=== PATIENT | female | born 1950 | race Hispanic/Latino ===

== ENCOUNTER 2018-03-04 09:43 | Emergency (ER) | payer OTHER ==
[2018-03-04 10:40] LABS: Absolute Lymphocytes (CBC) 2.2 K/uL (0.7-4.9); Absolute Monocytes 0.3 K/uL (0.1-1.3); Absolute Neutrophil 3.6 K/uL (1.8-8.0); Basophils % 0.8 % (0-1.3); Eosinophils % 2.9 % (0-4.4); Hematocrit 40.2 % (36.0-45.0); Lymphocytes % 34.9 % (15.3-44.8); MCH 29.6 pg (27.0-35.0); MCV 89.7 fL (80-100); MPV 9.9 fL (7.6-11.3); Monocytes % 4.5 % (3.3-12.3); RBC Red Blood Cell Count 4.48 M/uL (3.86-4.86)
[2018-03-04] MEDS ORDERED: PROMETHAZINE 25 MG/ML VIAL ONE (10:45)
[2018-03-04] MEDS ORDERED: MEPERIDINE HCL 25 MG/0.5 ML ONE (10:45)
[2018-03-04 10:51] LABS: Protime INR 0.93
[2018-03-04 11:01] LABS: ALT/SGPT 27 U/L (12-78); AST/SGOT 33 U/L (15-37); Albumin 3.3 g/dL (3.4-5.0); Alkaline Phosphatase 107 U/L (45-117); BUN Blood Urea Nitrogen 31 mg/dL (7-18); Bicarbonate 25 mmol/L (21-32); Bilirubin Direct 0.1 mg/dL (0-0.2); Bilirubin Total 0.4 mg/dL (0.2-1.0); Glucose Level 238 mg/dL (74-106); Magnesium 2.4 mg/dL (1.8-2.4); NT PRO-BNP 61 pg/mL (<125); Potassium 4.5 mmol/L (3.5-5.1); Protein, Total 7.3 g/dL (6.4-8.2); Sodium Level 138 mmol/L (136-145); Troponin (Emerg Dept Use Only) < 0.02 ng/mL (0.0-0.045)
--- NOTE | 2018-03-04 11:20 | RAD REPORT ---
EXAM DESCRIPTION: US - Abdomen Exam Limited - 03/04/2018 11:03 am CLINICAL HISTORY: r/o GB;Abd pain COMPARISON: No comparisons FINDINGS: The gallbladder demonstrates no gallstones. No pericholecystic fluid or gallbladder wall t hickening. The common bile duct is upper limit of normal measuring 7 mm. The liver demonstrates no findings of intrahepatic biliary dilatation. IMPRESSION: Negative for gallstones or cholecystitis findings. Upper limit of normal CBD.
--- NOTE | 2018-03-04 11:21 | RAD REPORT ---
EXAM DESCRIPTION: RAD - Chest Single View - 03/04/2018 10:52 am CLINICAL HISTORY: CHEST PAIN Chest pain. COMPARISON: No comparisons FINDINGS: Portable technique limits examination quality. The lungs are grossly clear. The heart is upper limit of normal in size. No displaced fractures. IMPRESSION: No acute intrathoracic process suspected.
--- NOTE | 2018-03-04 12:04 | RAD REPORT ---
EXAM DESCRIPTION: CTAbdomen Pelvis W Contrast - 03/04/2018 11:57 am CLINICAL HISTORY: Abdominal pain. iv only;Abd pain COMPARISON: Abdomen Exam Limited dated 03/04/2018; Chest Single View dated 03/04/2018 TECHNIQUE: Biphasic CT imaging of the abdomen and pelvis was performed with 100 ml non-ionic IV cont rast. All CT scans are performed using dose optimization technique as appropriate and may include automated exposure control or mA/KV adjustment according to patient size. FINDINGS: The lung bases are clear. Mild fatty liver is present. No focal liver lesion or biliary dilatation suspected. The spleen, adren al glands and pancreas show no aggressive or worrisome finding. No bowel obstruction, free air, free fluid or abscess. Prominent sigmoid diverticulosis is present wi thout diverticulitis. The appendix is normal. Small fat containing umbilical hernia. No evidence of s ignificant lymphadenopathy. No suspicious bony findings. IMPRESSION: No acute intra-abdominal or pelvic finding. Fatty liver. Prominent sigmoid diverticulosis coli without diverticulitis.
[2018-03-04] MEDS ORDERED: NA CHLORIDE 0.9% 500 ML ONE (13:05)
--- NOTE | 2018-03-04 13:29 | ER ---
Nurse's Notes [facility] Name: Caryl Watt Age: 67 yrs Sex: Female : 1950 Arrival Date: 03/04/2018 Time: 09:44 Bed 4 Private MD: Diagnosis: Upper abdominal pain, unspecified Presentation: 03/04 09:53 Presenting complaint: Patient states: pain to mid-sternal area and epigastric area aa5 radiating around to right side of back that began 3 days ago. Transition of care: patient was not received from another setting of care. Onset of symptoms was February 2018. Risk Assessment: Do you want to hurt yourself or someone else? Patient reports no desire to harm self or others. Initial Sepsis Screen: Does the patient meet any 2 criteria? No. Patient's initial sepsis screen is negative. Does the patient have a suspected source of infection? No. Patient's initial sepsis screen is negative. Care prior to arrival: None. 09:53 Method Of Arrival: Ambulatory aa5 09:53 Acuity: KAYLENE 3 aa5 Historical: - Allergies: 09:55 No Known Allergies; aa5 - PMHx: 09:55 Hypertension; Diabetes - IDDM; aa5 - PSHx: 09:55 Hysterectomy; aa5 - Immunization history:: Flu vaccine is up to date. - Social history:: Smoking status: Patient/guardian denies using tobacco. - Ebola Screening: : No symptoms or risks identified at this time. Screenin:17 Abuse screen: Denies threats or abuse. Denies injuries from another. Nutritional bp screening: No deficits noted. Tuberculosis screening: No symptoms or risk factors identified. Fall Risk None identified. Assessment: 10:00 General: Appears in no apparent distress. comfortable, obese, Behavior is calm, bp cooperative, appropriate for age. Pain: Complains of pain in chest Pain radiates to back Pain began 2-3 days ago. Neuro: Level of Consciousness is awake, alert, obeys commands, Oriented to person, place, time, situation, Appropriate for age. Cardiovascular: Rhythm is sinus rhythm. Respiratory: Airway is patent Respiratory effort is even, unlabored, Respiratory pattern is regular, symmetrical. GI: No signs and/or symptoms were reported involving the gastrointestinal system. : No signs and/or symptoms were reported regarding the genitourinary system. EENT: No deficits noted. Derm: No deficits noted. Musculoskeletal: Circulation, motion, and sensation intact. Range of motion: intact in all extremities. 10:49 Reassessment: PT TO U/S. bp 11:48 Reassessment: PT TO CT. bp 12:40 Reassessment: ALL CURRENT ORDERS COMPLETED, VS STABLE. bp 13:51 Reassessment: PT D/C HOME AMBULATORY WITH FAMILY, DX WITH NON-SPECIFIC ABDOMINAL PAIN. bp Vital Signs: 09:55 BP 133 / 54; Pulse 74; Resp 16 S; Temp 97.8(O); Pulse Ox 98% on R/A; Weight 88.45 kg aa5 (M); Height 4 ft. 11 in. (149.86 cm) (R); Pain 7/10; 10:30 BP 111 / 60; Pulse 67; Resp 16; Pulse Ox 97% ; bp 11:30 BP 117 / 62; Pulse 69; Resp 16; Pulse Ox 96% ; bp 12:34 BP 91 / 79; Pulse 60; Resp 16; Pulse Ox 98% ; bp 13:36 BP 124 / 64; Pulse 61; Resp 17; Pulse Ox 99% on R/A; aj 09:55 Body Mass Index 39.38 (88.45 kg, 149.86 cm) aa5 ED Course: 09:44 Patient arrived in ED. rg4 09:54 Triage completed. aa5 09:54 Arm band placed on. aa5 09:56 Bonilla Pradhan PA is PHCP. jr8 09:56 Murtaza Erickson MD is Attending Physician. jr8 10:06 Christiano Valdez, RN is Primary Nurse. bp 10:16 Inserted saline lock: 20 gauge in right forearm, using aseptic technique. bp 10:17 Patient has correct armband on for positive identification. Placed in gown. Bed in low bp position. Call light in reach. Side rails up X2. Adult w/ patient. hall monitor on. Pulse ox on. NIBP on. 10:44 EKG done, by ED staff, reviewed by Murtaza Erickson MD. jb1 10:47 X-ray completed. Portable x-ray completed in exam room. Patient tolerated procedure ls3 well. 10:53 XRAY Chest (1 view) In Process Unspecified. EDMS 11:04 US Abdomen Limited In Process Unspecified. EDMS 11:57 CT Abd/Pelvis - W/Contrast In Process Unspecified. EDMS 13:27 Corinne Cornejo MD is Referral Physician. jr8 13:28 Referral Physician role handed off by Corinne Cornejo MD jr8 13:28 Leoncio Mcfadden MD is Referral Physician. jr8 13:36 No provider procedures requiring assistance completed. IV discontinued, intact, aj bleeding controlled, No redness/swelling at site. Pressure dressing applied. 13:50 Patient maintains SpO2 saturation greater than 95% on room air. bp Administered Medications: 10:45 Drug: Demerol 25 mg Route: IVP; Site: right forearm; bp 11:48 Follow up: Response: Pain is decreased bp 10:45 Drug: Promethazine 12.5 mg Route: IVP; Site: right forearm; bp 11:48 Follow up: Response: Marked relief of symptoms bp 13:00 Drug: NS 0.9% 500 ml Route: IV; Rate: bolus; Site: right forearm; bp 13:37 Follow up: Response: No adverse reaction; IV Status: Completed infusion; IV Intake: aj 500ml 13:50 Follow up: IV Status: Completed infusion; IV Intake: 500ml bp Intake: 13:37 IV: 500ml; Total: 500ml. aj 13:50 IV: 500ml; Total: 1000ml. bp Outcome: 13:28 Discharge ordered by . jr8 13:36 Discharged to home ambulatory, with family. aj 13:36 Condition: good 13:36 Discharge instructions given to patient, family, Instructed on discharge instructions, follow up and referral plans. medication usage, Demonstrated understanding of instructions, follow-up care, medications, Prescriptions given X 2. 13:53 Patient left the ED. bp Signatures: Dispatcher [employer] EDMS Robert Marquez jb1 Jolanta Beckham RN RN Cherelle Rodriges RN RN [email or web address] Bonilla Pradhan PA PA jr8 Shirin Castillo4 Christiano Valdez RN RN bp Love Brooks ls3
--- NOTE | 2018-03-04 13:29 | EDPHYS ---
Physician Documentation [facility] Name: Caryl Watt Age: 67 yrs Sex: Female : 1950 Arrival Date: 03/04/2018 Time: 09:44 Bed 4 Private MD: ED Physician Murtaza Erickson HPI: 03/04 10:51 This 67 yrs old Female presents to ER via Ambulatory with complaints of jr8 Abdominal pain/back pain. 10:51 Onset: The symptoms/episode began/occurred acutely, today. Associated signs and jr8 symptoms: Pertinent positives: abdominal pain. Modifying factors: The patient symptoms are alleviated by nothing, the patient symptoms are aggravated by nothing. The patient has not experienced similar symptoms in the past. The patient has not recently seen a physician. Patient stated that she has upper abdominal pain that started today. Had bread with butter this morning that intensified that pain. Pain RUQ and epigastric region that is radiating to right back and scapular region. Denies any other problems . Historical: - Allergies: 09:55 No Known Allergies; aa5 - PMHx: 09:55 Hypertension; Diabetes - IDDM; aa5 - PSHx: 09:55 Hysterectomy; aa5 - Immunization history:: Flu vaccine is up to date. - Social history:: Smoking status: Patient/guardian denies using tobacco. - Ebola Screening: : No symptoms or risks identified at this time. ROS: 10:51 Eyes: Negative for injury, pain, redness, and discharge, ENT: Negative for injury, jr8 pain, and discharge, Neck: Negative for injury, pain, and swelling, Cardiovascular: Negative for chest pain, palpitations, and edema, Respiratory: Negative for shortness of breath, cough, wheezing, and pleuritic chest pain, Back: Negative for injury and pain, MS/Extremity: Negative for injury and deformity, Skin: Negative for injury, rash, and discoloration, Neuro: Negative for headache, weakness, numbness, tingling, and seizure. 10:51 Abdomen/GI: Positive for abdominal pain, Negative for nausea, vomiting, diarrhea, abdominal cramps, abdominal distension, anorexia, dysphagia, hematemesis, black/tarry stool, rectal pain, rectal bleeding, bowel incontinence, flatulence. Exam: 10:51 Eyes: Pupils equal round and reactive to light, extra-ocular motions intact. Lids and jr8 lashes normal. Conjunctiva and sclera are non-icteric and not injected. Cornea within normal limits. Periorbital areas with no swelling, redness, or edema. ENT: Nares patent. No nasal discharge, no septal abnormalities noted. Tympanic membranes are normal and external auditory canals are clear. Oropharynx with no redness, swelling, or masses, exudates, or evidence of obstruction, uvula midline. Mucous membranes moist. Neck: Trachea midline, no thyromegaly or masses palpated, and no cervical lymphadenopathy. Supple, full range of motion without nuchal rigidity, or vertebral point tenderness. No Meningismus. Cardiovascular: Regular rate and rhythm with a normal S1 and S2. No gallops, murmurs, or rubs. Normal PMI, no JVD. No pulse deficits. Respiratory: Lungs have equal breath sounds bilaterally, clear to auscultation and percussion. No rales, rhonchi or wheezes noted. No increased work of breathing, no retractions or nasal flaring. Back: No spinal tenderness. No costovertebral tenderness. Full range of motion. Skin: Warm, dry with normal turgor. Normal color with no rashes, no lesions, and no evidence of cellulitis. MS/ Extremity: Pulses equal, no cyanosis. Neurovascular intact. Full, normal range of motion. Neuro: Awake and alert, GCS 15, oriented to person, place, time, and situation. Cranial nerves II-XII grossly intact. Motor strength 5/5 in all extremities. Sensory grossly intact. Cerebellar exam normal. Normal gait. 10:51 Abdomen/GI: Inspection: obese Bowel sounds: active, all quadrants, Palpation: soft, in all quadrants, moderate abdominal tenderness, in the epigastric area and right upper quadrant, mass, is not appreciated, rebound tenderness, is not appreciated, voluntary guarding, is not appreciated, involuntary guarding, is not appreciated, no appreciated organomegaly, Indicators: McBurney's point is not tender, Velazco's sign is positive, Rovsing's sign is negative. 10:56 ECG was reviewed by the Attending Physician. [facility] Vital Signs: 09:55 BP 133 / 54; Pulse 74; Resp 16 S; Temp 97.8(O); Pulse Ox 98% on R/A; Weight 88.45 kg aa5 (M); Height 4 ft. 11 in. (149.86 cm) (R); Pain 7/10; 10:30 BP 111 / 60; Pulse 67; Resp 16; Pulse Ox 97% ; bp 11:30 BP 117 / 62; Pulse 69; Resp 16; Pulse Ox 96% ; bp 12:34 BP 91 / 79; Pulse 60; Resp 16; Pulse Ox 98% ; bp 13:36 BP 124 / 64; Pulse 61; Resp 17; Pulse Ox 99% on R/A; aj 09:55 Body Mass Index 39.38 (88.45 kg, 149.86 cm) aa5 MDM: 09:57 Patient medically screened. jr8 13:26 Data reviewed: vital signs, nurses notes, lab test result(s), radiologic studies, CT jr8 scan, ultrasound, and as a result, I will discharge patient. Data interpreted: Pulse oximetry: on room air is 98 %. Interpretation: normal. Counseling: I had a detailed discussion with the patient and/or guardian regarding: the historical points, exam findings, and any diagnostic results supporting the discharge/admit diagnosis, lab results, radiology results, the need for outpatient follow up, a water resource engineer, to return to the emergency department if symptoms worsen or persist or if there are any questions or concerns that arise at home. Response to treatment: the patient's symptoms have markedly improved after treatment. ED course: Discussed with family that there are no acute findings on imaging or lab work. Could be a functional gallbladder problem in which HIDA scan needs to be performed. Will refer to GI for f/u. Family and patient good with this . 03/04 10:15 Order name: Basic Metabolic Panel; Complete Time: 11:03 bp 03/04 10:15 Order name: CBC with Diff; Complete Time: 10:51 bp 03/04 10:15 Order name: LFT's; Complete Time: 11:03 bp 03/04 10:15 Order name: Magnesium; Complete Time: 11:03 bp 03/04 10:15 Order name: NT PRO-BNP; Complete Time: 11:03 bp 03/04 10:15 Order name: PT-INR; Complete Time: 10:55 bp 03/04 10:15 Order name: Troponin (emerg Dept Use Only); Complete Time: 11:03 bp 03/04 10:15 Order name: XRAY Chest (1 view); Complete Time: 11:36 bp 03/04 10:23 Order name: Lipase; Complete Time: 10:55 jr8 03/04 10:23 Order name: US Abdomen Limited; Complete Time: 11:36 jr8 03/04 11:36 Order name: CT Abd/Pelvis - W/Contrast; Complete Time: 12:14 jr8 03/04 10:15 Order name: EKG; Complete Time: 10:18 bp 03/04 10:15 Order name: Cardiac monitoring; Complete Time: 10:16 bp 03/04 10:15 Order name: EKG - Nurse/Tech; Complete Time: 10:45 bp 03/04 10:15 Order name: IV Saline Lock; Complete Time: 10:16 bp 03/04 10:15 Order name: Labs collected and sent; Complete Time: 10:16 bp 03/04 10:15 Order name: O2 Per Protocol; Complete Time: 10:16 bp 03/04 10:15 Order name: O2 Sat Monitoring; Complete Time: 10:15 bp EC:56 Rate is 65 beats/min. Rhythm is regular, Normal Sinus Rhythm. QRS [place] is Normal. CO jr8 interval is prolonged at 248 msec. QRS interval is normal at 82 msec. QT interval is normal at 428 msec. No Q waves. T waves are Normal. No ST changes noted. Clinical impression: 1st degree heart block. Interpreted by me. Reviewed by me. Administered Medications: 10:45 Drug: Demerol 25 mg Route: IVP; Site: right forearm; bp 11:48 Follow up: Response: Pain is decreased bp 10:45 Drug: Promethazine 12.5 mg Route: IVP; Site: right forearm; bp 11:48 Follow up: Response: Marked relief of symptoms bp 13:00 Drug: NS 0.9% 500 ml Route: IV; Rate: bolus; Site: right forearm; bp 13:37 Follow up: Response: No adverse reaction; IV Status: Completed infusion; IV Intake: aj 500ml 13:50 Follow up: IV Status: Completed infusion; IV Intake: 500ml bp Disposition: 03/04/18 13:28 Discharged to Home. Impression: Upper abdominal pain, unspecified. - Condition is Stable. - Discharge Instructions: Abdominal Pain, Adult, Gallbladder Nuclear Scan. - Prescriptions for Tylenol- Codeine #3 300-30 mg Oral Tablet - take 2 tablets by ORAL route every 6 hours As needed; 12 tablet. Zofran 4 mg Oral Tablet - take 1 tablet by ORAL route every 12 hours As needed; 20 tablet. - Medication Reconciliation Form, Thank You Letter, Antibiotic Education, Prescription Opioid Use form. - Follow up: Corinne Cornejo MD; When: 2 - 3 days; Reason: Recheck today's complaints, Continuance of care, Re-evaluation by your physician. Follow up: Leoncio Mcfadden MD; When: 2 - 3 days; Reason: Recheck today's complaints, Continuance of care, Re-evaluation by your physician. - Problem is new. - Symptoms have improved. Addendum: 03/07/2018 08:09 Co-signature as Attending Physician, Murtaza Erickson MD I agree with the assessment and c syed plan of care. Signatures: Dispatcher [employer] EDMurtaza Alvarado MD MD cha Calderon, Audri, RN RN aa5 Bonilla Pradhan PA PA jr8 Christiano Valdez RN RN bp Myers, Amanda RN aj Corrections: (The following items were deleted from the chart) 03/04 13:53 13:28 03/04/2018 13:28 Discharged to Home. Impression: Upper abdominal pain, bp unspecified. Condition is Stable. Forms are Medication Reconciliation Form, Thank You Letter, Antibiotic Education, Prescription Opioid Use. Follow up: Leoncio Mcfadden; When: 2 - 3 days; Reason: Recheck today's complaints, Continuance of care, Re-evaluation by your physician. Problem is new. Symptoms have improved. jr8
--- NOTE | 2018-03-05 07:04 | EKG ---
Test Date: 2018-03-04 Test Time: 10:24:08 Design Engineering Specialist: LIZZ MEASUREMENT RESULTS: Intervals: Rate: 65 SD: 248 QRSD: 82 QT: 412 QTc: 428 [place]: P: 92 SD: 248 QRS: -23 T: 31 INTERPRETIVE STATEMENTS: Sinus rhythm with 1st degree AV block Minimal voltage criteria for LVH, may be normal variant Borderline ECG No previous ECG available for comparison Electronically Signed On 03-05-18 07:03:17 ADVERTISING CLERK by Facundo Martines
== END 2018-03-04 13:53 | disposition home or self-care (01) ==
LOC: ER 09:43
DX: R10.10 Upper abdominal pain, unspecified (principal); I10 Essential (primary) hypertension
CPT/HCPCS: 36415; 71045; 74177; 76705; 80048; 80076; 83690; 83735; 83880; 84484; 85025; 85610; 93005; 96361; 96374; 96375; 99285; J2175; J2550; Q9967

== ENCOUNTER 2018-04-22 13:45 | Emergency (ER) | payer OTHER ==
[2018-04-22] MEDS ORDERED: PIPER/TAZO/NS 3.375gm 3.375 GM/100 ML BAG ONE (15:00)
[2018-04-22] MEDS ORDERED: NA CHLORIDE 0.9% 1,000 ML ONE ×2 (15:00→15:58)
[2018-04-22 15:05] LABS: Absolute Lymphocytes (CBC) 1.4 K/uL (0.7-4.9); Absolute Monocytes 0.3 K/uL (0.1-1.3); Absolute Neutrophil 4.1 K/uL (1.8-8.0); Basophils % 0.6 % (0-1.3); Eosinophils % 1.1 % (0-4.4); Hematocrit 41.4 % (36.0-45.0); Lymphocytes % 24.1 % (15.3-44.8); Monocytes % 4.9 % (3.3-12.3); RBC Red Blood Cell Count 4.59 M/uL (3.86-4.86)
[2018-04-22 15:14] LABS: Albumin 3.4 g/dL (3.4-5.0); Bilirubin Direct 0.2 mg/dL (0-0.2); Bilirubin Total 0.7 mg/dL (0.2-1.0); Potassium 3.9 mmol/L (3.5-5.1); Protein, Total 7.1 g/dL (6.4-8.2)
--- NOTE | 2018-04-22 16:09 | RAD REPORT ---
EXAM DESCRIPTION: CTAbdomen Pelvis W Contrast - 04/22/2018 3:50 pm CLINICAL HISTORY: Abdominal pain. eval rectal abscess;Abd pain COMPARISON: Abdomen Pelvis W Contrast dated 03/04/2018 TECHNIQUE: Biphasic CT imaging of the abdomen and pelvis was performed with 100 ml non-ionic IV cont rast. All CT scans are performed using dose optimization technique as appropriate and may include automated exposure control or mA/KV adjustment according to patient size. FINDINGS: The lung bases are clear. Mild diffuse fatty liver is present. No focal mass or intrahepatic dilatation. The spleen, pancreas a drenal and kidneys are within limits. No bowel obstruction, free air, free fluid or abscess. Specifically, no perirectal abscess suspected. Sigmoid diverticulosis is present without diverticulitis. The appendix is normal. No evidence of si gnificant lymphadenopathy. No suspicious bony findings. IMPRESSION: No acute intra-abdominal or pelvic finding. Specifically, a perirectal abscess is not se en. Fatty liver. Diverticulosis without diverticulitis.
--- NOTE | 2018-04-22 16:34 | EDPHYS ---
Physician Documentation [facility] Name: Caryl Watt Age: 67 yrs Sex: Female : 1950 Arrival Date: 04/22/2018 Time: 13:49 Bed 7 Private MD: ED Physician Remberto Carr HPI: 04/22 16:27 This 67 yrs old Female presents to ER via Ambulatory with complaints of gs Abscess. 16:27 The patient presents to the emergency department with pain in the rectal area, that is gs moderate. Onset: The symptoms/episode began/occurred 2 day(s) ago, and became worse and became persistent. Context: the patient has no known special context relating to the rectal area complaint(s). Modifying factors: The symptoms are alleviated by nothing, The symptoms are aggravated by sitting position. Associate signs and symptoms: Pertinent negatives: fever. The patient has not experienced similar symptoms in the past. The patient has been recently seen by a physician: Dr. cervantes, thought abscess ruled out vaginal source, thinks maybe rectal source wants work up gs consult. Historical: - Allergies: 14:11 NKA; iw - Home Meds: 14:11 Levemir 100 unit/mL subcutaneous soln 70 unit daily [Active]; Novolog 100 unit/mL Sub-Q iw soln before meals [Active]; Farxiga 10 mg oral tab 1 tab once daily [Active]; 14:17 lisinopril 20 mg Oral tab 1 tab once daily [Active]; atorvastatin 10 mg oral tab 1 tab iw once daily [Active]; acetaminophen-codeine 300-30 mg Oral tab 1 tab every 4-6 hours [Active]; Probiotic oral oral [Active]; aspirin 81 mg Oral TbEC 1 tab once daily [Active]; chromium daily [Active]; Vitamin B-12 Oral daily [Active]; milk thistle oral oral daily [Active]; - PMHx: 14:11 Diabetes - IDDM; Hypertension; Hyperlipidemia; iw - PSHx: 14:11 Hysterectomy; Tubal ligation; iw - Immunization history:: Adult Immunizations up to date. - Social history:: Smoking status: Patient/guardian denies using tobacco. - Ebola Screening: : Patient negative for fever greater than or equal to 101.5 degrees Fahrenheit, and additional compatible Ebola Virus Disease symptoms Patient denies exposure to infectious person Patient denies travel to an Ebola-affected area in the 21 days before illness onset No symptoms or risks identified at this time. ROS: 16:27 Constitutional: Negative for fever. gs 16:27 All other systems are negative. Exam: 16:27 Head/Face: Normocephalic, atraumatic. Eyes: Pupils equal round and reactive to light, gs extra-ocular motions intact. Lids and lashes normal. Conjunctiva and sclera are non-icteric and not injected. Cornea within normal limits. Periorbital areas with no swelling, redness, or edema. ENT: Nares patent. No nasal discharge, no septal abnormalities noted. Tympanic membranes are normal and external auditory canals are clear. Oropharynx with no redness, swelling, or masses, exudates, or evidence of obstruction, uvula midline. Mucous membranes moist. Neck: Trachea midline, no thyromegaly or masses palpated, and no cervical lymphadenopathy. Supple, full range of motion without nuchal rigidity, or vertebral point tenderness. No Meningismus. Chest/axilla: Normal chest wall appearance and motion. Nontender with no deformity. No lesions are appreciated. Cardiovascular: Regular rate and rhythm with a normal S1 and S2. No gallops, murmurs, or rubs. Normal PMI, no JVD. No pulse deficits. Respiratory: Lungs have equal breath sounds bilaterally, clear to auscultation and percussion. No rales, rhonchi or wheezes noted. No increased work of breathing, no retractions or nasal flaring. Back: No spinal tenderness. No costovertebral tenderness. Full range of motion. Skin: Warm, dry with normal turgor. Normal color with no rashes, no lesions, and no evidence of cellulitis. MS/ Extremity: Pulses equal, no cyanosis. Neurovascular intact. Full, normal range of motion. 16:27 Constitutional: The patient appears alert, awake. 16:27 Abdomen/GI: Palpation: abdomen is soft and non-tender, in all quadrants, Rectal exam: tenderness, that is severe, on right no erythema or induration, . Vital Signs: 14:18 BP 97 / 53; Pulse 74; Resp 16; Temp 97.9(O); Pulse Ox 98% on R/A; Weight 87.09 kg; iw Height 4 ft. 11 in. (149.86 cm); Pain 8/10; 16:14 BP 120 / 73; Pulse 68; Resp 16; Pulse Ox 97% ; bp 14:18 Body Mass Index 38.78 (87.09 kg, 149.86 cm) iw MDM: 14:13 Patient medically screened. gs 16:27 Differential diagnosis: hemorrhoids, fissure, abscess. Data reviewed: vital signs, nurses notes, lab test result(s), radiologic studies. Physician consultation: Agusto Neff MD and will see patient. 04/22 14:16 Order name: Basic Metabolic Panel; Complete Time: 15:18 04/22 14:16 Order name: CBC with Diff; Complete Time: 15:18 04/22 14:16 Order name: Hepatic Function; Complete Time: 15:18 04/22 14:16 Order name: Lipase; Complete Time: 15:18 04/22 14:16 Order name: Blood Culture* 04/22 14:34 Order name: Lactate; Complete Time: 15:18 04/22 14:16 Order name: IV Saline Lock; Complete Time: 14:51 04/22 14:16 Order name: Labs collected and sent; Complete Time: 14:51 04/22 14:16 Order name: CT Abd/Pelvis - W/Contrast; Complete Time: 16:12 gs Administered Medications: 14:53 Drug: Zosyn 3.375 grams Route: IVPB; Infused Over: 60 mins; Site: left forearm; bp 16:13 Follow up: IV Status: Completed infusion; IV Intake: 100ml bp 14:53 Drug: NS 0.9% 1000 ml Route: IV; Rate: 1 bolus; Site: left forearm; bp 16:13 Follow up: IV Status: Completed infusion; IV Intake: 1000ml bp 16:09 Drug: NS 0.9% 1000 ml Route: IV; Rate: 1 bolus; Site: left antecubital; aj1 Disposition: 04/22/18 16:33 Discharged to Home. Impression: Acute anal fissure - possible early rectal abscess, , Dehydration. - Condition is Stable. - Discharge Instructions: Anal Fissure, Adult, How to Take a Sitz Bath. - Prescriptions for lidocaine- hydrocortisone-aloe 2.8-0.55 % Rectal gel - insert 1 applicatorful by RECTAL route 2 times per day As needed; 6 Cartridge. Flagyl 250 mg Oral Tablet - take 1 tablet by ORAL route every 12 hours for 7 days; 14 tablet. Keflex 250 mg Oral Capsule - take 1 capsule by ORAL route every 12 hours for 7 days; 14 capsule. - Medication Reconciliation Form, Thank You Letter, Antibiotic Education, Prescription Opioid Use form. - Follow up: Agusto Neff MD; When: 2 - 3 days; Reason: Re-evaluation by your physician. Signatures: Dispatcher [employer] EDPinky Barreto RN RN aj1 Neris Uribe RN RN iw Remberto Carr MD MD Christiano Valdez RN RN bp Corrections: (The following items were deleted from the chart) 16:41 16:33 04/22/2018 16:33 Discharged to Home. Impression: Acute anal fissure. Condition is gs Stable. Forms are Medication Reconciliation Form, Thank You Letter, Antibiotic Education, Prescription Opioid Use. Follow up: Agusto Neff; When: 2 - 3 days; Reason: Re-evaluation by your physician. gs 17:03 16:41 04/22/2018 16:33 Discharged to Home. Impression: Acute anal fissure - possible bp early rectal abscess, ; Dehydration. Condition is Stable. Discharge Instructions: Anal Fissure, Adult, How to Take a Sitz Bath. Prescriptions for zcfveogqr-trdenpcaohxmxp-uoct 2.8-0.55 % Rectal gel - insert 1 applicatorful by RECTAL route 2 times per day As needed; 6 Cartridge, Flagyl 250 mg Oral Tablet - take 1 tablet by ORAL route every 12 hours for 7 days; 14 tablet, Keflex 250 mg Oral Capsule - take 1 capsule by ORAL route every 12 hours for 7 days; 14 capsule. and Forms are Medication Reconciliation Form, Thank You Letter, Antibiotic Education, Prescription Opioid Use. Follow up: Agusto Neff; When: 2 - 3 days; Reason: Re-evaluation by your physician. gs
--- NOTE | 2018-04-22 16:34 | ER ---
Nurse's Notes [facility] Name: Caryl Watt Age: 67 yrs Sex: Female : 1950 Arrival Date: 04/22/2018 Time: 13:49 Bed 7 Private MD: Diagnosis: Acute anal fissure-possible early rectal abscess, ;Dehydration Presentation: 04/22 14:07 Presenting complaint: Patient states: sent by Dr. Diaz for perirectal abscess. iw Transition of care: patient was not received from another setting of care. Onset of symptoms was April 22, 2018. Risk Assessment: Do you want to hurt yourself or someone else? Patient reports no desire to harm self or others. Initial Sepsis Screen: Does the patient meet any 2 criteria? No. Patient's initial sepsis screen is negative. Does the patient have a suspected source of infection? No. Patient's initial sepsis screen is negative. Care prior to arrival: None. 14:07 Method Of Arrival: Ambulatory iw 14:07 Acuity: KAYLENE 3 iw Historical: - Allergies: 14:11 NKA; iw - Home Meds: 14:11 Levemir 100 unit/mL subcutaneous soln 70 unit daily [Active]; Novolog 100 unit/mL Sub-Q iw soln before meals [Active]; Farxiga 10 mg oral tab 1 tab once daily [Active]; 14:17 lisinopril 20 mg Oral tab 1 tab once daily [Active]; atorvastatin 10 mg oral tab 1 tab iw once daily [Active]; acetaminophen-codeine 300-30 mg Oral tab 1 tab every 4-6 hours [Active]; Probiotic oral oral [Active]; aspirin 81 mg Oral TbEC 1 tab once daily [Active]; chromium daily [Active]; Vitamin B-12 Oral daily [Active]; milk thistle oral oral daily [Active]; - PMHx: 14:11 Diabetes - IDDM; Hypertension; Hyperlipidemia; iw - PSHx: 14:11 Hysterectomy; Tubal ligation; iw - Immunization history:: Adult Immunizations up to date. - Social history:: Smoking status: Patient/guardian denies using tobacco. - Ebola Screening: : Patient negative for fever greater than or equal to 101.5 degrees Fahrenheit, and additional compatible Ebola Virus Disease symptoms Patient denies exposure to infectious person Patient denies travel to an Ebola-affected area in the 21 days before illness onset No symptoms or risks identified at this time. Screenin:15 Abuse screen: Denies threats or abuse. Denies injuries from another. Nutritional bp screening: No deficits noted. Tuberculosis screening: No symptoms or risk factors identified. Fall Risk None identified. Assessment: 14:07 General: Appears in no apparent distress. comfortable, obese, Behavior is calm, bp cooperative, appropriate for age. Pain: Complains of pain in gluteal cleft. Neuro: Level of Consciousness is awake, alert, obeys commands, Oriented to person, place, time, situation, Appropriate for age. Cardiovascular: No deficits noted. Respiratory: Airway is patent Respiratory effort is even, unlabored, Respiratory pattern is regular, symmetrical. GI: No signs and/or symptoms were reported involving the gastrointestinal system. : No signs and/or symptoms were reported regarding the genitourinary system. EENT: No deficits noted. Derm: Abscess located on gluteal cleft. Musculoskeletal: Circulation, motion, and sensation intact. Range of motion: intact in all extremities. 16:14 Reassessment: PT RETURNED FROM CT, ALL CURRENT ORDERS COMPLETED. DISPO PENDING. bp 17:02 Reassessment: PT D/C HOME AMBULATORY WITH FAMILY, DX WITH ANAL FISSURE. bp Vital Signs: 14:18 BP 97 / 53; Pulse 74; Resp 16; Temp 97.9(O); Pulse Ox 98% on R/A; Weight 87.09 kg; iw Height 4 ft. 11 in. (149.86 cm); Pain 8/10; 16:14 BP 120 / 73; Pulse 68; Resp 16; Pulse Ox 97% ; bp 14:18 Body Mass Index 38.78 (87.09 kg, 149.86 cm) iw ED Course: 13:49 Patient arrived in ED. as 13:53 Remberto Carr MD is Attending Physician. gs 13:54 Christiano Valdez, YAIR is Primary Nurse. bp 14:08 Triage completed. iw 14:15 Patient has correct armband on for positive identification. Placed in gown. Bed in low bp position. Call light in reach. Side rails up X2. Adult w/ patient. 14:15 Arm band placed on. bp 14:30 Inserted saline lock: 20 gauge in left forearm, using aseptic technique. Blood bp collected. 15:[address] jj2 15:31 CT completed. Patient tolerated procedure well. Patient moved back from CT. vr 15:38 CT Abd/Pelvis - W/Contrast In Process Unspecified. EDMS 16:33 Agusto Neff MD is Referral Physician. 17:02 No provider procedures requiring assistance completed. IV discontinued, intact, bp bleeding controlled, No redness/swelling at site. Pressure dressing applied. Administered Medications: 14:53 Drug: Zosyn 3.375 grams Route: IVPB; Infused Over: 60 mins; Site: left forearm; bp 16:13 Follow up: IV Status: Completed infusion; IV Intake: 100ml bp 14:53 Drug: NS 0.9% 1000 ml Route: IV; Rate: 1 bolus; Site: left forearm; bp 16:13 Follow up: IV Status: Completed infusion; IV Intake: 1000ml bp 16:09 Drug: NS 0.9% 1000 ml Route: IV; Rate: 1 bolus; Site: left antecubital; aj1 Intake: 16:13 IV: 1000ml; Total: 1000ml. bp 16:13 IV: 100ml; Total: 1100ml. bp Outcome: 16:33 Discharge ordered by . gs 17:03 Discharged to home ambulatory, with family. bp 17:03 Condition: stable 17:03 Discharge instructions given to patient, Instructed on discharge instructions, follow up and referral plans. medication usage, Demonstrated understanding of instructions, follow-up care, medications, Prescriptions given X 3. 17:03 Patient left the ED. bp Signatures: Dispatcher [employer] EDCO Pinky Kaufman RN RN ajDave Aceves jSamantha Menard as Neris Uribe RN RN iw Davis, Victoria vr Starr, Gregory, MD MD gs Peltier, Brian RN RN bp Corrections: (The following items were deleted from the chart) 14:35 14:18 BP 97 / 53; Pulse 74bpm; Resp 16bpm; Pulse Ox 98% RA; 87.09 kg; Height 4 ft. 11 iw in.; BMI: 38.7; Pain 8/10; iw
== END 2018-04-22 17:03 | disposition home or self-care (01) ==
LOC: ER 13:45
DX: K60.0 Acute anal fissure (principal); E86.0 Dehydration; K57.30 Diverticulosis of large intestine without perforation or abscess without bleeding; K76.0 Fatty (change of) liver, not elsewhere classified; E11.9 Type 2 diabetes mellitus without complications; E78.5 Hyperlipidemia, unspecified; I10 Essential (primary) hypertension; Z79.4 Long term (current) use of insulin; Z79.82 Long term (current) use of aspirin; Z79.899 Other long term (current) drug therapy
CPT/HCPCS: 36415; 74177; 80048; 80076; 83605; 83690; 85025; 87040 ×2; 96365; 99284; J2543; J7030 ×2; Q9967

== ENCOUNTER 2018-09-25 14:46 | Emergency (ER) | payer OTHER ==
--- OUTSIDE RECORDS SUMMARY | 2018-09-25 14:48 | XMS REPORT | Encounter Summary ---
:1950 Author Reason for Visit Bilateral ear problem; dizzy spells; new patient Instructions 1. Acute right otitis media amoxicillin 875 mg tablet Discussion Note RTC for any other concerns Patient educational handouts: No information available. Plan of Care Patient Instructions medication as directed; rec otc allergy medication; push fluids Reminders Provider Appointments None recorded. Lab None recorded. Referral None recorded. Procedures None recorded. Surgeries None recorded. Imaging None recorded. Medications Name Start Date amoxicillin 875 mg tablet Take 1 tablet every 12 hours by oral route for 7 days. Jardiance Levemir FlexTouch U-100 Insulin 100 unit/mL (3 mL) subcutaneous pen Inject by subcutaneous route. Medications Administered None recorded. Vitals Height Weight BMI Blood Pressure 59 in 189 lbs 16 oz 38.4 kg/m2 138/71 mm[Hg] Lab Results None recorded. Allergies Code Code System Name Reaction Severity Status Onset NKDA Problems None recorded. Procedures None recorded. Vaccine List None recorded. Social History Smoking Status Never Smoker Past Encounters 06/09/2018 Acute Right Otitis Media [employer]: [address] [place] [address], [address], [place] [address], Ph. History of Present Illness Note: pt to clinic for right ear pain; she reports some dizziness; symptoms x 4 days; denies fever, cough, congestion; she reports she vomited a few times; she has applied otc debrox and alcoholReview of Systems: ROS as noted in the HPI Review of Systems None recorded. Physical Exam [facility] Brief Adult Exam - M/F Reported By: Patient Constitutional: General Appearance: healthy-appearing, well-nourished, well-developed. Level of Distress: NAD. Ambulation: ambulating normally Psychiatric: Mental Status: active and alert ENMT: Ears: TM erythematous, TM bulging, middle ear fluid; right. Nose: nasal passages clear. Oropharynx: moist mucous membranes, no erythema, no exudates Lungs: Auscultation: breath sounds normal Cardiovascular: Heart Auscultation: RRR, normal S1, normal S2, no murmurs
[2018-09-25 15:56] LABS: Urine Bacteria <20 /HPF (<20); Urine Culture Reflex Order NOT NEEDED; Urine RBC <5 /HPF (NONE SEEN)
[2018-09-25 16:19] LABS: Albumin 3.9 g/dL (3.4-5.0); Bilirubin Direct 0.1 mg/dL (0-0.2); Bilirubin Total 0.5 mg/dL (0.2-1.0); Potassium 4.8 mmol/L (3.5-5.1); Protein, Total 7.9 g/dL (6.4-8.2)
[2018-09-25 16:22] LABS: Absolute Lymphocytes (CBC) 2.1 K/uL (0.7-4.9); Absolute Monocytes 0.3 K/uL (0.1-1.3); Absolute Neutrophil 3.3 K/uL (1.8-8.0); Basophils % 0.4 % (0-1.3); Eosinophils % 1.6 % (0-4.4); Hematocrit 43.1 % (36.0-45.0); Lymphocytes % 36.6 % (15.3-44.8); Monocytes % 5.1 % (3.3-12.3); RBC Red Blood Cell Count 4.79 M/uL (3.86-4.86)
[2018-09-25] MEDS ORDERED: MORPHINE 4 MG/ML SYR ONE (17:58)
[2018-09-25] MEDS ORDERED: ONDANSETRON 4 MG/2 ML VIAL ONE (17:58)
--- NOTE | 2018-09-25 19:42 | RAD REPORT ---
EXAM DESCRIPTION: CT - Stone Protocol - 09/25/2018 7:22 pm CLINICAL HISTORY: Abdominal pain. Right flank pain COMPARISON: April 2018 TECHNIQUE: Computed axial tomography of the abdomen pelvis was obtained without oral or IV contrast. Lack of IV and oral contrast limits evaluation of solid organs, bowel, and vessels. Coronal reformat marcell images were obtained and reviewed. All CT scans are performed using dose optimization technique as appropriate and may include automated exposure control or mA/KV adjustment according to patient size. FINDINGS: A renal calculus is not seen. An ureteral calculus is not noted. A bladder calculus is not present. The liver, spleen, pancreas and adrenals appear grossly normal There is no evidence of diverticulitis. The appendix appears normal Hysterectomy. Tiny umbilical hernia IMPRESSION: Negative for a genitourinary calculus
[2018-09-25 20:22] LABS: Urine Blood NEGATIVE (NEG); Urine Glucose 2+ (NEG); Urine Protein NEGATIVE (NEG)
--- NOTE | 2018-09-25 20:45 | EDPHYS ---
Physician Documentation [facility] Name: Caryl Watt Age: 68 yrs Sex: Female : 1950 Arrival Date: 09/25/2018 Time: 14:52 Bed 7 Private MD: ED Physician Remberto Carr HPI: 09/25 17:02 This 68 yrs old Female presents to ER via Ambulatory with complaints of pm1 Abdominal Pain. 17:02 The patient presents with abdominal pain in the right upper quadrant. Onset: The pm1 symptoms/episode began/occurred 1 week(s) ago. The symptoms radiate to Radiates from RUQ to Right lower flank and then to Right groin area. Associated signs and symptoms: Pertinent negatives: nausea, vomiting, and diarrhea, chest pain, constipation, dysuria, fever, headache, shortness of breath. The symptoms are described as intermittent. Modifying factors: The symptoms are alleviated by nothing, the symptoms are aggravated by Reports pain reproduced and increased with sitting up from reclining chair. Severity of pain: in the emergency department the pain is unchanged. The patient has experienced a previous episode, 3-4 months ago. The patient has not recently seen a physician, has appointment with PCP on Wednesday for the same complaint. Historical: - Allergies: 15:07 NKA; la1 - PMHx: 15:07 Diabetes - IDDM; Hyperlipidemia; Hypertension; Anxiety; la1 - Immunization history:: Adult Immunizations up to date. - Social history:: Smoking status: Patient/guardian denies using tobacco. - Ebola Screening: : No symptoms or risks identified at this time. ROS: 17:05 Constitutional: Negative for fever, chills, and weight loss, Eyes: Negative for injury, pm1 pain, redness, and discharge, ENT: Negative for injury, pain, and discharge, Neck: Negative for injury, pain, and swelling, Cardiovascular: Negative for chest pain, palpitations, and edema, Respiratory: Negative for shortness of breath, cough, wheezing, and pleuritic chest pain. 17:05 : Negative for injury, bleeding, discharge, and swelling, MS/Extremity: Negative for injury and deformity, Skin: Negative for injury, rash, and discoloration, Neuro: Negative for headache, weakness, numbness, tingling, and seizure. 17:05 Abdomen/GI: Positive for abdominal pain, Negative for nausea, vomiting, and diarrhea, constipation. 17:05 Back: Positive for flank pain, on the right, Negative for injury or acute deformity, decreased range of motion. Exam: 17:05 Constitutional: This is a well developed, well nourished patient who is awake, alert, pm1 and in no acute distress. Head/Face: Normocephalic, atraumatic. Eyes: Pupils equal round and reactive to light, extra-ocular motions intact. Lids and lashes normal. Conjunctiva and sclera are non-icteric and not injected. Cornea within normal limits. Periorbital areas with no swelling, redness, or edema. ENT: Nares patent. No nasal discharge, no septal abnormalities noted. Tympanic membranes are normal and external auditory canals are clear. Oropharynx with no redness, swelling, or masses, exudates, or evidence of obstruction, uvula midline. Mucous membranes moist. Neck: Trachea midline, no thyromegaly or masses palpated, and no cervical lymphadenopathy. Supple, full range of motion without nuchal rigidity, or vertebral point tenderness. No Meningismus. Chest/axilla: Normal chest wall appearance and motion. Nontender with no deformity. No lesions are appreciated. Cardiovascular: Regular rate and rhythm with a normal S1 and S2. No gallops, murmurs, or rubs. Normal PMI, no JVD. No pulse deficits. Respiratory: Lungs have equal breath sounds bilaterally, clear to auscultation and percussion. No rales, rhonchi or wheezes noted. No increased work of breathing, no retractions or nasal flaring. 17:05 Skin: Warm, dry with normal turgor. Normal color with no rashes, no lesions, and no evidence of cellulitis. MS/ Extremity: Pulses equal, no cyanosis. Neurovascular intact. Full, normal range of motion. 17:05 Abdomen/GI: Inspection: abdomen appears normal, Bowel sounds: normal, Palpation: soft, mild abdominal tenderness, in the upper anterior aspect of right lateral abdomen, mass, is not appreciated, rebound tenderness, is not appreciated. 17:05 Back: pain, of the lumbar area and right low back, normal spinal alignment noted, vertebral tenderness, is not appreciated. 17:05 Neuro: Orientation: is normal, Motor: is normal, Sensation: is normal, no obvious gross deficits. Vital Signs: 15:09 BP 116 / 67; Pulse 71; Resp 16; Temp 97.5(TE); Pulse Ox 98% on R/A; Weight 86.18 kg; la1 Height 5 ft. 10 in. (177.80 cm); Pain 8/10; 16:00 BP 116 / 66; Pulse 68; Resp 18; Pulse Ox 99% on R/A; ph 17:00 BP 127 / 72; Pulse 72; Resp 16; Pulse Ox 98% on R/A; ph 18:00 BP 138 / 67; Pulse 75; Resp 18; Pulse Ox 97% on R/A; ph 19:00 BP 127 / 63; Pulse 61; Resp 18; Pulse Ox 98% on R/A; ph 20:00 BP 130 / 63; Pulse 63; Resp 18; Pulse Ox 98% ; ea 21:30 BP 121 / 55; Pulse 61; Resp 18; Temp 97.6; Pulse Ox 97% on R/A; ea 22:00 BP 112 / 72; Pulse 67; Resp 18; Pulse Ox 97% on R/A; ea 15:09 Body Mass Index 27.26 (86.18 kg, 177.80 cm) la1 MDM: 15:36 Patient medically screened. pm1 20:43 Data reviewed: vital signs. Data interpreted: Pulse oximetry: on room air is 98 %. pm1 Interpretation: normal. Counseling: I had a detailed discussion with the patient and/or guardian regarding: the historical points, exam findings, and any diagnostic results supporting the discharge/admit diagnosis, lab results, radiology results, the need for outpatient follow up, to return to the emergency department if symptoms worsen or persist or if there are any questions or concerns that arise at home. 09/25 15:16 Order name: Urine Culture sn 09/25 15:16 Order name: Urine Microscopic Only; Complete Time: 16:38 snw 09/25 15:29 Order name: Basic Metabolic Panel pm1 09/25 15:29 Order name: CBC with Diff pm1 09/25 15:29 Order name: Creatinine for Radiology pm1 09/25 15:29 Order name: Hepatic Function; Complete Time: 16:38 pm1 09/25 15:29 Order name: Lipase; Complete Time: 16:38 pm1 09/25 15:31 Order name: Basic Metabolic Panel; Complete Time: 16:38 EDMS 09/25 15:31 Order name: CBC with Automated Diff; Complete Time: 16:38 EDMS 09/25 15:31 Order name: Creatinine (Radiology Only); Complete Time: 16:38 EDMS 09/25 16:33 Order name: Urine Dipstick--Ancillary (enter results); Complete Time: 20:43 bd 09/25 18:59 Order name: CT Stone Protocol; Complete Time: 19:49 pm1 09/25 15:16 Order name: Urine Dipstick-Ancillary (obtain specimen); Complete Time: 15:55 snw 09/25 15:29 Order name: IV Saline Lock; Complete Time: 15:55 pm1 09/25 15:29 Order name: Labs collected and sent; Complete Time: 15:55 pm1 Administered Medications: 18:03 Drug: Zofran 4 mg Route: IVP; Site: right antecubital; ph 20:02 Follow up: Response: No adverse reaction; Nausea is decreased ph 18:04 Drug: morphine 4 mg Route: IVP; Site: right antecubital; ph 18:30 Follow up: Response: No adverse reaction; Pain is decreased ph 20:50 Drug: Flexeril 10 mg Route: PO; ea 21:38 Follow up: Response: No adverse reaction; Pain is decreased ea 20:55 Drug: NS 0.9% 1000 ml Route: IV; Rate: 1000 ml; Site: right antecubital; ea 22:20 Follow up: Response: No adverse reaction; IV Status: Completed infusion; IV Intake: ea 600ml Point of Care Testing: Blood Glucose: 19:38 Blood Glucose: 198 mg/dL; jd3 Ranges: Critical Glucose Levels:Adult <50 mg/dl or >400 mg/dl <40 mg/dl or >180 mg/dl Disposition: 09/25/18 20:44 Discharged to Home. Impression: Unspecified abdominal pain, Low back pain. - Condition is Stable. - Discharge Instructions: Abdominal Pain, Adult, Back Pain, Adult. - Prescriptions for Tylenol- Codeine #3 300-30 mg Oral Tablet - take 2 tablets by ORAL route every 6 hours As needed; 20 tablet. Cyclobenzaprine 10 mg Oral Tablet - take 1 tablet by ORAL route every 8 hours As needed; 30 tablet. - Medication Reconciliation Form, Thank You Letter, Antibiotic Education, Prescription Opioid Use form. - Follow up: Emergency Department; When: As needed; Reason: Worsening of condition. Follow up: Private Physician; When: 2 - 3 days; Reason: Recheck today's complaints, Continuance of care, Re-evaluation by your physician. - Problem is new. - Symptoms have improved. Addendum: 09/27/2018 02:30 Co-signature as Attending Physician, Remberto Carr MD. g s Signatures: Dispatcher [employer] EDMS Nirali Busch, NYLA-C [employer] MEMBER-[employer] Pako Lerner, RN RN la1 Mena Vásquez, RN RN Tirso Victoria, FAIRGROUND OPERATOR FAIRGROUND OPERATOR pm1 Ani Novak RN Remberto Barker ea, MD MD Corrections: (The following items were deleted from the chart) 09/25 22:26 20:44 09/25/2018 20:44 Discharged to Home. Impression: Unspecified abdominal pain; Low ea back pain. Condition is Stable. Forms are Medication Reconciliation Form, Thank You Letter, Antibiotic Education, Prescription Opioid Use. Follow up: Emergency Department; When: As needed; Reason: Worsening of condition. Follow up: Private Physician; When: 2 - 3 days; Reason: Recheck today's complaints, Continuance of care, Re-evaluation by your physician. Problem is new. Symptoms have improved. pm1
--- NOTE | 2018-09-25 20:45 | ER ---
Nurse's Notes [facility] Name: Caryl Watt Age: 68 yrs Sex: Female : 1950 Arrival Date: 09/25/2018 Time: 14:52 Bed 7 Private MD: Diagnosis: Unspecified abdominal pain;Low back pain Presentation: 09/25 15:07 Presenting complaint: Patient states: Right flank pain intermittent for one week, worse la1 the last two days with nausea. Transition of care: patient was not received from another setting of care. Onset of symptoms was September 25, 2018. Risk Assessment: Do you want to hurt yourself or someone else? Patient reports no desire to harm self or others. Initial Sepsis Screen: Does the patient meet any 2 criteria? No. Patient's initial sepsis screen is negative. Does the patient have a suspected source of infection? No. Patient's initial sepsis screen is negative. Care prior to arrival: None. 15:07 Method Of Arrival: Ambulatory la1 15:07 Acuity: KAYLENE 3 la1 Historical: - Allergies: 15:07 NKA; la1 - PMHx: 15:07 Diabetes - IDDM; Hyperlipidemia; Hypertension; Anxiety; la1 - Immunization history:: Adult Immunizations up to date. - Social history:: Smoking status: Patient/guardian denies using tobacco. - Ebola Screening: : No symptoms or risks identified at this time. Screenin:59 Abuse screen: Denies threats or abuse. Denies injuries from another. Nutritional ph screening: No deficits noted. Tuberculosis screening: No symptoms or risk factors identified. Fall Risk None identified. Assessment: 15:30 General: Appears in no apparent distress. uncomfortable, obese, well groomed, Behavior ph is calm, cooperative, appropriate for age, Denies fever. Pain: Complains of pain in epigastric area and right upper quadrant Pain radiates to back. Neuro: Level of Consciousness is awake, alert, obeys commands, Oriented to person, place, time, situation. Cardiovascular: Capillary refill < 3 seconds in bilateral fingers Patient's skin is warm and dry. Respiratory: Airway is patent Respiratory effort is even, unlabored. GI: Abdomen is non-distended, obese, Bowel sounds present X 4 quads. Abd is soft X 4 quads Abdomen is tender to palpation in epigastric area and right upper quadrant Reports upper abdominal pain, epigastric pain, nausea, Patient currently denies diarrhea, vomiting. Derm: Skin is intact, is healthy with good turgor, Skin is pink, warm \T\ dry. Musculoskeletal: Circulation, motion, and sensation intact. Range of motion: intact in all extremities. 16:30 Reassessment: Patient appears in no apparent distress at this time. Patient and/or ph family updated on plan of care and expected duration. Pain level reassessed. Patient is alert, oriented x 3, equal unlabored respirations, skin warm/dry/pink. 17:30 Reassessment: Patient appears in no apparent distress at this time. Patient and/or ph family updated on plan of care and expected duration. Pain level reassessed. Patient is alert, oriented x 3, equal unlabored respirations, skin warm/dry/pink. 18:30 Reassessment: Patient appears in no apparent distress at this time. Patient and/or ph family updated on plan of care and expected duration. Pain level reassessed. Patient is alert, oriented x 3, equal unlabored respirations, skin warm/dry/pink. 19:00 General: Appears in no apparent distress. Behavior is calm, cooperative, appropriate ea for age. Pain: Denies pain. Neuro: Level of Consciousness is awake, alert, obeys commands, Oriented to person, place, time, situation. Cardiovascular: Patient's skin is warm and dry. Respiratory: Airway is patent Respiratory effort is even, unlabored, Respiratory pattern is regular, symmetrical. GI: Abdomen is non-distended, Bowel sounds present X 4 quads. Abd is soft and non tender X 4 quads. Derm: Skin is pink, warm \T\ dry. 21:30 Reassessment: Patient and/or family updated on plan of care and expected duration. Pain ea level reassessed. Patient is alert, oriented x 3, equal unlabored respirations, skin warm/dry/pink. Patient states symptoms have improved. 22:22 Reassessment: Patient and/or family updated on plan of care and expected duration. Pain ea level reassessed. Patient is alert, oriented x 3, equal unlabored respirations, skin warm/dry/pink. Discharge instruction given to patient, verbalized the understanding of instruction. Pt left ED ambulatory with friend, tolerating well Patient states feeling better. Patient states symptoms have improved. Vital Signs: 15:09 BP 116 / 67; Pulse 71; Resp 16; Temp 97.5(TE); Pulse Ox 98% on R/A; Weight 86.18 kg; la1 Height 5 ft. 10 in. (177.80 cm); Pain 8/10; 16:00 BP 116 / 66; Pulse 68; Resp 18; Pulse Ox 99% on R/A; ph 17:00 BP 127 / 72; Pulse 72; Resp 16; Pulse Ox 98% on R/A; ph 18:00 BP 138 / 67; Pulse 75; Resp 18; Pulse Ox 97% on R/A; ph 19:00 BP 127 / 63; Pulse 61; Resp 18; Pulse Ox 98% on R/A; ph 20:00 BP 130 / 63; Pulse 63; Resp 18; Pulse Ox 98% ; ea 21:30 BP 121 / 55; Pulse 61; Resp 18; Temp 97.6; Pulse Ox 97% on R/A; ea 22:00 BP 112 / 72; Pulse 67; Resp 18; Pulse Ox 97% on R/A; ea 15:09 Body Mass Index 27.26 (86.18 kg, 177.80 cm) la1 ED Course: 14:52 Patient arrived in ED. as 15:07 Arm band placed on left wrist. la1 15:08 Triage completed. la1 15:25 Tirso Vicotria NP is PHCP. pm1 15:25 Remberto Carr MD is Attending Physician. pm1 15:36 Mena Vásquez, RN is Primary Nurse. ph 15:54 Initial lab(s) drawn, by me, sent to lab. Inserted saline lock: 22 gauge in right lt1 antecubital area, using aseptic technique. 15:55 Urine Culture Sent. lt1 15:55 Urine Microscopic Only Sent. lt1 19:21 CT completed. Patient tolerated procedure well. Patient moved back from CT. kw1 19:23 CT Stone Protocol In Process Unspecified. EDMS 19:59 Patient has correct armband on for positive identification. Placed in gown. Bed in low ph position. Call light in reach. Side rails up X 1. Pulse ox on. NIBP on. Door closed. Noise minimized. Warm blanket given. Pillow given. Head of bed elevated. 19:59 No provider procedures requiring assistance completed. ph 22:23 IV discontinued, intact, bleeding controlled, No redness/swelling at site. Pressure ea dressing applied. Administered Medications: 18:03 Drug: Zofran 4 mg Route: IVP; Site: right antecubital; ph 20:02 Follow up: Response: No adverse reaction; Nausea is decreased ph 18:04 Drug: morphine 4 mg Route: IVP; Site: right antecubital; ph 18:30 Follow up: Response: No adverse reaction; Pain is decreased ph 20:50 Drug: Flexeril 10 mg Route: PO; ea 21:38 Follow up: Response: No adverse reaction; Pain is decreased ea 20:55 Drug: NS 0.9% 1000 ml Route: IV; Rate: 1000 ml; Site: right antecubital; ea 22:20 Follow up: Response: No adverse reaction; IV Status: Completed infusion; IV Intake: ea 600ml Point of Care Testing: Blood Glucose: 19:38 Blood Glucose: 198 mg/dL; jd3 Ranges: Intake: 22:20 IV: 600ml; Total: 600ml. ea Outcome: 20:44 Discharge ordered by MD. pm1 22:23 Discharged to home ambulatory, with significant other. ea 22:23 Condition: improved 22:23 Discharge instructions given to patient, Instructed on discharge instructions, follow up and referral plans. medication usage, Demonstrated understanding of instructions, follow-up care, medications, Prescriptions given X 2. 22:26 Patient left the ED. ea Signatures: Dispatcher [employer] EDMS Samantha Neff Lee, RN RN la1 Mean Vásquez RN RN ph Marinas, Patrick, NP COMPENSATION EXPERT pm1 Ani Novak RN RN ea Davies, Jonathon, RN RN jd3 Wilhelm, Kimberly [facility]
[2018-09-25] MEDS ORDERED: NA CHLORIDE 0.9% 1,000 ML ONE (21:00)
[2018-09-25] MEDS ORDERED: CYCLOBENZAPRINE 10 MG TAB ONE (21:00)
== END 2018-09-25 22:26 | disposition home or self-care (01) ==
LOC: ER 14:46
DX: R10.11 Right upper quadrant pain (principal); M54.5 Low back pain; I10 Essential (primary) hypertension
CPT/HCPCS: 87088; 85025; 87086; 80048; 36415; 82962; 80076; 83690; 76377; 74176; J7030; J2405; 81003; 81015; 96361; 96374; 96375; 99284

== ENCOUNTER 2022-04-22 10:47 | Emergency (ER) | payer MEDICARE, OTHER ==
--- OUTSIDE RECORDS SUMMARY | 2022-04-22 10:52 | XMS REPORT | Continuity of Care Document ---
:1950 Author Organization [facility] t Address [address] [place] [address] Care Team Providers Name Role Phone Jess Bedoya Attending Clinician Aureliano_Jamila Attending Clinician Unavailable BENNY Attending Clinician Unavailable Shield Attending Clinician Unavailable Aureliano_Jamila Admitting Clinician Unavailable BENNY Admitting Clinician Unavailable Shield Admitting Clinician Unavailable Payers Payer Name Policy Type Policy Number Effective Date Expiration Date [facility] [employer] [id number] 2021 (MEDICARE 00:00:00 REPLACEMENT HMO) UHC - MEDICARE [id number] COMPLETE (MEDICARE REPLACEMENT HMO) WELLCARE (MEDICARE [id number] 2019 REPLACEMENT/ADVANTA 00:00:00 GE - PPO) [facility] [id number] MEDICARE SOLUTIONS - MEDICARE COMPLETE (MEDICARE REPLACEMENT PPO) Problems Condition Condition Condition Status Onset Resolution Last Treating Co mments Source Name Details Category Date Date Treatment Clinician Date Parental Parental Problem Active [place] anxiety Anxiety 8-28 da [facility] Type 2 Type 2 Problem Active [place] diabetes Diabetes 6- da mellitus Mellitus 00:00: [facility] Hyperlipid Hyperlipid Problem Active [facility] emia emia 6- da 00:00: [facility] Hypertensi Hypertensi Problem Active [facility] [place] ve ve 6- da disorder Disorder 00:00: [facility] Chronic Chronic Problem Active [place] kidney Kidney 6- da disease Disease 00:00: [facility] Hyperglyce Hyperglyce Problem Active 2018-0 M [place] isabela due to isabela Due to 6- da type 2 Type 2 00:00: [facility] diabetes Diabetes 00 al mellitus Mellitus Health Outreac h Program Allergies, Adverse Reactions, Alerts This patient has no known allergies or adverse reactions. Social History Smoking Status Start Date Stop Date Source Never Smoker [facility] Former Smoker [facility] Guer[facility] Out[facility] Medications Ordered Filled Start Stop Current Ordering Indication Dosage Frequency Signature Comments Components Source Medication Medication Date Date Medication? Clinician (SIG) Name Name amoxicillin amoxicillin No 1 Q12H amoxicilli [place] 875 mg 875 mg n 875 mg da tablet Take tablet Take tablet Medical 1 tablet 1 tablet Take 1 Group every 12 every 12 tablet hours by hours by every 12 oral route oral route hours by for 7 days. for 7 days. oral route for 7 days. Jardiance Jardiance No Jardiance [facility] Levemir Levemir No Levemir [place] [facility] FlexTouch FlexTouch FlexTouch da U-100 U-100 U-100 Medical Insulin 100 Insulin 100 Insulin Group unit/mL (3 unit/mL (3 100 mL) mL) unit/mL (3 subcutaneou subcutaneou mL) s pen s pen subcutaneo Inject by Inject by us pen subcutaneou subcutaneou Inject by s route. s route. subcutaneo us route. fluconazole fluconazole No fluconazol [place] 150 mg 150 mg e 150 mg da tablet take tablet take tablet [facility] one tab one tab take one al every 72 every 72 tab every He alth hrs x 3 hrs x 3 72 hrs x 3 Out reac h Program fluticasone fluticasone No fluticason [place] propionate propionate e da 50 50 propionate [facility] mcg/actuati mcg/actuati 50 a l on nasal on nasal mcg/actuat H ealth spray,suspe spray,suspe ion nasal Outreac nsion SPRAY nsion SPRAY spray,susp h 2 SPRAYS 2 SPRAYS ension Progr am (50 - 100 (50 - 100 SPRAY 2 MCG) IN MCG) IN SPRAYS (50 EACH EACH - 100 MCG) NOSTRIL BY NOSTRIL BY IN EACH INTRANASAL INTRANASAL NOSTRIL BY ROUTEONCE ROUTEONCE INTRANASAL DAILY DAILY ROUTEONCE NEEDED NEEDED DAILY NEEDED gabapentin gabapentin No 1capsul Q1D gabapentin [place] 100 mg 100 mg e(s) 100 mg da capsule capsule capsule [facility] Take 1 Take 1 Take 1 al capsule capsule capsule Health every day every day every day Outreac by oral by oral by oral h route at route at route at Pro gram bedtime. bedtime. bedtime. Jardiance Jardiance No Jardiance [place] 25 mg 25 mg 25 mg da tablet TAKE tablet TAKE tablet [facility] 1 TABLET BY 1 TABLET BY TAKE 1 al MOUTH EVERY MOUTH EVERY TABLET BY Health DAY DAY MOUTH Outreac EVERY DAY h Program Levemir Levemir No Levemir [place] FlexTouch FlexTouch FlexTouch da U-100 U-100 U-100 [facility] Insulin 100 Insulin 100 Insulin al unit/mL (3 unit/mL (3 100 Hea lth mL) mL) unit/mL (3 Outreac subcutaneou subcutaneou mL) h s pen s pen subcutaneo Program INJECT 75 INJECT 75 us pen UNIT(S) UNIT(S) INJECT 75 EVERY DAY EVERY DAY UNIT(S) BY BY EVERY DAY SUBCUTANEOU SUBCUTANEOU BY S ROUTE. S ROUTE. SUBCUTANEO US ROUTE. lisinopril lisinopril No lisinopril [place] 10 mg 10 mg 10 mg da tablet TAKE tablet TAKE tablet [facility] 1 TABLET(S) 1 TABLET(S) TAKE 1 al EVERY DAY EVERY DAY TABLET(S) Health BY ORAL BY ORAL EVERY DAY Outr eac ROUTE. ROUTE. BY ORAL h ROUTE. Program milk milk No 1 Q1D milk [place] thistle 175 thistle 175 thistle da mg tablet mg tablet 175 mg Epi scop Take 1 Take 1 tablet al tablet tablet Take 1 Health every day every day tablet Out reac by oral by oral every day h route. route. by oral Program route. Novolog Novolog No Novolog [place] Flexpen Flexpen Flexpen da U-100 U-100 U-100 [facility] Insulin Insulin Insulin al aspart 100 aspart 100 aspart 100 Health unit/mL (3 unit/mL (3 unit/mL (3 Outreac mL) mL) mL) h subcutaneou subcutaneou subcutaneo Program s USE s USE us USE NOVOLOG PER NOVOLOG PER NOVOLOG SLIDING SLIDING PER SCALE SCALE SLIDING PROTOCOL. PROTOCOL. SCALE PROTOCOL. One-A-Day One-A-Day No One-A-Day [place] Women's 50 Women's 50 Women's 50 da Plus take 1 Plus take 1 Plus take [facility] tablet by tablet by 1 tablet a l mouth once mouth once by mouth Health daily daily once daily Outreac h Program atorvastati atorvastati No atorvastat [place] n 10 mg n 10 mg in 10 mg da tablet TAKE tablet TAKE tablet [facility] 1 TABLET(S) 1 TABLET(S) TAKE 1 al EVERY DAY EVERY DAY TABLET(S) Health BY ORAL BY ORAL EVERY DAY Outr eac ROUTE. ROUTE. BY ORAL h ROUTE. Program Bydureon Bydureon No 2mg Q1W Bydureon [place] BCise 2 BCise 2 BCise 2 da mg/0.85 mL mg/0.85 mL mg/0.85 mL [facility] subcutaneou subcutaneou subcutaneo al s s us Health auto-inject auto-inject auto-injec Outreac or Inject 2 or Inject 2 tor Inject h mg every mg every 2 mg every P rogram week by week by week by subcutaneou subcutaneou subcutaneo s route. s route. us route. Immunizations Ordered Immunization Filled Immunization Date Status Commen ts Source Name Name pneumococcal pneumococcal 2019-07-12 Completed [facility] polysaccharide PPV23 polysaccharide PPV23 12:56:41 [facility] influenza, trivalent, influenza, 2019-02-06 Completed [place] adjuvanted trivalent, 15:09:00 [facility] adjuvanted [facility] pneumococcal pneumococcal 2017-09-30 Completed [facility] conjugate PCV 13 conjugate PCV 13 15:42:41 [facility]re[facility] Tdap Tdap 2017-09-30 Completed [facility] 15:39:39 [facility] influenza, influenza, 2017-02-03 Completed [facility] unspecified unspecified 00:00:00 [facility] formulation formulation Health Outre ach Program influenza, influenza, 2016-02-11 Completed [facility] unspecified unspecified 00:00:00 [facility] formulation formulation Health Outre ach Program Vital Signs Vital Name Observation Time Observation Value Comments Source BP Diastolic 2020-09-03 00:00:00 64 mm[Hg] [place] [facility] Height 2020-09-03 00:00:00 59 [in_i] [place] [facility] BMI (Body Mass 2020-09-03 00:00:00 36.3 kg/m2 [place] 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) [facility] Outreach Program BP Systolic 2020-09-03 00:00:00 112 mm[Hg] [place] [facility] Body Weight 2020-09-03 00:00:00 2873.6 [oz_av] [facility] [employer] equipment preservation inspector [facility] BP Diastolic 2019-12-25 00:00:00 68 mm[Hg] [place] [facility] Height 2019-12-25 00:00:00 59 [in_i] [place] [facility] BMI (Body Mass 2019-12-25 00:00:00 37 kg/m2 [place] 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) [facility] Out[facility] Program BP Systolic 2019-12-25 00:00:00 122 mm[Hg] [place] [facility] Body Weight 2019-12-25 00:00:00 2928 [oz_av] [place] [facility] BP Diastolic 2019-07-13 00:00:00 81 mm[Hg] [place] [facility] Height 2019-07-13 00:00:00 59 [in_i] [place] [facility] BMI (Body Mass 2019-07-13 00:00:00 38.1 kg/m2 [place] 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) [facility] Outreach Program BP Systolic 2019-07-13 00:00:00 162 mm[Hg] [place] [facility] Body Weight 2019-07-13 00:00:00 188.4 [lb_av] [place] [facility] BP Diastolic 2019-07-12 00:00:00 68 mm[Hg] [place] [facility] Height 2019-07-12 00:00:00 59 [in_i] [place] [facility] BMI (Body Mass 2019-07-12 00:00:00 37.7 kg/m2 [place] 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) [facility] Out[facility] Program BP Systolic 2019-07-12 00:00:00 122 mm[Hg] [facility] Body Weight 2019-07-12 00:00:00 186.8 [lb_av] [place] [facility] BP Diastolic 2019-05-17 00:00:00 74 mm[Hg] [facility] Height 2019-05-17 00:00:00 59 [in_i] [place] [facility] BMI (Body Mass 2019-05-17 00:00:00 38.6 kg/m2 [place] 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) [facility] Out[facility] Program BP Systolic 2019-05-17 00:00:00 138 mm[Hg] [facility] Body Weight 2019-05-17 00:00:00 191.2 [lb_av] [place] [facility] BP Diastolic 2019-03-20 00:00:00 66 mm[Hg] [facility] Height 2019-03-20 00:00:00 59 [in_i] [facility] BMI (Body Mass 2019-03-20 00:00:00 37.4 kg/m2 [place] 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) [facility] Outreach Program BP Systolic 2019-03-20 00:00:00 108 mm[Hg] [facility] Body Weight 2019-03-20 00:00:00 185.1 [lb_av] [place] [facility] BP Diastolic 2019-02-06 00:00:00 62 mm[Hg] [facility] Height 2019-02-06 00:00:00 59 [in_i] [facility] BMI (Body Mass 2019-02-06 00:00:00 38.6 kg/m2 [place] 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) [facility] Outreach Program BP Systolic 2019-02-06 00:00:00 116 mm[Hg] [place] [facility] Body Weight 2019-02-06 00:00:00 191 [lb_av] [place] [facility] BP Diastolic 2018-12-05 00:00:00 80 mm[Hg] [place] [facility] Height 2018-12-05 00:00:00 59 [in_i] [place] [facility] BMI (Body Mass 2018-12-05 00:00:00 38.1 kg/m2 [place] 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) [facility] Outreach Program BP Systolic 2018-12-05 00:00:00 138 mm[Hg] [place] [facility] Body Weight 2018-12-05 00:00:00 188.8 [lb_av] [place] BP Diastolic 2018-06-09 00:00:00 71 mm[Hg] [facility] Height 2018-06-09 00:00:00 59 [in_i] [facility] BMI (Body Mass 2018-06-09 00:00:00 38.4 kg/m2 [facility] marine equipment preservation inspector Medical Index) Group BP Systolic 2018-06-09 00:00:00 138 mm[Hg] [facility] Body Weight 2018-06-09 00:00:00 3040 [oz_av] [facility] Procedures Procedure Date / Time Performing Clinician Source Performed MAMMO, screening, 2019-07-12 00:00:00 [facility] digital, bilateral Health Outrea ch Program ELECTROCARDIOGRAM, 2019-07-12 00:00:00 [facility] COMPLETE [facility] Outreach Program DXA BONE DENSITY, AXIAL 2019-07-12 00:00:00 Bhatia jp [facility] Screening for Malignant 2018-06-28 00:00:00 Bhatia jp [facility] Neoplasm of Colon Health Outreac h Program Partial Hysterectomy [facility] Plan of Care Planned Activity Planned Date Details Comments Source Future Scheduled Test 2020-10-03 HbA1c (hemoglobin [place] [facility] 00:00:00 A1c), blood [code Health Out reach = HbA1c Program (hemoglobin A1c), blood] Future Scheduled Test 2020-10-03 CBC w/ diff [code [facility] [place] [facility] 00:00:00 = CBC w/ diff] Health Outrea ch Program Future Scheduled Test 2020-10-03 CMP, serum or [place] [facility] 00:00:00 plasma [code = Health Outrea ch CMP, serum or Program plasma] Future Scheduled Test 2020-10-03 lipid panel, blood [facility] 00:00:00 [code = lipid Health Outreac h panel, blood] Program Future Scheduled Test 2020-10-03 microalbumin/creat [facility] 00:00:00 inine, mass ratio, Health Ou [place] urine [code = Program microalbumin/creat inine, mass ratio, urine] Future Scheduled Test 2020-10-03 TSH, [place] marine equipment preservation inspector Christian 00:00:00 ultra-sensitive, Health Outr each serum [code = TSH, Program ultra-sensitive, serum] Diagnostic Test 2020-09-03 urinalysis, [facility] Ep iscopal Pending 00:00:00 dipstick [code = Health Outr each urinalysis, Program dipstick] Instructions [facility] Encounters Start End Encounter Admission Attending Care Care Encounter Source Date/Time Date/Time Type Type Clinicians Facility Department ID 2022-02-27 2022-02-27 DAI Jess [id number] [facility] [id number] [facility] 22:00:00 23:00:00 [place] [id number] [facility] [id number] 2022-02-17 2022-02-17 Outpatient Tum[place]_A [facility] [id number] [facility] 00:00:00 00:00:00 [id number] Medica l Group 2022-01-29 2022-01-29 Outpatient [place]elson_A [facility] [id number] [facility] 00:00:00 00:00:00 [id number] Medica l Group 2021-10-24 2021-10-24 Outpatient [facility] [id number] [facility] 03:54:00 03:54:00 [id number] Medica l Group 2021-08-27 2021-08-27 Outpatient [facility] [id number] [facility] 12:00:00 12:00:00 [id number] Medica l Group 2021-03-26 2021-03-26 Outpatient [facility] 100 [id number] [place] 12:00:00 12:00:00 HANA [id number] [facility] 2021-03-17 2021-03-17 Outpatient AM[facility]EN_[facility] 100 186 [place] 12:03:00 12:03:00 HANA [id number] [facility] 2021-03-10 2021-03-10 Outpatient AM[facility]EN_[facility] 100 186- [place] 11:10:00 11:10:00 HANA [id number] [facility] 2021-01-28 2021-01-28 Outpatient AM[facility] 100 [place] 09:07:00 09:07:00 HANA [id number] [facility] 2021-01-27 2021-01-27 Outpatient AM[facility]EN_[facility] 100 [place] 04:35:00 04:35:00 HANA [id number] [facility] 2021-01-16 2021-01-16 Outpatient AMBREEN_[facility] ME[facility]OP 100 [place] 11:22:00 11:22:00 HANA [id number] [facility] 2020-12-19 2020-12-19 Outpatient AM[facility]EN_[facility] 100 [place] 09:14:00 09:14:00 HANA [id number] [facility] 2020-11-14 2020-11-14 Outpatient AM[facility] 100 [place] 02:58:00 02:58:00 HANA [id number] [facility] 2020-09-05 2020-09-05 Outpatient AM[facility] 100 [place] 10:55:00 10:55:00 HANA [id number] [facility] 2020-09-04 2020-09-04 Outpatient AMBREEN_[facility] 100 [place] 08:23:00 08:23:00 HANA [id number] [facility] 2020-09-03 2020-09-03 Outpatient AMBREEN_[facility] 100 [place] 04:35:00 04:35:00 HANA [id number] [facility] 2020-09-03 2020-09-03 [facility] [place] - [id number] at[facility]or 00:00:00 00:00:00 Sayda Kelly MD: [id number] [facility] Ep[facility] copyman [place] [address] HOP - [facility] [address] [place] Program [phone] , Ph. 2020-08-27 2020-08-27 Outpatient AMBREEN_[facility] 100 [place] 03:50:00 03:50:00 HANA [id number] [facility] 2020-08-19 2020-08-19 Outpatient AMBREEN_[facility] ME[facility] 100 [place] 03:28:00 03:28:00 HANA [id number] [facility] 2020-08-18 2020-08-18 Outpatient AMBREEN_[facility] LA[facility]OP 100 [place] 08:51:00 08:51:00 HANA [id number] [facility] 2020-08-15 2020-08-15 Outpatient AMBREEN_[facility] ME[facility] 100 186- [place] 02:15:00 02:15:00 KRAIGA [id number] [facility] 2020-08-13 2020-08-13 Outpatient AMBREEN_[facility] 100 186- [place] 11:18:00 11:18:00 HANA [id number] [facility] 2020-07-25 2020-07-25 Outpatient AMBREEN_[facility] 100 186- [place] 05:16:00 05:16:00 HANA [id number] [facility] 2020-07-25 2020-07-25 Outpatient AMBREEN_FAR ME[facility] LA[facility]OP 100 186- [place] 01:02:00 01:02:00 KRAIGA [id number] [facility] 2020-02-28 2020-02-28 Outpatient Shield MMG MMG [id number] [place] 02:48:00 02:48:00 [id number] da Medical Group 2020-01-31 2020-01-31 Outpatient AMBREEN_[facility] 100 [id number] [place] 01:02:00 01:02:00 HANA [id number] [facility] 2019-12-26 2019-12-26 Outpatient AM[facility]EN_[facility] 100 [id number] [place] 11:01:00 11:01:00 HANA [id number] [facility] 2019-12-25 2019-12-25 Outpatient AM[facility]EN_[facility] 100 [id number] [place] 12:00:00 12:00:00 HANA [id number] [facility] 2019-12-25 2019-12-25 Nati [facility] [place] - [id number] M at[place] 00:00:00 00:00:00 Sayda Kelly MD: 1700 [facility] [place] Outre [address] h , Ph. Program 2019-09-30 2019-09-30 Outpatient AMBREEN_[facility] 100 [id number] [place] 11:10:00 11:10:00 HANA [id number] [facility] 2019-09-14 2019-09-14 Outpatient AMBREEN_[facility] 100 [id number] [place] 04:26:00 04:26:00 HANA [id number] [facility] 2019-08-08 2019-08-08 Outpatient AMBREEN_[facility] 100 [id number] [place] 02:35:00 02:35:00 HANA [id number] [facility] 2019-07-13 2019-07-13 Outpatient AMBREEN_[facility] 100 [id number] [place] 03:22:00 03:22:00 HANA [id number] [facility] 2019-07-13 2019-07-13 Palmer Bhagat [facility] [place] - [id number] [place] 00:00:00 00:00:00 Sayda Guan MD: [id number] [facility] Ep[facility] copyman [place] [address] HOP - [facility] [address] Outreac [place], [facility] Program [phone] , Ph. 2019-07-12 2019-07-12 Outpatient AMBREEN_[facility] 100 [id number] [place] 03:26:00 03:26:00 HANA [id number] [facility] 2019-07-12 2019-07-12 [facility] [id number] M at[facility] 00:00:00 00:00:00 Sayda Kelly MD: 1700 [facility] [place], [place] Outre [address] h , Ph. Program 2019-05-17 2019-05-17 Outpatient AMBREEN_[facility] 100 [id number] [place] 05:34:00 05:34:00 HANA [id number] [facility] 2019-05-17 2019-05-17 Nati [facility] [id number] M at[facility] 00:00:00 00:00:00 Sayda Kelly MD: 1700 [facility] [place] [facility], [facility] [phone] h , Ph. Program 2019-04-17 2019-04-17 Outpatient AMBREEN_[facility] 100 [id number] [place] 03:07:00 03:07:00 HANA [id number] [facility] 2019-03-20 2019-03-20 Nati [facility] - [id number] M [facility] 00:00:00 00:00:00 Sayda Kelly MD: 1700 [facility] [place] [facility], [place], [place] Outre [address] h , Ph. Program 2019-02-06 2019-02-06 Nati REAL [place] - [id number] M at[place] 00:00:00 00:00:00 Sayda Kelly MD: [address] [facility] [address] [place] [address], [place], [place] Outre [address] h , Ph. 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 Program (979) -2018-12-06 2018-12-06 Maryma REAL [place] - [id number] [place] 00:00:00 00:00:00 Sayda Carrillo FITTING ROOM CHECKER: [address] [facility] [address] [place] [address], [facility] Outre [address] h , Ph. Program ([id number]) 2018-12-05 2018-12-05 Nati REAL [place] - [id number] M [facility] 00:00:00 00:00:00 Sayda Kelly MD: [address] [facility] [place], [place], [place] Outre [address] h , Ph. 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 Results Test Description Test Time Test Comments Results Result Comments Source Urinalysis macro (dipstick) panel - Urine 2020-09-03 15:57:1 0 Test Item Value Reference Range Interpretation Comme nts Leukocytes (test code = Leukocytes) - Nitrite (test code = Nitrite) - Urobilinogen (test code = Urobilinogen) - Protein (test code = Protein) - pH (test code = pH) 6.0 Blood (test code = Blood) - Specific [place] (test code = Specific [place]) 1.015 Ketone (test code = Ketone) - Bilirubin (test code = Bilirubin) - Glucose (test code = Glucose) 3+ Appearance (test code = Appearance) cloudy Color (test code = Color) yellow [facility] - Serum or [id number] 00:00:00 Test Item Value Reference Range Interpretation Comments Glucose [Mass/volume] in Serum 289 mg/dL 65-99 H or Plasma (test code = 2345-7) Urea nitrogen [Mass/volume] in 31 mg/dL 8-27 H Serum or Plasma (test code = 3094-0) Creatinine [Mass/volume] in 1.07 mg/dL 0.57-1.00 H Serum or Plasma (test code = 2160-0) Glomerular filtration 54 mL/min/1.73 >59 L rate/1.73 sq M.predicted among non-blacks [Volume Rate/Area] in Serum, Plasma or Blood by Creatinine-based formula (CKD-EPI) (test code = 69851-3) Glomerular filtration 62 mL/min/1.73 >59 rate/1.73 sq M.predicted among blacks [Volume Rate/Area] in Serum, Plasma or Blood by Creatinine-based formula (CKD-EPI) (test code = 89159-1) Urea nitrogen/Creatinine [Mass 29 12-28 H Ratio] in Serum or Plasma (test code = 3097-3) Sodium [Moles/volume] in Serum 136 mmol/L 134-144 or Plasma (test code = 2951-2) Potassium [Moles/volume] in 4.6 mmol/L 3.5-5.2 Serum or Plasma (test code = 2823-3) Chloride [Moles/volume] in 100 mmol/L 96-106 Serum or Plasma (test code = 5-0) Carbon dioxide, total 20 mmol/L 20-29 [Moles/volume] in Serum or Plasma (test code = 2027-9) Calcium [Mass/volume] in Serum 9.7 mg/dL 8.7-10.3 or Plasma (test code = 09559-2) Protein [Mass/volume] in Serum 7.0 g/dL 6.0-8.5 or Plasma (test code = 2885-2) Albumin [Mass/volume] in Serum 4.4 g/dL 3.8-4.8 or Plasma (test code = 1751-7) Globulin [Mass/volume] in 2.6 g/dL 1.5-4.5 Serum by calculation (test code = 35630-9) Albumin/Globulin [Mass Ratio] 1.7 1.2-2.2 in Serum or Plasma (test code = 1759-0) Bilirubin.total [Mass/volume] 0.7 mg/dL 0.0-1.2 in Serum or Plasma (test code = 1975-2) Alkaline phosphatase 91 IU/L 39-117 [Enzymatic activity/volume] in Serum or Plasma (test code = 6768-6) Aspartate aminotransferase 18 IU/L 0-40 [Enzymatic activity/volume] in Serum or Plasma (test code = 1920-8) Alanine aminotransferase 12 IU/L 0-32 [Enzymatic activity/volume] in Serum or Plasma (test code = 1742-6) [facility] W Auto Differential panel - Blood 2019-12-06 00:00:00 Test Item Value Reference Range Interpretation Comments Leukocytes [#/volume] in Blood 6.1 x10e3/uL 3.4-10.8 by Automated count (test code = 6690-2) Erythrocytes [#/volume] in 4.84 x10e6/uL 3.77-5.28 Blood by Automated count (test code = 789-8) Hemoglobin [Mass/volume] in 14.1 g/dL 11.1-15.9 Blood (test code = 718-7) Hematocrit [Volume Fraction] of 42.6 % 34.0-46.6 Blood by Automated count (test code = 4544-3) MCV [Entitic volume] by 88 fL 79-97 Automated count (test code = 787-2) MCH [Entitic mass] by Automated 29.1 pg 26.6-33.0 count (test code = 785-6) MCHC [Mass/volume] by Automated 33.1 g/dL 31.5-35.7 count (test code = 786-4) Erythrocyte distribution width 12.9 % 11.7-15.4 [Ratio] by Automated count (test code = 788-0) Platelets [#/volume] in Blood 178 x10e3/uL 150-450 by Automated count (test code = 777-3) Neutrophils/100 leukocytes in 49 % not estab. Blood by Automated count (test code = 770-8) Lymphocytes/100 leukocytes in 41 % not estab. Blood by Automated count (test code = 736-9) Monocytes/100 leukocytes in 6 % not estab. Blood by Automated count (test code = 5905-5) Eosinophils/100 leukocytes in 3 % not estab. Blood by Automated count (test code = 713-8) Basophils/100 leukocytes in 1 % not estab. Blood by Automated count (test code = 706-2) immature cells (test code = row boss immature cells) Neutrophils [#/volume] in Blood 3.0 x10e3/uL 1.4-7.0 by Automated count (test code = 751-8) Lymphocytes [#/volume] in Blood 2.5 x10e3/uL 0.7-3.1 by Automated count (test code = 731-0) Monocytes [#/volume] in Blood 0.4 x10e3/uL 0.1-0.9 by Automated count (test code = 742-7) Eosinophils [#/volume] in Blood 0.2 x10e3/uL 0.0-0.4 by Automated count (test code = 711-2) Basophils [#/volume] in Blood 0.0 x10e3/uL 0.0-0.2 by Automated count (test code = 704-7) Immature granulocytes/100 0 % not estab. leukocytes in Blood by Automated count (test code = 00676-0) Immature granulocytes 0.0 x10e3/uL 0.0-0.1 [#/volume] in Blood by Automated count (test code = 19778-1) Nucleated erythrocytes/100 row boss leukocytes [Ratio] in Blood by Automated count (test code = 39988-5) Morphology [Interpretation] in row boss Blood Narrative (test code = 98750-2) [facility] [id number] [facility]:00 Test Item Value Reference Range Interpretation Comments Cholesterol [Mass/volume] in Serum 207 mg/dL 100-199 H or Plasma (test code = 2093-3) Triglyceride [Mass/volume] in Serum 177 mg/dL 0-149 H or Plasma (test code = 2571-8) Cholesterol in HDL [Mass/volume] in 71 mg/dL >39 Serum or Plasma (test code = 2085-9) Cholesterol in VLDL [Mass/volume] 35 mg/dL 5-40 in Serum or Plasma by calculation (test code = 88473-9) Cholesterol in LDL [Mass/volume] in 101 mg/dL 0-99 H Serum or Plasma by calculation (test code = 32930-4) Laboratory comment [Text] in Report row boss Narrative (test code = 41908-2) Cholesterol.total/Cholesterol.in 2.9 ratio 0.0-4.4 HDL [Mass ratio] in Serum or Plasma (test code = 9830-1) Cholesterol in LDL/Cholesterol in 1.4 ratio 0.0-3.2 HDL [Mass Ratio] in Serum or Plasma (test code = 96094-8) [facility], [id number] 00:00:00 Test Item Value Reference Range Interpretation Comments interpretation (test code = note interpretation) pdf (test code = pdf) not applicable [facility] [id number] 00:00:00 Test Item Value Reference Range Interpretation Comments interpretation (test code = note interpretation) pdf (test code = pdf) . [facility] [id number] 00:00:00 Test Item Value Reference Range Interpretation Comments pdf (test code = pdf) not applicable [facility]/Hemoglobin.total in [id number] 00:00:00 Test Item Value Reference Range Interpretation Comments Hemoglobin A1c/Hemoglobin.total in 13.4 % 4.8-5.6 H Blood (test code = 4548-4) [facility] virus Ab Signal/Cutoff in Serum or Plasma by [id number] 00:00:00 Test Item Value Reference Range Interpretation Comments Hepatitis C virus Ab Signal/Cutoff in <0.1 0.0-0.9 Serum or Plasma by Immunoassay (test code = 25243-7) [facility] 2000 [facility] - Serum or [id number] 00:00:00 Test Item Value Reference Range Interpretation Comments Glucose [Mass/volume] in Serum 202 mg/dL 65-99 H or Plasma (test code = 2345-7) Urea nitrogen [Mass/volume] in 27 mg/dL 8-27 Serum or Plasma (test code = 3094-0) Creatinine [Mass/volume] in 1.06 mg/dL 0.57-1.00 H Serum or Plasma (test code = 2160-0) eGFR if nonafricn AM (test 55 mL/min/1.73 >59 L code = eGFR if nonafricn AM) eGFR if africn AM (test code = 63 mL/min/1.73 >59 eGFR if africn AM) Urea nitrogen/Creatinine [Mass 25 12-28 Ratio] in Serum or Plasma (test code = 3097-3) Sodium [Moles/volume] in Serum 139 mmol/L 134-144 or Plasma (test code = 2951-2) Potassium [Moles/volume] in 5.2 mmol/L 3.5-5.2 Serum or Plasma (test code = 2823-3) Chloride [Moles/volume] in 100 mmol/L 96-106 Serum or Plasma (test code = 2074-0) Carbon dioxide, total 19 mmol/L 20-29 L [Moles/volume] in Serum or Plasma (test code = 2027-) Calcium [Mass/volume] in Serum 9.8 mg/dL 8.7-10.3 or Plasma (test code = 59020-2) Protein [Mass/volume] in Serum 6.9 g/dL 6.0-8.5 or Plasma (test code = 2885-2) Albumin [Mass/volume] in Serum 4.3 g/dL 3.8-4.8 or Plasma (test code = 1751-7) Globulin [Mass/volume] in 2.6 g/dL 1.5-4.5 Serum by calculation (test code = 75501-1) Albumin/Globulin [Mass Ratio] 1.7 1.2-2.2 in Serum or Plasma (test code = 1759-0) Bilirubin.total [Mass/volume] 0.7 mg/dL 0.0-1.2 in Serum or Plasma (test code = 1974-) Alkaline phosphatase 85 IU/L 39-117 [Enzymatic activity/volume] in Serum or Plasma (test code = 6768-6) Aspartate aminotransferase 23 IU/L 0-40 [Enzymatic activity/volume] in Serum or Plasma (test code = 1920-8) Alanine aminotransferase 13 IU/L 0-32 [Enzymatic activity/volume] in Serum or Plasma (test code = 1742-6) [facility] CKD [id number] 00:00:00 Test Item Value Reference Range Interpretation Comments interpretation (test code = note interpretation) pdf image (test code = pdf image) . [facility] 2000 [facility] - Serum or [id number] 00:00:00 Test Item Value Reference Range Interpretation Comments Glucose [Mass/volume] in Serum 202 mg/dL 65-99 H or Plasma (test code = 2345-7) Urea nitrogen [Mass/volume] in 27 mg/dL 8-27 Serum or Plasma (test code = 3094-0) Creatinine [Mass/volume] in 1.06 mg/dL 0.57-1.00 H Serum or Plasma (test code = 2160-0) eGFR if nonafricn AM (test 55 mL/min/1.73 >59 L code = eGFR if nonafricn AM) eGFR if africn AM (test code = 63 mL/min/1.73 >59 eGFR if africn AM) Urea nitrogen/Creatinine [Mass 25 12-28 Ratio] in Serum or Plasma (test code = 3097-3) Sodium [Moles/volume] in Serum 139 mmol/L 134-144 or Plasma (test code = 2951-2) Potassium [Moles/volume] in 5.2 mmol/L 3.5-5.2 Serum or Plasma (test code = 2823-3) Chloride [Moles/volume] in 100 mmol/L 96-106 Serum or Plasma (test code = 2075-0) Carbon dioxide, total 19 mmol/L 20-29 L [Moles/volume] in Serum or Plasma (test code = 2027-9) Calcium [Mass/volume] in Serum 9.8 mg/dL 8.7-10.3 or Plasma (test code = 63154-8) Protein [Mass/volume] in Serum 6.9 g/dL 6.0-8.5 or Plasma (test code = 2885-2) Albumin [Mass/volume] in Serum 4.3 g/dL 3.8-4.8 or Plasma (test code = 1751-7) Globulin [Mass/volume] in 2.6 g/dL 1.5-4.5 Serum by calculation (test code = 00678-1) Albumin/Globulin [Mass Ratio] 1.7 1.2-2.2 in Serum or Plasma (test code = 1759-0) Bilirubin.total [Mass/volume] 0.7 mg/dL 0.0-1.2 in Serum or Plasma (test code = 1974-2) Alkaline phosphatase 85 IU/L 39-117 [Enzymatic activity/volume] in Serum or Plasma (test code = 6768-6) Aspartate aminotransferase 23 IU/L 0-40 [Enzymatic activity/volume] in Serum or Plasma (test code = 1920-8) Alanine aminotransferase 13 IU/L 0-32 [Enzymatic activity/volume] in Serum or Plasma (test code = 1742-6) [facility] [id number] 00:00:00 Test Item Value Reference Range Interpretation Comments interpretation (test code = note interpretation) pdf image (test code = pdf image) . [facility]Com[facility] 2000 panel - Serum or [id number] 00:00:00 Test Item Value Reference Range Interpretation Comments Glucose [Mass/volume] in Serum 109 mg/dL 65-99 H or Plasma (test code = 2345-7) Urea nitrogen [Mass/volume] in 40 mg/dL 8-27 H Serum or Plasma (test code = 3094-0) Creatinine [Mass/volume] in 1.42 mg/dL 0.57-1.00 H Serum or Plasma (test code = 2160-0) eGFR if nonafricn AM (test 39 mL/min/1.73 >59 L code = eGFR if nonafricn AM) eGFR if africn AM (test code = 44 mL/min/1.73 >59 L eGFR if africn AM) Urea nitrogen/Creatinine [Mass 28 12-28 Ratio] in Serum or Plasma (test code = 3097-3) Sodium [Moles/volume] in Serum 140 mmol/L 134-144 or Plasma (test code = 2951-2) Potassium [Moles/volume] in 5.4 mmol/L 3.5-5.2 H Serum or Plasma (test code = 2823-3) Chloride [Moles/volume] in 99 mmol/L 96-106 Serum or Plasma (test code = 2074-0) Carbon dioxide, total 21 mmol/L 20-29 [Moles/volume] in Serum or Plasma (test code = 2027-) Calcium [Mass/volume] in Serum 9.9 mg/dL 8.7-10.3 or Plasma (test code = 83126-2) Protein [Mass/volume] in Serum 7.3 g/dL 6.0-8.5 or Plasma (test code = 2885-2) Albumin [Mass/volume] in Serum 4.4 g/dL 3.6-4.8 or Plasma (test code = 175-7) Globulin [Mass/volume] in 2.9 g/dL 1.5-4.5 Serum by calculation (test code = 91637-0) Albumin/Globulin [Mass Ratio] 1.5 1.2-2.2 in Serum or Plasma (test code = 1759-0) Bilirubin.total [Mass/volume] 0.6 mg/dL 0.0-1.2 in Serum or Plasma (test code = 1974-) Alkaline phosphatase 93 IU/L 39-117 [Enzymatic activity/volume] in Serum or Plasma (test code = 6768-6) Aspartate aminotransferase 25 IU/L 0-40 [Enzymatic activity/volume] in Serum or Plasma (test code = 1920-8) Alanine aminotransferase 17 IU/L 0-32 [Enzymatic activity/volume] in Serum or Plasma (test code = 1742-6) [facility] - [facility] or Plasma 2019-04-19 00:00:00 Test Item Value Reference Range Interpretation Comments Cholesterol [Mass/volume] in Serum 209 mg/dL 100-199 H or Plasma (test code = 2092-3) Triglyceride [Mass/volume] in Serum 91 mg/dL 0-149 or Plasma (test code = 2571-8) Cholesterol in HDL [Mass/volume] in 93 mg/dL >39 Serum or Plasma (test code = 2084-9) Cholesterol in VLDL [Mass/volume] 18 mg/dL 5-40 in Serum or Plasma by calculation (test code = 54138-3) Cholesterol in LDL [Mass/volume] in 98 mg/dL 0-99 Serum or Plasma by calculation (test code = 55259-7) comment: (test code = 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 [facility] [id number] 00:00:00 Test Item Value Reference Range Interpretation Comments pdf image (test code = pdf not applicable image) [facility]Hem[facility] A1c/Hemoglobin.total in [id number] 00:00:00 Test Item Value Reference Range Interpretation Comments Hemoglobin A1c/Hemoglobin.total in 11.2 % 4.8-5.6 H Blood (test code = 4548-4) [facility]Com[facility] 2000 [facility] - Serum or [id number] 00:00:00 Test Item Value Reference Range Interpretation Comments Glucose [Mass/volume] in Serum 109 mg/dL 65-99 H or Plasma (test code = 2345-7) Urea nitrogen [Mass/volume] in 40 mg/dL 8-27 H Serum or Plasma (test code = 3094-0) Creatinine [Mass/volume] in 1.42 mg/dL 0.57-1.00 H Serum or Plasma (test code = 2160-0) eGFR if nonafricn AM (test 39 mL/min/1.73 >59 L code = eGFR if nonafricn AM) eGFR if africn AM (test code = 44 mL/min/1.73 >59 L eGFR if africn AM) Urea nitrogen/Creatinine [Mass 28 12-28 Ratio] in Serum or Plasma (test code = 3097-3) Sodium [Moles/volume] in Serum 140 mmol/L 134-144 or Plasma (test code = 2951-2) Potassium [Moles/volume] in 5.4 mmol/L 3.5-5.2 H Serum or Plasma (test code = 2823-3) Chloride [Moles/volume] in 99 mmol/L 96-106 Serum or Plasma (test code = 2074-0) Carbon dioxide, total 21 mmol/L 20-29 [Moles/volume] in Serum or Plasma (test code = 2027-) Calcium [Mass/volume] in Serum 9.9 mg/dL 8.7-10.3 or Plasma (test code = 71430-9) Protein [Mass/volume] in Serum 7.3 g/dL 6.0-8.5 or Plasma (test code = 2885-2) Albumin [Mass/volume] in Serum 4.4 g/dL 3.6-4.8 or Plasma (test code = 175-7) Globulin [Mass/volume] in 2.9 g/dL 1.5-4.5 Serum by calculation (test code = 86151-6) Albumin/Globulin [Mass Ratio] 1.5 1.2-2.2 in Serum or Plasma (test code = 1759-0) Bilirubin.total [Mass/volume] 0.6 mg/dL 0.0-1.2 in Serum or Plasma (test code = 1974-2) Alkaline phosphatase 93 IU/L 39-117 [Enzymatic activity/volume] in Serum or Plasma (test code = 6768-6) Aspartate aminotransferase 25 IU/L 0-40 [Enzymatic activity/volume] in Serum or Plasma (test code = 1920-8) Alanine aminotransferase 17 IU/L 0-32 [Enzymatic activity/volume] in Serum or Plasma (test code = 1742-6) [facility] 1996 [facility] - [facility] or Plasma 2019-04-19 00:00:00 Test Item Value Reference Range Interpretation Comments Cholesterol [Mass/volume] in Serum 209 mg/dL 100-199 H or Plasma (test code = 2092-3) Triglyceride [Mass/volume] in Serum 91 mg/dL 0-149 or Plasma (test code = 2571-8) Cholesterol in HDL [Mass/volume] in 93 mg/dL >39 Serum or Plasma (test code = 2084-9) Cholesterol in VLDL [Mass/volume] 18 mg/dL 5-40 in Serum or Plasma by calculation (test code = 38482-2) Cholesterol in LDL [Mass/volume] in 98 mg/dL 0-99 Serum or Plasma by calculation (test code = 93369-0) comment: (test code = comment:) 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 [facility] patient [id number] 00:00:00 Test Item Value Reference Range Interpretation Comments pdf image (test code = pdf not applicable image) [facility]/Hemoglobin.total in [id number] 00:00:00 Test Item Value Reference Range Interpretation Comments Hemoglobin A1c/Hemoglobin.total in 11.2 % 4.8-5.6 H Blood (test code = 4548-4) [facility] CKD [id number] 00:00:00 Test Item Value Reference Range Interpretation Comments interpretation (test code = note interpretation) pdf image (test code = pdf image) . [facility] patient [id number] 00:00:00 Test Item Value Reference Range Interpretation Comments pdf image (test code = pdf not applicable image) [facility]Hemoglobin.total in [id number] 00:00:00 Test Item Value Reference Range Interpretation Comments Hemoglobin A1c/Hemoglobin.total in 10.6 % 4.8-5.6 H Blood (test code = 4548-4) [facility] CKD [id number] 00:00:00 Test Item Value Reference Range Interpretation Comments interpretation (test code = note interpretation) pdf image (test code = pdf image) . [facility] patient [id number] 00:00:00 Test Item Value Reference Range Interpretation Comments pdf image (test code = pdf not applicable image) [facility]Hemoglobin.total in [id number] 00:00:00 Test Item Value Reference Range Interpretation Comments Hemoglobin A1c/Hemoglobin.total in 10.6 % 4.8-5.6 H Blood (test code = 4548-4) [facility] [id number] 00:00:00 Test Item Value Reference Range Interpretation Comments interpretation (test code = note interpretation) pdf image (test code = pdf image) . [facility] [id number] 00:00:00 Test Item Value Reference Range Interpretation Comments pdf image (test code = pdf not applicable image) [facility] A[facility]c/Hemoglobin.total in [id number] 00:00:00 Test Item Value Reference Range Interpretation Comments Hemoglobin A1c/Hemoglobin.total in 10.6 % 4.8-5.6 H Blood (test code = 4548-4) [facility]Com[facility] 2000 panel - Serum or [id number] 00:00:00 Test Item Value Reference Range Interpretation Comments Glucose [Mass/volume] in Serum 196 mg/dL 65-99 H or Plasma (test code = 2345-7) Urea nitrogen [Mass/volume] in 27 mg/dL 8-27 Serum or Plasma (test code = 3094-0) Creatinine [Mass/volume] in 1.17 mg/dL 0.57-1.00 H Serum or Plasma (test code = 2160-0) eGFR if nonafricn AM (test 49 mL/min/1.73 >59 L code = eGFR if nonafricn AM) eGFR if africn AM (test code = 56 mL/min/1.73 >59 L eGFR if africn AM) Urea nitrogen/Creatinine [Mass 23 12-28 Ratio] in Serum or Plasma (test code = 3097-3) Sodium [Moles/volume] in Serum 140 mmol/L 134-144 or Plasma (test code = 2951-2) Potassium [Moles/volume] in 4.7 mmol/L 3.5-5.2 Serum or Plasma (test code = 2823-3) Chloride [Moles/volume] in 102 mmol/L 96-106 Serum or Plasma (test code = 2074-0) Carbon dioxide, total 20 mmol/L 20-29 [Moles/volume] in Serum or Plasma (test code = 2027-9) Calcium [Mass/volume] in Serum 9.5 mg/dL 8.7-10.3 or Plasma (test code = 68735-0) Protein [Mass/volume] in Serum 7.1 g/dL 6.0-8.5 or Plasma (test code = 2885-2) Albumin [Mass/volume] in Serum 4.3 g/dL 3.6-4.8 or Plasma (test code = 1751-7) Globulin [Mass/volume] in 2.8 g/dL 1.5-4.5 Serum by calculation (test code = 81569-5) Albumin/Globulin [Mass Ratio] 1.5 1.2-2.2 in Serum or Plasma (test code = 1759-0) Bilirubin.total [Mass/volume] 0.6 mg/dL 0.0-1.2 in Serum or Plasma (test code = 1974-2) Alkaline phosphatase 95 IU/L 39-117 [Enzymatic activity/volume] in Serum or Plasma (test code = 6768-6) Aspartate aminotransferase 24 IU/L 0-40 [Enzymatic activity/volume] in Serum or Plasma (test code = 1920-8) Alanine aminotransferase 16 IU/L 0-32 [Enzymatic activity/volume] in Serum or Plasma (test code = 1742-6) [facility] ProgramMicro[facility]/Creatinine [Mass Ratio] in [id number] 00:00:00 Test Item Value Reference Range Interpretation Comments Creatinine [Mass/volume] in 55.3 mg/dL not estab. Urine (test code = 2161-8) Microalbumin [Mass/volume] in 10.6 ug/mL not estab. Urine (test code = 36594-6) Albumin/Creatinine [Mass 19.2 mg/g creat 0.0-30.0 ratio] in Urine (test code = 9318-7) [facility] ProgramComprehensive metabolic 2000 panel - Serum or [id number] 00:00:00 Test Item Value Reference Range Interpretation Comments Glucose [Mass/volume] in Serum 196 mg/dL 65-99 H or Plasma (test code = 2345-7) Urea nitrogen [Mass/volume] in 27 mg/dL 8-27 Serum or Plasma (test code = 3094-0) Creatinine [Mass/volume] in 1.17 mg/dL 0.57-1.00 H Serum or Plasma (test code = 2160-0) eGFR if nonafricn AM (test 49 mL/min/1.73 >59 L code = eGFR if nonafricn AM) eGFR if africn AM (test code = 56 mL/min/1.73 >59 L eGFR if africn AM) Urea nitrogen/Creatinine [Mass 23 12-28 Ratio] in Serum or Plasma (test code = 3097-3) Sodium [Moles/volume] in Serum 140 mmol/L 134-144 or Plasma (test code = 2951-2) Potassium [Moles/volume] in 4.7 mmol/L 3.5-5.2 Serum or Plasma (test code = 2823-3) Chloride [Moles/volume] in 102 mmol/L 96-106 Serum or Plasma (test code = 5-0) Carbon dioxide, total 20 mmol/L 20-29 [Moles/volume] in Serum or Plasma (test code = 2027-9) Calcium [Mass/volume] in Serum 9.5 mg/dL 8.7-10.3 or Plasma (test code = 75517-4) Protein [Mass/volume] in Serum 7.1 g/dL 6.0-8.5 or Plasma (test code = 2885-2) Albumin [Mass/volume] in Serum 4.3 g/dL 3.6-4.8 or Plasma (test code = 1751-7) Globulin [Mass/volume] in 2.8 g/dL 1.5-4.5 Serum by calculation (test code = 72889-0) Albumin/Globulin [Mass Ratio] 1.5 1.2-2.2 in Serum or Plasma (test code = 1759-0) Bilirubin.total [Mass/volume] 0.6 mg/dL 0.0-1.2 in Serum or Plasma (test code = 1974-2) Alkaline phosphatase 95 IU/L 39-117 [Enzymatic activity/volume] in Serum or Plasma (test code = 6768-6) Aspartate aminotransferase 24 IU/L 0-40 [Enzymatic activity/volume] in Serum or Plasma (test code = 1920-8) Alanine aminotransferase 16 IU/L 0-32 [Enzymatic activity/volume] in Serum or Plasma (test code = 1742-6) [facility] ProgramMicroalbumin/Creatinine [Mass Ratio] in [id number] 00:00:00 Test Item Value Reference Range Interpretation Comments Creatinine [Mass/volume] in 55.3 mg/dL not estab. Urine (test code = 2161-8) Microalbumin [Mass/volume] in 10.6 ug/mL not estab. Urine (test code = 92592-7) Albumin/Creatinine [Mass 19.2 mg/g creat 0.0-30.0 ratio] in Urine (test code = 9318-7) [facility] ProgramComprehensive metabolic 2000 panel - Serum or [id number] 00:00:00 Test Item Value Reference Range Interpretation Comments Glucose [Mass/volume] in Serum 196 mg/dL 65-99 H or Plasma (test code = 2345-7) Urea nitrogen [Mass/volume] in 27 mg/dL 8-27 Serum or Plasma (test code = 3094-0) Creatinine [Mass/volume] in 1.17 mg/dL 0.57-1.00 H Serum or Plasma (test code = 2160-0) eGFR if nonafricn AM (test 49 mL/min/1.73 >59 L code = eGFR if nonafricn AM) eGFR if africn AM (test code = 56 mL/min/1.73 >59 L eGFR if africn AM) Urea nitrogen/Creatinine [Mass 23 12-28 Ratio] in Serum or Plasma (test code = 3097-3) Sodium [Moles/volume] in Serum 140 mmol/L 134-144 or Plasma (test code = 2951-2) Potassium [Moles/volume] in 4.7 mmol/L 3.5-5.2 Serum or Plasma (test code = 2823-3) Chloride [Moles/volume] in 102 mmol/L 96-106 Serum or Plasma (test code = 2075-0) Carbon dioxide, total 20 mmol/L 20-29 [Moles/volume] in Serum or Plasma (test code = 2028-9) Calcium [Mass/volume] in Serum 9.5 mg/dL 8.7-10.3 or Plasma (test code = 87134-5) Protein [Mass/volume] in Serum 7.1 g/dL 6.0-8.5 or Plasma (test code = 2885-2) Albumin [Mass/volume] in Serum 4.3 g/dL 3.6-4.8 or Plasma (test code = 1751-7) Globulin [Mass/volume] in 2.8 g/dL 1.5-4.5 Serum by calculation (test code = 45153-9) Albumin/Globulin [Mass Ratio] 1.5 1.2-2.2 in Serum or Plasma (test code = 1759-0) Bilirubin.total [Mass/volume] 0.6 mg/dL 0.0-1.2 in Serum or Plasma (test code = 1975-2) Alkaline phosphatase 95 IU/L 39-117 [Enzymatic activity/volume] in Serum or Plasma (test code = 6768-6) Aspartate aminotransferase 24 IU/L 0-40 [Enzymatic activity/volume] in Serum or Plasma (test code = 1920-8) Alanine aminotransferase 16 IU/L 0-32 [Enzymatic activity/volume] in Serum or Plasma (test code = 1742-6) [facility] ProgramMicroalbumin/Creatinine [Mass Ratio] in [id number] 00:00:00 Test Item Value Reference Range Interpretation Comments Creatinine [Mass/volume] in 55.3 mg/dL not estab. Urine (test code = 2161-8) Microalbumin [Mass/volume] in 10.6 ug/mL not estab. Urine (test code = 96680-8) Albumin/Creatinine [Mass 19.2 mg/g creat 0.0-30.0 ratio] in Urine (test code = 9318-7) [facility]
[2022-04-22 11:29] LABS: Absolute Lymphocytes (CBC) 1.8 K/uL (0.7-4.9); Hematocrit 39.4 % (36.0-45.0); Lymphocytes % 22.5 % (15.3-44.8); MCV 88.2 fL (80-100); MPV 9.3 fL (7.6-11.3); RBC Red Blood Cell Count 4.46 M/uL (3.86-4.86)
[2022-04-22 11:35] LABS: Protime INR 1.04
[2022-04-22 11:52] LABS: Albumin 3.6 g/dL (3.4-5.0); Bilirubin Total 0.9 mg/dL (0.2-1.0); Magnesium 2.2 mg/dL (1.6-2.4); Potassium 4.4 mmol/L (3.5-5.1); Protein, Total 7.7 g/dL (6.4-8.2); Troponin High Sensitivity 10.1 pg/mL (<58.9)
--- NOTE | 2022-04-22 12:30 | RAD REPORT ---
EXAM DESCRIPTION: CT - Chest For Pe Angio - 04/22/2022 12:17 pm CLINICAL HISTORY: Chest pain COMPARISON: None. TECHNIQUE: Dynamically enhanced axial 3 mm thick images of the chest were obtained during administra tion of <100> mL Isovue 370 IV contrast. Coronal and oblique reconstruction images were generated and reviewed. Exam utilizes a protocol for optimal evaluation of pulmonary arterial tree. Maximum intensity projections 3D imaging was utilized All CT scans are performed using dose optimization technique as appropriate and may include automated exposure control or mA/KV adjustment according to patient size. FINDINGS: A pulmonary embolus is not seen. A thoracic aortic aneurysm is not noted. A pleural effusion is not seen. A pericardial effusion is not seen. A lung consolidation is not present. IMPRESSION: Negative for a pulmonary embolism.
--- NOTE | 2022-04-22 12:31 | RAD REPORT ---
EXAM DESCRIPTION: Lore Single View04/22/2022 11:50 am CLINICAL HISTORY: Chest pain COMPARISON: 2017 FINDINGS: The lungs appear clear of acute infiltrate. The heart is mildly to moderately enlarged IMPRESSION: No acute abnormalities displayed
--- NOTE | 2022-04-22 13:24 | ER ---
Nurse's Notes [facility] Name: Caryl Watt Age: 71 yrs Sex: Female : 1950 Arrival Date: 04/22/2022 Time: 10:50 Bed 20 Private MD: Leonardo Segovia Diagnosis: Pain in right shoulder Presentation: 04/22 10:54 Chief complaint: Patient states: pain to right shoulder x 3 days. Pt states "today I aa5 was in the bathroom and I got a pain radiating down my back to my right leg and when I got up I got a pain on my chest (right side of chest)". Coronavirus screen: At this time, the client does not indicate any symptoms associated with coronavirus-19. Ebola Screen: Patient denies travel to an Ebola-affected area in the 21 days before illness onset. Initial Sepsis Screen: Does the patient meet any 2 criteria? No. Patient's initial sepsis screen is negative. Does the patient have a suspected source of infection? No. Patient's initial sepsis screen is negative. Risk Assessment: Do you want to hurt yourself or someone else? Patient reports no desire to harm self or others. Onset of symptoms was April 2022. 10:54 Method Of Arrival: Ambulatory aa5 10:54 Acuity: KAYLENE 3 aa5 Historical: - Allergies: 10:50 NKA; aa5 - PMHx: 10:50 Anxiety; Diabetes - IDDM; Hyperlipidemia; Hypertension; aa5 - Immunization history:: Adult Immunizations unknown. - Social history:: Smoking status: Patient denies any tobacco usage or history of. Screenin:08 [facility] ED Fall Risk Assessment (Adult) History of falling in the last 3 months, kr3 including since admission No falls in past 3 months (0 pts) Confusion or Disorientation No (0 pts) Intoxicated or Sedated No (0 pts) Impaired Gait No (0 pts) Mobility Assist Device Used No (0 pt) Altered Elimination No (0 pt) Score/Fall Risk Level 0 - 2 = Low Risk. Abuse screen: Denies threats or abuse. Nutritional screening: No deficits noted. Tuberculosis screening: No symptoms or risk factors identified. Assessment: 12:30 General: Appears in no apparent distress. comfortable, Behavior is calm, cooperative, kr3 appropriate for age. Neuro: Level of Consciousness is awake, alert, obeys commands, Oriented to person, place, time, situation. Cardiovascular: Patient's skin is warm and dry. Respiratory: Airway is patent Respiratory effort is even, unlabored, Respiratory pattern is regular, symmetrical. GI: No signs and/or symptoms were reported involving the gastrointestinal system. : No signs and/or symptoms were reported regarding the genitourinary system. EENT: No signs and/or symptoms were reported regarding the EENT system. Derm: No signs and/or symptoms reported regarding the dermatologic system. Musculoskeletal: No signs and/or symptoms reported regarding the musculoskeletal system. 13:38 Reassessment: discharge pending fluid completion. kr3 15:11 Pain: Pain began. kr3 Vital Signs: 10:54 BP 167 / 76; Pulse 62; Resp 16 S; Temp 97.8(TE); Pulse Ox 98% on R/A; Weight 86.18 kg aa5 (R); Height 4 ft. 10 in. (147.32 cm) (R); 11:13 BP 136 / 48 RA; aa5 11:14 BP 137 / 59 LA; aa5 13:28 BP 142 / 64; Pulse 55; Resp 18; Pulse Ox 98% on R/A; kr3 10:54 Body Mass Index 39.71 (86.18 kg, 147.32 cm) aa5 ED Course: 10:50 Patient arrived in ED. am2 10:50 Leonardo Segovia DO is Private Physician. am2 10:50 Arm band placed on. aa5 10:53 Jaylyn Mao FNP-C is [facility]. kb 10:53 Wilberto Bhakta MD is Attending Physician. kb 10:56 Triage completed. aa5 11:05 EKG completed in triage. Results shown to . aa5 11:10 Initial lab(s) drawn, by me, sent to lab. Inserted saline lock: 20 gauge in left aa5 forearm, using aseptic technique. Blood collected. 11:14 EKG done, by ED staff, reviewed by Wilberto Bhakta MD. jw7 11:52 XRAY Chest (1 view) In Process Unspecified. EDMS 12:19 CT Chest For PE Angio In Process Unspecified. EDMS 12:24 Mary Simpson, YAIR is Primary Nurse. kr3 13:15 Bed in low position. Call light in reach. Side rails up X 1. kr3 14:57 No provider procedures requiring assistance completed. IV discontinued, intact, ss bleeding controlled, No redness/swelling at site. Pressure dressing applied. Patient maintains SpO2 saturation greater than 95% on room air. 15:10 Client placed on continuous cardiac and pulse oximetry monitoring. NIBP monitoring kr3 applied. Administered Medications: 13:38 Drug: NS 0.9% 1000 ml Route: IV; Rate: 1000 ml; Site: left antecubital; kr3 15:11 Follow up: Response: No adverse reaction; IV Status: Completed infusion; IV Intake: kr3 1000ml 13:38 Drug: Ketorolac 15 mg Route: IVP; Site: left antecubital; kr3 15:11 Follow up: Response: No adverse reaction kr3 Medication: 15:11 VIS not applicable for this client. kr3 Intake: 15:11 IV: 1000ml; Total: 1000ml. kr3 Outcome: 13:24 Discharge ordered by MD. ramesh 15:09 Discharged to home ambulatory. kr3 15:09 Condition: stable 15:09 Discharge instructions given to patient, Instructed on discharge instructions, follow up and referral plans. Demonstrated understanding of instructions, follow-up care. 15:12 Patient left the ED. kr3 Signatures: Dispatcher [employer] EDJaylyn Kraus, PRIMER POWDER BLENDER WET-C PRIMER POWDER BLENDER WET-Cherelle Hendrix, RN RN aa5 Della Avalos RN RN ss Moreno, Amanda am2 Elvia West jw7 Mary Simpson RN RN kr3 Corrections: (The following items were deleted from the chart) 15:11 15:10 Pain: Pain began kr3 kr3
--- NOTE | 2022-04-22 13:24 | EDPHYS ---
Physician Documentation [facility] Name: Caryl Watt Age: 71 yrs Sex: Female : 1950 Arrival Date: 04/22/2022 Time: 10:50 Bed 20 Private MD: Leonardo Segovia ED Physician Wilberto Bhakta HPI: 04/22 13:53 This 71 yrs old Female presents to ER via Ambulatory with complaints of Chest kb Pain, Back Pain. 13:53 The patient or guardian complains of pain, tenderness. right shoulder and right kb trapezius. Context: The problem was sustained at home, resulted from an unknown reason, The patient reports no decreased range of motion. The patient reports no obvious deformity. Onset: The symptoms/episode began/occurred 3 day(s) ago. Modifying factors: the symptoms are alleviated by nothing. The symptoms are aggravated by movement. Associated signs and symptoms: Pertinent positives: chest pain, severe pain. Severity of symptoms: At their worst the symptoms were moderate, in the emergency department the symptoms are unchanged. Treatment prior to arrival includes: no previous treatment. The patient has not experienced similar symptoms in the past. The patient has not recently seen a physician. Patient reports right shoulder pain that radiates to right chest and right back for 3 days. Historical: - Allergies: 10:50 NKA; aa5 - PMHx: 10:50 Anxiety; Diabetes - IDDM; Hyperlipidemia; Hypertension; aa5 - Immunization history:: Adult Immunizations unknown. - Social history:: Smoking status: Patient denies any tobacco usage or history of. ROS: 13:51 Constitutional: Negative for fever, chills, and weight loss. kb 13:51 Cardiovascular: Positive for chest pain, of the anterior aspect of right upper chest. 13:51 Back: Positive for of the right trapezius and right scapular area. 13:51 MS/extremity: Positive for pain, of the anterior aspect of right shoulder and posterior aspect of right shoulder. 13:51 All other systems are negative. Exam: 13:52 Constitutional: This is a well developed, well nourished patient who is awake, alert, kb and in no acute distress. Head/Face: Normocephalic, atraumatic. ENT: Moist Mucous membranes Cardiovascular: Regular rate and rhythm with a normal S1 and S2. No gallops, murmurs, or rubs. No pulse deficits. Respiratory: Respirations even and unlabored. No increased work of breathing. Talking in full sentences Abdomen/GI: Soft, non-tender. No distention Skin: Warm, dry with normal turgor. Normal color. Neuro: Awake and alert, GCS 15, oriented to person, place, time, and situation. Moves all extremities. Normal gait. Psych: Awake, alert, with orientation to person, place and time. Behavior, mood, and affect are within normal limits. 13:52 Chest/axilla: Palpation: tenderness, that is moderate, of the right clavicle and anterior aspect of right upper chest, that totally reproduces the patient's complaints. 13:52 ECG was reviewed by the Attending Physician. 13:52 Musculoskeletal/extremity: Extremities: grossly normal except: noted in the anterior aspect of right shoulder and posterior aspect of right shoulder: pain, tenderness, ROM: limited active range of motion due to pain, Circulation is intact in all extremities. Sensation intact. Vital Signs: 10:54 BP 167 / 76; Pulse 62; Resp 16 S; Temp 97.8(TE); Pulse Ox 98% on R/A; Weight 86.18 kg aa5 (R); Height 4 ft. 10 in. (147.32 cm) (R); 11:13 BP 136 / 48 RA; aa5 11:14 BP 137 / 59 LA; aa5 13:28 BP 142 / 64; Pulse 55; Resp 18; Pulse Ox 98% on R/A; kr3 10:54 Body Mass Index 39.71 (86.18 kg, 147.32 cm) aa5 MDM: 10:53 Patient medically screened. kb 13:51 Data reviewed: vital signs, nurses notes. Consideration of Admission/Observation kb Escalation of care including admission/observation considered. 13:54 Differential diagnosis: Anterior dislocation without fracture, Posterior dislocation kb without fracture, tendonitis, KS, PE. Counseling: I had a detailed discussion with the patient and/or guardian regarding: the historical points, exam findings, and any diagnostic results supporting the discharge/admit diagnosis, lab results, radiology results, the need for outpatient follow up, a family practitioner, to return to the emergency department if symptoms worsen or persist or if there are any questions or concerns that arise at home. 04/22 10:53 Order name: CBC with Diff; Complete Time: 11:31 kb 04/22 10:53 Order name: D-Dimer; Complete Time: 11:42 kb 04/22 10:53 Order name: Magnesium; Complete Time: 11:59 kb 04/22 10:53 Order name: NT PRO-BNP; Complete Time: 11:59 kb 04/22 10:53 Order name: PT-INR; Complete Time: 11:42 kb 04/22 10:53 Order name: Troponin HS; Complete Time: 11:59 kb 04/22 10:53 Order name: XRAY Chest (1 view); Complete Time: 12:37 kb 04/22 10:53 Order name: EKG; Complete Time: 10:54 kb 04/22 10:53 Order name: Cardiac monitoring; Complete Time: 12:32 kb 04/22 10:53 Order name: EKG - Nurse/Tech; Complete Time: 11:07 kb 04/22 10:53 Order name: CMP; Complete Time: 11:59 kb 04/22 11:43 Order name: CT Chest For PE Angio; Complete Time: 12:37 kb 04/22 10:53 Order name: IV Saline Lock; Complete Time: 11:14 kb 04/22 10:53 Order name: Labs collected and sent; Complete Time: 11:14 kb 04/22 10:53 Order name: O2 Per Protocol; Complete Time: 12:32 kb 04/22 10:53 Order name: O2 Sat Monitoring; Complete Time: 12:32 kb 04/22 10:53 Order name: Bilateral blood pressure; Complete Time: 11:14 kb EC:52 Rate is 64 beats/min. Rhythm is regular. QRS [place] is Normal. MS interval is prolonged kb at 230 msec. QRS interval is normal at 84 msec. QT interval is normal at 435 msec. Clinical impression: 1st degree heart block. Administered Medications: 13:38 Drug: NS 0.9% 1000 ml Route: IV; Rate: 1000 ml; Site: left antecubital; kr3 15:11 Follow up: Response: No adverse reaction; IV Status: Completed infusion; IV Intake: kr3 1000ml 13:38 Drug: Ketorolac 15 mg Route: IVP; Site: left antecubital; kr3 15:11 Follow up: Response: No adverse reaction kr3 Disposition Summary: 04/22/22 13:24 Discharge Ordered Location: Home kb Condition: Stable kb Diagnosis - Pain in right shoulder kb Followup: kb - With: Emergency Department - When: As needed - Reason: Worsening of condition Followup: kb - With: Private Physician - When: 2 - 3 days - Reason: Recheck today's complaints, Continuance of care, Re-evaluation by your physician Discharge Instructions: - Discharge Summary Sheet kb - Musculoskeletal Pain kb - Shoulder Pain, [id number] kb Forms: - Medication Reconciliation Form kb - Thank You Letter kb - Antibiotic Education kb - Prescription Opioid Use kb Prescriptions: - Diclofenac Sodium 75 mg Oral tablet,delayed release (DR/EC) - take 1 tablet by ORAL route 2 times per day As needed; 30 tablet; Refills: 0, kb Product Selection Permitted - orphenadrine citrate 100 mg Oral Tablet Sustained Release - take 1 tablet by ORAL route 2 times per day As needed; 20 tablet; Refills: 0, kb Product Selection Permitted Signatures: Dispatcher [employer] EDJaylyn Kraus FNP-C FNP-Cherelle Hendrix RN RN aa5 Mary Simpson RN RN kr3
[2022-04-22] MEDS ORDERED: NA CHLORIDE 0.9% 1,000 ML ONE (13:34)
[2022-04-22] MEDS ORDERED: KETOROLAC 30 MG/ML INJ ONE (13:34)
--- NOTE | 2022-04-22 14:51 | EKG ---
Test Date: 2022-04-22 Test Time: 11:02:52 Access Nurse: KAUSHAL MEASUREMENT RESULTS: Intervals: Rate: 64 DC: 230 QRSD: 84 QT: 422 QTc: 435 [place]: P: 9 DC: 230 QRS: -20 T: 55 INTERPRETIVE STATEMENTS: Sinus rhythm with 1st degree AV block Anterior infarct, age undetermined Abnormal ECG Compared to ECG 03/04/2018 10:24:08 Myocardial infarct finding now present Left ventricular hypertrophy no longer present Electronically Signed On 04-22-22 14:50:21 S[employer]IOR [employer] END [employer]ELOPER by Guero Marina
[2022-04-22 15:25] VITALS: TEMP 97.8; O2SAT 98
[2022-04-22 15:37] VITALS: BP 142/64
== END 2022-04-22 15:12 | disposition home or self-care (01) ==
LOC: ER 10:47
DX: M25.511 Pain in right shoulder (principal); R07.89 Other chest pain; I10 Essential (primary) hypertension
CPT/HCPCS: 96361; 93005; 85025; 36415; 83735; 85610; 85379; 84484; 80053; 83880; 71275; 71045; 96374; 99284; Q9967; J7030

== ENCOUNTER 2022-06-05 08:21 | Observation (INO) | payer MEDICARE ==
--- OUTSIDE RECORDS SUMMARY | 2022-06-05 08:25 | XMS REPORT | Continuity of Care Document ---
:1950 Author Organization [facility] t Address [address] [place] [address] Care Team Providers Name Role Phone Gaby Diaz Attending Clinician Jess Bedoya Attending Clinician Aureliano_Jamila Attending Clinician Unavailable AMBREEN_NATI Attending Clinician Unavailable Shield Attending Clinician Unavailable Tumelson_A Admitting Clinician Unavailable AMBREEN_MYRANDAA Admitting Clinician Unavailable Shield Admitting Clinician Unavailable Payers Payer Name Policy Type Policy Number Effective Date Expiration Date [id number] 2021 (MEDICARE 00:00:00 REPLACEMENT HMO) UHC - MEDICARE [id number] COMPLETE (MEDICARE REPLACEMENT HMO) WELLCARE (MEDICARE [id number] 2019 REPLACEMENT/ADVANTA 00:00:00 GE - PPO) [facility] [id number] MEDICARE SOLUTIONS - MEDICARE COMPLETE (MEDICARE REPLACEMENT [...] Hypertensi Problem Active [place] ve 6-21 da disorder Disorder 00:00: [facility] Chronic Chronic Problem Active [place] Kidney 6- da disease Disease 00:00: [facility] Hyperglyce Hyperglyce Problem Active 2018-0 M jann isabela due to isabela Due to 6-21 da type 2 Type 2 00:00: [facility] diabetes Diabetes 00 al mellitus Mellitus [facility] Outre[facility] h Program Allergies, Adverse Reactions, Alerts This patient has no known allergies or adverse reactions. Social History Smoking Status Start Date Stop Date Source Never Smoker [facility] [facility] Former Smoker [place] [facility] Medications Ordered Filled [...] Source Name Name pneumococcal pneumococcal 2019-07-12 Completed [place] polysaccharide PPV23 polysaccharide PPV23 12:56:41 [facility] influenza, trivalent, influenza, 2019-02-06 Completed [place] adjuvanted trivalent, 15:09:00 [facility] adjuvanted [facility] pneumococcal pneumococcal 2017-09-30 Completed [place] conjugate PCV 13 conjugate PCV 13 15:42:41 [facility] Tdap Tdap 2017-09-30 Completed [place] 15:39:39 [facility] influenza, influenza, 2017-02-03 Completed [place] unspecified unspecified 00:00:00 [facility] formulation formulation [facility] Outre [facility]ch Program influenza, influenza, 2016-02-11 Completed [place] unspecified unspecified 00:00:00 [facility] formulation formulation [facility] Vital Signs Vital Name Observation Time Observation Value Comments Source BP Diastolic 2020-09-03 00:00:00 64 mm[Hg] [place] [facility] Height 2020-09-03 00:00:00 59 [in_i] [place] [facility] BMI (Body Mass 2020-09-03 00:00:00 36.3 kg/m2 [place]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 [facility] Index) [facility] BP Systolic 2020-09-03 00:00:00 112 mm[Hg] [place] [facility] Body Weight 2020-09-03 00:00:00 2873.6 [oz_av] [place]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 BP Diastolic 2019-12-25 00:00:00 68 mm[Hg] [place] [facility] Height 2019-12-25 00:00:00 59 [in_i] [place] [facility] BMI (Body Mass 2019-12-25 00:00:00 37 kg/m2 [place]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 [facility] Index) [facility] BP Systolic 2019-12-25 00:00:00 122 mm[Hg] [place] [facility] Body Weight 2019-12-25 00:00:00 2928 [oz_av] [place] [facility] BP Diastolic 2019-07-13 00:00:00 81 mm[Hg] [place] [facility] Height 2019-07-13 00:00:00 59 [in_i] [place] [facility] BMI (Body Mass 2019-07-13 00:00:00 38.1 kg/m2 [place]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 Index) [facility] BP Systolic 2019-07-13 00:00:00 162 mm[Hg] [place] [facility] Body Weight 2019-07-13 00:00:00 188.4 [lb_av] [place] [facility] BP Diastolic 2019-07-12 00:00:00 68 mm[Hg] [place] [facility] Height 2019-07-12 00:00:00 59 [in_i] [place] [facility] BMI (Body Mass 2019-07-12 00:00:00 37.7 kg/m2 [place]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 Index) [facility] BP Systolic 2019-07-12 00:00:00 122 mm[Hg] [place] [facility] Body Weight 2019-07-12 00:00:00 186.8 [lb_av] [place] [facility] BP Diastolic 2019-05-17 00:00:00 74 mm[Hg] [place] [facility] Height 2019-05-17 00:00:00 59 [in_i] [place] [facility] BMI (Body Mass 2019-05-17 00:00:00 38.6 kg/m2 [place]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 Index) [facility] BP Systolic 2019-05-17 00:00:00 138 mm[Hg] [place] [facility] Body Weight 2019-05-17 00:00:00 191.2 [lb_av] [place] [facility] BP Diastolic 2019-03-20 00:00:00 66 mm[Hg] [place] [facility] Height 2019-03-20 00:00:00 59 [in_i] [place] [facility] BMI (Body Mass 2019-03-20 00:00:00 37.4 kg/m2 [place]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 Index) [facility] BP Systolic 2019-03-20 00:00:00 108 mm[Hg] [place] [facility] Body Weight 2019-03-20 00:00:00 185.1 [lb_av] [place] [facility] BP Diastolic 2019-02-06 00:00:00 62 mm[Hg] [place] [facility] Height 2019-02-06 00:00:00 59 [in_i] [place] [facility] BMI (Body Mass 2019-02-06 00:00:00 38.6 kg/m2 [place]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 Index) [facility] BP Systolic 2019-02-06 00:00:00 116 mm[Hg] [place] [facility] Body Weight 2019-02-06 00:00:00 191 [lb_av] [place] [facility] BP Diastolic 2018-12-05 00:00:00 80 mm[Hg] [place] [facility] Height 2018-12-05 00:00:00 59 [in_i] [place] [facility] BMI (Body Mass 2018-12-05 00:00:00 38.1 kg/m2 [place]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 Index) [facility] BP Systolic 2018-12-05 00:00:00 138 mm[Hg] [place] [facility] Body Weight 2018-12-05 00:00:00 188.8 [lb_av] [place] [facility] BP Diastolic 2018-06-09 00:00:00 71 mm[Hg] [facility] [facility] Height 2018-06-09 00:00:00 59 [in_i] [place] BMI (Body Mass 2018-06-09 00:00:00 38.4 kg/m2 [place]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 BP Systolic 2018-06-09 00:00:00 138 mm[Hg] [facility] Body Weight 2018-06-09 00:00:00 3040 [oz_av] [facility] Procedures Procedure Date / Time Performing Clinician Source Performed MAMMO, screening, 2019-07-12 00:00:00 [place] [facility] digital, bilateral [facility] ELECTROCARDIOGRAM, 2019-07-12 00:00:00 [place] [facility] COMPLETE [facility] DXA BONE DENSITY, AXIAL 2019-07-12 00:00:00 Bhatia jp [facility] Screening for Malignant 2018-06-28 00:00:00 Bhatia jp [facility] Neoplasm of Colon [facility] Partial Hysterectomy [place] [facility] Plan of Care Planned Activity Planned Date Details Comments Source Future Scheduled Test 2020-10-03 HbA1c (hemoglobin [place] [facility] 00:00:00 A1c), blood [code Health Out reach = HbA1c Program (hemoglobin A1c), blood] Future Scheduled Test 2020-10-03 CBC w/ diff [code [place] [facility] 00:00:00 = CBC w/ diff] Health Outrea ch Program Future Scheduled Test 2020-10-03 CMP, serum or [place] [facility] 00:00:00 plasma [code = Health Outrea ch CMP, serum or Program plasma] Future Scheduled Test 2020-10-03 lipid panel, blood [place] [facility] 00:00:00 [code = lipid Health Outreac h panel, blood] Program Future Scheduled Test 2020-10-03 microalbumin/creat [place] [facility] 00:00:00 inine, mass ratio, Health Ou [place] urine [code = Program microalbumin/creat inine, mass ratio, urine] Future Scheduled Test 2020-10-03 TSH, [place]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 00:00:00 ultra-sensitive, Health Outr each serum [code = TSH, Program ultra-sensitive, serum] Diagnostic Test 2020-09-03 urinalysis, [place] [facility] Pending 00:00:00 dipstick [code = Health Outr each urinalysis, Program dipstick] Instructions [place] [facility] Encounters Start End Encounter Admission Attending Care Care Encounter Source Date/Time Date/Time Type Type Clinicians Facility Department ID 2022-05-07 2022-05-07 Care Gaby [id number]. [id number]. CLA [id number] [facility] 20:00:00 20:30:00 [employer] Sheldon [id number] Medical [id number] 2022-02-27 2022-02-27 CAV Jess 2.16.840. [id number]. CLAC [id number] [facility] 22:00:00 23:00:00 [place] [id number] Medical [id number] 2022-02-17 2022-02-17 Outpatient Tumelson_A [facility] [id number] [facility] 00:00:00 00:00:00 [id number] Medica l Group 2022-01-29 2022-01-29 [id number] [facility] 00:00:00 00:00:00 [id number] Medica l Group 2021-10-24 2021-10-24 Outpatient [facility] [id number] [facility] 03:54:00 03:54:00 [id number] Medica l Group 2021-08-27 2021-08-27 Outpatient DM DMG [id number] [facility] 12:00:00 12:00:00 [id number] Medica l Group 2021-03-26 2021-03-26 Outpatient AMBREEN_FAR [facility] 100 [id number] [place] 12:00:00 12:00:00 HANA [id number] [facility] 2021-03-17 2021-03-17 Outpatient AMBREEN_FAR ME[facility]OP MEHOP 100 186- [place] 12:03:00 12:03:00 HANA [id number] [facility] 2021-03-10 2021-03-10 Outpatient AMBREEN_FAR [facility] ME[facility]OP 100 186- [place] 11:10:00 11:10:00 HANA [id number] [facility] 2021-01-28 2021-01-28 Outpatient AMBREEN_FAR MEHOP MEHOP 100 186- [place] 09:07:00 09:07:00 HANA [id number] [facility] 2021-01-27 2021-01-27 Outpatient AMBREEN_FAR MEHOP MEHOP 100 186- [place] 04:35:00 04:35:00 HANA [id number] [facility] 2021-01-16 2021-01-16 Outpatient AMBREEN_FAR MEHOP MEHOP 100 186- [place] 11:22:00 11:22:00 HANA [id number] [facility] 2020-12-19 2020-12-19 Outpatient AMBREEN_FAR MEHOP MEHOP 100 186- [place] 09:14:00 09:14:00 HANA [id number] [facility] 2020-11-14 2020-11-14 Outpatient AMBREEN_FAR ME[facility]OP MEHOP 100 186- [place] 02:58:00 02:58:00 HANA [id number] [facility] 2020-09-05 2020-09-05 Outpatient AMBREEN_FAR ME[facility]OP ME[facility]OP 100 186- [place] 10:55:00 10:55:00 HANA [id number] [facility] 2020-09-04 2020-09-04 Outpatient AMBREEN_FAR [facility] MEHOP 100 [place] 08:23:00 08:23:00 HANA [id number] [facility] 2020-09-03 2020-09-03 Outpatient AMBREEN_FAR [facility] MEHOP 100 [place] 04:35:00 04:35:00 HANA [id number] [facility] 2020-09-03 2020-09-03 [facility] - [id number] [place] 00:00:00 00:00:00 Sayda Kelly MD: [id number] [facility] Epis copywriter [place] [address] HOP - [facility] [address] [place] [facility] [place] [facility] [facility] [address] , Ph. 2020-08-27 2020-08-27 Outpatient AMBREEN_FAR MEHOP UTHOP 100 [place] 03:50:00 03:50:00 HANA [id number] [facility] 2020-08-19 2020-08-19 Outpatient AMBREEN_FAR MEHOP UTHOP 100 [place] 03:28:00 03:28:00 HANA [id number] [facility] 2020-08-18 2020-08-18 Outpatient AMBREEN_FAR MEHOP MEHOP 100 [place] 08:51:00 08:51:00 HANA [id number] [facility] 2020-08-15 2020-08-15 Outpatient AMBREEN_FAR MEHOP MEHOP 100 [place] 02:15:00 02:15:00 HANA [id number] [facility] 2020-08-13 2020-08-13 Outpatient AMBREEN_FAR MEHOP UTHOP 100 [place] 11:18:00 11:18:00 HANA [id number] [facility] 2020-07-25 2020-07-25 Outpatient AMBREEN_FAR MEHOP MEHOP 100 [place] 05:16:00 05:16:00 HANA [id number] [facility] 2020-07-25 2020-07-25 Outpatient AMBREEN_FAR MEHOP MEHOP 100 186- [place] 01:02:00 01:02:00 HANA [id number] [facility] 2020-02-28 2020-02-28 Outpatient Shield MMG MMG [id number] [place] 02:48:00 02:48:00 [id number] da Medical Group 2020-01-31 2020-01-31 Outpatient AMBREEN_FAR MEHOP MEHOP 100 186 [place] 01:02:00 01:02:00 HANA [id number] [facility] 2019-12-26 2019-12-26 Outpatient AMBREEN_FAR ME[facility] MEHOP 100 186 [place] 11:01:00 11:01:00 HANA [id number] [facility] 2019-12-25 2019-12-25 Outpatient AMBREEN_FAR MEHOP MEHOP 100 186 [place] 12:00:00 12:00:00 HANA [id number] [facility] 2019-12-25 2019-12-25 Nati [facility] [place] - [id number] M [place] 00:00:00 00:00:00 Sayda Kelyl MD: [id number] [facility] [place] Outre [address] h , Ph. Program 2019-09-30 2019-09-30 Outpatient AMBREEN_FAR MEHOP MEHOP 100 186 [place] 11:10:00 11:10:00 HANA [id number] [facility] 2019-09-14 2019-09-14 Outpatient AMBREEN_FAR MEHOP MEHOP 100 [id number] [place] 04:26:00 04:26:00 HANA [id number] [facility] 2019-08-08 2019-08-08 Outpatient AMBREEN_FAR MEHOP MEHOP 100 [id number] [place] 02:35:00 02:35:00 HANA [id number] [facility] 2019-07-13 2019-07-13 Outpatient AMBREEN_FAR UTHOP [facility] 100 [id number] [place] 03:22:00 03:22:00 HANA [id number] [facility] 2019-07-13 2019-07-13 Palmer Bhagat [facility] [place] - [id number] [place] 00:00:00 00:00:00 Sayda Guan MD: [id number] [facility] Epis copywriter [place] [address] HOP - [facility] [address], Outreac [facility] Program [address] , Ph. 2019-07-12 2019-07-12 Outpatient AMBREEN_FAR UTHOP [facility] 100 186- [place] 03:26:00 03:26:00 HANA [id number] [facility] 2019-07-12 2019-07-12 Nati [facility] [place] - [id number] M [place] 00:00:00 00:00:00 Sayda Kelly MD: 1700 [facility] [place], [place] Outre [address] h , Ph. Program 2019-05-17 2019-05-17 Outpatient AMBREEN_FAR [facility] 100 [id number] [place] 05:34:00 05:34:00 HANA [id number] [facility] 2019-05-17 2019-05-17 Nati [facility] [place] - [id number] M [place] 00:00:00 00:00:00 Sayda Kelly MD: 1700 [facility] [place] [place] Outreac [address] h , Ph. Program 2019-04-17 2019-04-17 Outpatient AMBREEN_FAR UTHOP [facility] 100 [id number] [place] 03:07:00 03:07:00 HANA [id number] [facility] 2019-03-20 2019-03-20 Nati [facility] [place] - [id number] M [place] 00:00:00 00:00:00 Sayda Kelly MD: 1700 [facility] - [address], [place], [place] Outre [address] h , Ph. Program 2019-02-06 2019-02-06 Nati [place] - [id number] [place] 00:00:00 00:00:00 Sayda Kelly MD: 1700 [facility] [facility] - [address], [place] Outre [address] h , Ph. Program 2018-12-08 2018-12-08 [facility] [id number] [place] 00:00:00 00:00:00 Sayda Carrillo INDIGO VAT TENDER CLOTH: 1700 [facility] Epis copywriter [place] [facility] - [address], [facility] Outre [address] h , Ph. Program (979) -2018-12-06 2018-12-06 Maryam [facility] [place] - [id number] [place] 00:00:00 00:00:00 Sayda Carrillo INDIGO VAT TENDER CLOTH: 1700 [facility] Epis copywriter [place] [facility] - [address], [facility] Outre [address] h , Ph. Program (979) 2018-12-05 2018-12-05 Nati [facility] [place] - [id number] [place] 00:00:00 00:00:00 Sayda Kelly MD: 1700 [facility] [place] [facility] - [address], [place] Outre [address] h , Ph. Program 2018-06-09 2018-06-[address] [facility] [place] - [id number] [place] 00:00:00 00:00:00 Discovery Melanie 0228 da HONEY BLENDER: [address] [facility] [place] - [address] [place] [address] , Ph. Results Test Description Test Time [...] Blood (test code = Blood) - Specific [place] (test code = Specific [place]) 1.015 Ketone (test code = Ketone) - Bilirubin (test code = Bilirubin) - Glucose (test code = Glucose) 3+ Appearance (test code = Appearance) cloudy Color (test code = Color) yellow [facility] 2000 panel - Serum or [id number] 00:00:00 Test Item Value Reference Range Interpretation [...] by Creatinine-based formula (CKD-EPI) (test code = 25132-9) Glomerular filtration 62 mL/min/1.73 >59 rate/1.73 sq M.predicted among blacks [Volume Rate/Area] in Serum, Plasma or Blood by Creatinine-based formula (CKD-EPI) (test code = 74616-1) Urea nitrogen/Creatinine [Mass 29 12-28 H Ratio] [...] code = 2027-) Calcium [Mass/volume] in Serum 9.7 mg/dL 8.7-10.3 or Plasma (test code = 66548-4) Protein [Mass/volume] in Serum 7.0 g/dL 6.0-8.5 or Plasma (test code = 2885-2) Albumin [Mass/volume] in Serum 4.4 g/dL 3.8-4.8 or Plasma (test code = 1751-7) Globulin [Mass/volume] in 2.6 g/dL 1.5-4.5 Serum by calculation (test code = 39468-4) Albumin/Globulin [Mass Ratio] 1.7 1.2-2.2 in Serum or Plasma (test code = 1759-0) Bilirubin.total [Mass/volume] 0.7 mg/dL 0.0-1.2 in Serum or Plasma (test code = 1974-2) Alkaline phosphatase 91 IU/L 39-117 [Enzymatic activity/volume] in Serum or Plasma (test code = 6768-6) Aspartate aminotransferase 18 IU/L 0-40 [Enzymatic activity/volume] in Serum or Plasma (test code = 1920-8) Alanine aminotransferase 12 IU/L 0-32 [Enzymatic activity/volume] in Serum or Plasma (test code = 1742-6) [facility] W Auto Differential panel - Blood 2019-12-06 [...] = 706-2) immature cells (test code = airline station agent immature cells) Neutrophils [#/volume] in Blood 3.0 [...] Blood by Automated count (test code = 72271-5) Immature granulocytes 0.0 x10e3/uL 0.0-0.1 [#/volume] in Blood by Automated count (test code = 30779-4) Nucleated erythrocytes/100 airline station agent leukocytes [Ratio] in Blood by Automated count (test code = 13533-0) Morphology [Interpretation] in airline station agent Blood Narrative (test code = 41759-9) [facility]ne[facility] panel, [id number] 00:00:00 Test Item Value Reference Range Interpretation [...] or Plasma by calculation (test code = 02653-8) Cholesterol in LDL [Mass/volume] in 101 mg/dL 0-99 H Serum or Plasma by calculation (test code = 30249-8) Laboratory comment [Text] in Report airline station agent Narrative (test code = 51605-5) Cholesterol.total/Cholesterol.in 2.9 ratio 0.0-4.4 HDL [Mass ratio] in Serum or Plasma (test code = 9830-1) Cholesterol in LDL/Cholesterol in 1.4 ratio 0.0-3.2 HDL [Mass Ratio] in Serum or Plasma (test code = 57215-9) [facility] assessment panel, [id number] 00:00:00 Test Item Value Reference Range Interpretation Comments interpretation (test code = note interpretation) pdf (test code = pdf) not applicable [facility]ckinneylitholink CKD [id number] 00:00:00 Test Item Value Reference Range Interpretation Comments interpretation (test code = note interpretation) pdf (test code = pdf) . [facility]neydiabetes patient [id number] 00:00:00 Test Item Value Reference Range Interpretation Comments pdf (test code = pdf) not applicable [facility]neyHemoglobin A1c/Hemoglobin.total in [id number] 00:00:00 Test Item Value Reference Range Interpretation Comments Hemoglobin A1c/Hemoglobin.total in 13.4 % 4.8-5.6 H Blood (test code = 4548-4) [facility]neyHepatitis C virus Ab Signal/Cutoff in Serum or Plasma by [id number] 00:00:00 Test Item Value Reference Range Interpretation Comments Hepatitis C virus Ab Signal/Cutoff in <0.1 0.0-0.9 Serum or Plasma by Immunoassay (test code = 57256-5) [facility] 2000 panel - Serum or [id number] 00:00:00 Test Item Value Reference Range Interpretation [...] mg/dL 8.7-10.3 or Plasma (test code = 56403-7) Protein [Mass/volume] in Serum 6.9 g/dL 6.0-8.5 or Plasma (test code = 2885-2) Albumin [Mass/volume] in Serum 4.3 g/dL 3.8-4.8 or Plasma (test code = 1751-7) Globulin [Mass/volume] in 2.6 g/dL 1.5-4.5 Serum by calculation (test code = 15089-8) Albumin/Globulin [Mass Ratio] 1.7 1.2-2.2 in Serum or Plasma (test code = 1759-0) Bilirubin.total [Mass/volume] 0.7 mg/dL 0.0-1.2 in Serum or Plasma (test code = 1975-2) Alkaline phosphatase 85 IU/L 39-117 [Enzymatic activity/volume] in Serum or Plasma (test code = 6768-6) Aspartate aminotransferase 23 IU/L 0-40 [Enzymatic activity/volume] in Serum or Plasma (test code = 1920-8) Alanine aminotransferase 13 IU/L 0-32 [Enzymatic activity/volume] in Serum or Plasma (test code = 1742-6) [facility] CKD [id number] 00:00:00 Test Item Value Reference Range Interpretation Comments interpretation (test code = note interpretation) pdf image (test code = pdf image) . [facility] metabolic 2000 panel - Serum or [id number] 00:00:00 Test Item Value Reference Range Interpretation [...] in Serum or Plasma (test code = 202-9) Calcium [Mass/volume] in Serum 9.8 mg/dL 8.7-10.3 or Plasma (test code = 23527-4) Protein [Mass/volume] in Serum 6.9 g/dL 6.0-8.5 or Plasma (test code = 2885-2) Albumin [Mass/volume] in Serum 4.3 g/dL 3.8-4.8 or Plasma (test code = 1751-7) Globulin [Mass/volume] in 2.6 g/dL 1.5-4.5 Serum by calculation (test code = 26502-8) Albumin/Globulin [Mass Ratio] 1.7 1.2-2.2 in Serum or Plasma (test code = 1759-0) Bilirubin.total [Mass/volume] 0.7 mg/dL 0.0-1.2 in Serum or Plasma (test code = 1975-2) Alkaline phosphatase 85 IU/L 39-117 [Enzymatic activity/volume] in Serum or Plasma (test code = 6768-6) Aspartate aminotransferase 23 IU/L 0-40 [Enzymatic activity/volume] in Serum or Plasma (test code = 1920-8) Alanine aminotransferase 13 IU/L 0-32 [Enzymatic activity/volume] in Serum or Plasma (test code = 1742-6) [facility] CKD [id number] 00:00:00 Test Item Value Reference Range Interpretation Comments interpretation (test code = note interpretation) pdf image (test code = pdf image) . [facility] ProgramComprehensive metabolic 2000 panel - Serum or [id number] 00:00:00 Test Item Value Reference Range Interpretation [...] (test code = 2075-0) Carbon dioxide, total 21 mmol/L 20-29 [Moles/volume] in Serum or Plasma (test code = 2027-9) Calcium [Mass/volume] in Serum 9.9 mg/dL 8.7-10.3 or Plasma (test code = 93296-3) Protein [Mass/volume] in Serum 7.3 g/dL 6.0-8.5 or Plasma (test code = 2885-2) Albumin [Mass/volume] in Serum 4.4 g/dL 3.6-4.8 or Plasma (test code = 1751-7) Globulin [Mass/volume] in 2.9 g/dL 1.5-4.5 Serum by calculation (test code = 02882-4) Albumin/Globulin [Mass Ratio] 1.5 1.2-2.2 in Serum [...] Serum or Plasma (test code = 1742-6) [facility]ney[facility] 1996 panel - Serum or Plasma 2019-04-19 00:00:00 Test Item Value Reference Range Interpretation Comments Cholesterol [Mass/volume] in Serum 209 mg/dL 100-199 H or Plasma (test code = 2093-3) Triglyceride [Mass/volume] in Serum 91 mg/dL 0-149 or Plasma (test code = 2571-8) Cholesterol in HDL [Mass/volume] in 93 mg/dL >39 Serum or Plasma (test code = 2085-9) Cholesterol in VLDL [Mass/volume] 18 mg/dL 5-40 in Serum or Plasma by calculation (test code = 92872-5) Cholesterol in LDL [Mass/volume] in 98 mg/dL 0-99 Serum or Plasma by calculation (test code = 43602-4) comment: (test code = comment:) airline station agent [facility], [id number] 00:00:00 Test Item Value Reference Range Interpretation Comments interpretation (test code = note interpretation) pdf image (test code = pdf not applicable image) [facility] CKD [id number] 00:00:00 Test Item Value Reference Range Interpretation Comments interpretation (test code = note interpretation) pdf image (test code = pdf image) . [facility] patient [id number] 00:00:00 Test Item Value Reference Range Interpretation Comments pdf image (test code = pdf not applicable image) [facility]em[facility] A1c/Hemoglobin.total in [id number] 00:00:00 Test Item Value Reference Range Interpretation Comments Hemoglobin A1c/Hemoglobin.total in 11.2 % 4.8-5.6 H Blood (test code = 4548-4) [facility] 2000 panel - Serum or [id number] 00:00:00 Test Item Value Reference Range Interpretation [...] (test code = 2075-0) Carbon dioxide, total 21 mmol/L 20-29 [Moles/volume] in Serum or Plasma (test code = 2027-9) Calcium [Mass/volume] in Serum 9.9 mg/dL 8.7-10.3 or Plasma (test code = 82633-1) Protein [Mass/volume] in Serum 7.3 g/dL 6.0-8.5 or Plasma (test code = 2885-2) Albumin [Mass/volume] in Serum 4.4 g/dL 3.6-4.8 or Plasma (test code = 1751-7) Globulin [Mass/volume] in 2.9 g/dL 1.5-4.5 Serum by calculation (test code = 41236-0) Albumin/Globulin [Mass Ratio] 1.5 1.2-2.2 in Serum [...] Serum or Plasma (test code = 1742-6) [facility] 1996 panel - Serum or Plasma 2019-04-19 00:00:00 Test Item Value Reference Range Interpretation Comments Cholesterol [Mass/volume] in Serum 209 mg/dL 100-199 H or Plasma (test code = 2093-3) Triglyceride [Mass/volume] in Serum 91 mg/dL 0-149 or Plasma (test code = 2571-8) Cholesterol in HDL [Mass/volume] in 93 mg/dL >39 Serum or Plasma (test code = 2085-9) Cholesterol in VLDL [Mass/volume] 18 mg/dL 5-40 in Serum or Plasma by calculation (test code = 66710-3) Cholesterol in LDL [Mass/volume] in 98 mg/dL 0-99 Serum or Plasma by calculation (test code = 35295-0) comment: (test code = comment:) airline station agent [facility], [id number] 00:00:00 Test Item Value Reference Range Interpretation Comments interpretation (test code = note interpretation) pdf image (test code = pdf not applicable image) [facility] CKD [id number] 00:00:00 Test Item Value Reference Range Interpretation Comments interpretation (test code = note interpretation) pdf image (test code = pdf image) . [facility] patient [id number] 00:00:00 Test Item Value Reference Range Interpretation Comments pdf image (test code = pdf not applicable image) [facility]em[facility] A1c/Hemoglobin.total in [id number] 00:00:00 Test Item Value Reference Range Interpretation Comments Hemoglobin A1c/Hemoglobin.total in 11.2 % 4.8-5.6 H Blood (test code = 4548-4) [facility] CKD [id number] 00:00:00 Test Item Value Reference Range Interpretation Comments interpretation (test code = note interpretation) pdf image (test code = pdf image) . [facility] patient [id number] 00:00:00 Test Item Value Reference Range Interpretation Comments pdf image (test code = pdf not applicable image) [facility]em[facility] A1c/Hemoglobin.total in [id number] 00:00:00 Test Item Value Reference Range Interpretation Comments Hemoglobin A1c/Hemoglobin.total in 10.6 % 4.8-5.6 H Blood (test code = 4548-4) [facility] CKD [id number] 00:00:00 Test Item Value Reference Range Interpretation Comments interpretation (test code = note interpretation) pdf image (test code = pdf image) . [facility] patient [id number] 00:00:00 Test Item Value Reference Range Interpretation Comments pdf image (test code = pdf not applicable image) [facility]em[facility] A1c/Hemoglobin.total in [id number] 00:00:00 Test Item Value Reference Range Interpretation Comments Hemoglobin A1c/Hemoglobin.total in 10.6 % 4.8-5.6 H Blood (test code = 4548-4) [facility] CKD [id number] 00:00:00 Test Item Value Reference Range Interpretation Comments interpretation (test code = note interpretation) pdf image (test code = pdf image) . [facility] patient [id number] 00:00:00 Test Item Value Reference Range Interpretation Comments pdf image (test code = pdf not applicable image) [facility]em[facility] A1c/Hemoglobin.total in [id number] 00:00:00 Test Item Value Reference Range Interpretation Comments Hemoglobin A1c/Hemoglobin.total in 10.6 % 4.8-5.6 H Blood (test code = 4548-4) [facility] 2000 panel - Serum or [id number] 00:00:00 Test Item Value Reference Range Interpretation [...] mg/dL 8.7-10.3 or Plasma (test code = 81038-6) Protein [Mass/volume] in Serum 7.1 g/dL 6.0-8.5 or Plasma (test code = 2885-2) Albumin [Mass/volume] in Serum 4.3 g/dL 3.6-4.8 or Plasma (test code = 1751-7) Globulin [Mass/volume] in 2.8 g/dL 1.5-4.5 Serum by calculation (test code = 19755-0) Albumin/Globulin [Mass Ratio] 1.5 1.2-2.2 in Serum or Plasma (test code = 1759-0) Bilirubin.total [Mass/volume] 0.6 mg/dL 0.0-1.2 in Serum or Plasma (test code = 1974-) Alkaline phosphatase 95 IU/L 39-117 [Enzymatic activity/volume] in Serum or Plasma (test code = 6768-6) Aspartate aminotransferase 24 IU/L 0-40 [Enzymatic activity/volume] in Serum or Plasma (test code = 1920-8) Alanine aminotransferase 16 IU/L 0-32 [Enzymatic activity/volume] in Serum or Plasma (test code = 1742-6) [facility] ProgramMicroalbumin/Creatinine [Mass Ratio] in [id number] 00:00:00 Test Item Value Reference Range Interpretation Comments Creatinine [Mass/volume] in 55.3 mg/dL not estab. Urine (test code = 2161-8) Microalbumin [Mass/volume] in 10.6 ug/mL not estab. Urine (test code = 98116-8) Albumin/Creatinine [Mass 19.2 mg/g creat 0.0-30.0 ratio] in Urine (test code = 9318-7) [facility] 2000 panel - Serum or [id number] 00:00:00 Test Item Value Reference Range Interpretation [...] mg/dL 8.7-10.3 or Plasma (test code = 12124-0) Protein [Mass/volume] in Serum 7.1 g/dL 6.0-8.5 or Plasma (test code = 2885-2) Albumin [Mass/volume] in Serum 4.3 g/dL 3.6-4.8 or Plasma (test code = 1751-7) Globulin [Mass/volume] in 2.8 g/dL 1.5-4.5 Serum by calculation (test code = 02014-9) Albumin/Globulin [Mass Ratio] 1.5 1.2-2.2 in Serum [...] Serum or Plasma (test code = 1742-6) [facility] ProgramMicro[facility]/Creatinine [Mass Ratio] in [id number] 00:00:00 Test Item Value Reference Range Interpretation Comments Creatinine [Mass/volume] in 55.3 mg/dL not estab. Urine (test code = 2161-8) Microalbumin [Mass/volume] in 10.6 ug/mL not estab. Urine (test code = 10481-3) Albumin/Creatinine [Mass 19.2 mg/g creat 0.0-30.0 ratio] in Urine (test code = 9318-7) [facility] ProgramComprehensive [facility] 2000 panel - Serum or [id number] 00:00:00 Test Item Value Reference Range Interpretation [...] code = 2027-) Calcium [Mass/volume] in Serum 9.5 mg/dL 8.7-10.3 or Plasma (test code = 48511-4) Protein [Mass/volume] in Serum 7.1 g/dL 6.0-8.5 or Plasma (test code = 2885-2) Albumin [Mass/volume] in Serum 4.3 g/dL 3.6-4.8 or Plasma (test code = 1751-7) Globulin [Mass/volume] in 2.8 g/dL 1.5-4.5 Serum by calculation (test code = 09753-6) Albumin/Globulin [Mass Ratio] 1.5 1.2-2.2 in Serum or Plasma (test code = 1759-0) Bilirubin.total [Mass/volume] 0.6 mg/dL 0.0-1.2 in Serum or Plasma (test code = 1974-) Alkaline phosphatase 95 IU/L 39-117 [Enzymatic activity/volume] in Serum or Plasma (test code = 6768-6) Aspartate aminotransferase 24 IU/L 0-40 [Enzymatic activity/volume] in Serum or Plasma (test code = 1920-8) Alanine aminotransferase 16 IU/L 0-32 [Enzymatic activity/volume] in Serum or Plasma (test code = 1742-6) [facility] ProgramMicroalbumin/Creatinine [Mass Ratio] in [id number] 00:00:00 Test Item Value Reference Range Interpretation Comments Creatinine [Mass/volume] in 55.3 mg/dL not estab. Urine (test code = 2161-8) Microalbumin [Mass/volume] in 10.6 ug/mL not estab. Urine (test code = 11861-6) Albumin/Creatinine [Mass 19.2 mg/g creat 0.0-30.0 ratio] in Urine (test code = 9318-7) [facility], [facility]
[2022-06-05] MEDS ORDERED: NA CHLORIDE 0.9% 1,000 ML ONE (09:07)
[2022-06-05] MEDS ORDERED: FOLIC ACID 5 MG/ML VIAL ONE (09:08)
--- NOTE | 2022-06-05 09:25 | RAD REPORT ---
EXAM DESCRIPTION: CT - Ct Stroke Brain Wo Cont - 06/05/2022 9:19 am CLINICAL HISTORY: STROKE ALERT COMPARISON: Head angio dated 06/05/2022 TECHNIQUE: Noncontrast head CT images ad were obtained without IV contrast. Multiplanar reformats we re generated and reviewed. All CT scans are performed using dose optimization technique as appropriate and may include automated exposure control or mA/KV adjustment according to patient size. FINDINGS: No intracranial hemorrhage, mass, or edema. Midline structures are unremarkable. Normal ventricular caliber for age. Ba-white matter differentiation is preserved, without evidence of acute infarct. No abnormal extra- axial fluid collections. Mastoid air cells and visualized portions of the paranasal sinuses are clear. No acute bony findings. IMPRESSION: No evidence of an acute intracranial process.
[2022-06-05 09:37] LABS: Urine Blood Trace-intact (Negative); Urine Glucose Negative (Negative); Urine Protein 1+ (Negative); Urine pH 6.5 (5.0-7.0)
--- NOTE | 2022-06-05 09:41 | RAD REPORT ---
EXAM DESCRIPTION: CT - Neck Angio - 06/05/2022 9:20 am CLINICAL HISTORY: cva Dizziness. Right leg weakness COMPARISON: Head angio dated 06/05/2022 TECHNIQUE: Axial CT angiography images of the head was performed with multiplanar and maximum intens ity projection reconstructions. Images performed following intravenous administration of 95mL Isovue 370. All CT scans are performed using dose optimization technique as appropriate and may include automated exposure control or mA/KV adjustment according to patient size. FINDINGS: A left aortic arch is identified with variant 2 vessel configuration of the great vessels. No significant flow abnormality is seen of the common carotid bilaterally. Moderate atherosclerotic c alcifications are seen at the bifurcations, with less than 50% stenosis on the left. No significant stenosis is identified involving the cervical segments of both internal carotid arteri es. Normal flow is seen within both vertebral arteries. Tortuosity along the proximal left V1 segment. IMPRESSION: No significant stenosis of the neck vessels is identified. Moderate atherosclerotic calcifications at the bilateral carotid bifurcations. Less than 50% stenosis on the left. Tortuosity along the proximal left vertebral artery V1 segment.
--- NOTE | 2022-06-05 09:42 | RAD REPORT ---
EXAM DESCRIPTION: CT - Head angio - 06/05/2022 9:20 am CLINICAL HISTORY: Dizziness. Stroke alert. Right lower extremity weakness. COMPARISON: No comparisons TECHNIQUE: Axial CT angiography images of the head was performed with multiplanar and maximum intens ity projection reconstructions. Images performed following intravenous administration of 95 mL Isovue [address] All CT scans are performed using dose optimization technique as appropriate and may include automated exposure control or mA/KV adjustment according to patient size. FINDINGS: No evidence of large vessel occlusion. No evidence of aneurysm is detected. Focal moderate narrowing along the proximal left P2 segment (coronal image 110/264). No other flow-limiting stenosi s or vascular malformation identified. Antegrade flow is seen in the vertebral arteries. The vertebral arteries are codominant. The visualized dural venous sinuses are patent. IMPRESSION: Focal moderate narrowing along the proximal left P2 segment. No other significant flow abnormality is detected. The findings were communicated to Murtaza Erickson on 06/05/2022 at 09:39 hours.
[2022-06-05 09:45] LABS: Absolute Lymphocytes (CBC) 1.9 K/uL (0.7-4.9); Lymphocytes % 31.6 % (15.3-44.8); MCV 87.7 fL (80-100); RBC Red Blood Cell Count 4.33 M/uL (3.86-4.86)
[2022-06-05 09:48] LABS: Protime INR 0.99
[2022-06-05] MEDS ORDERED: NA CHLORIDE 0.9% 50 ML ONE (09:54)
[2022-06-05] MEDS ORDERED: CLOPIDOGREL 75 MG TABLET ONE (09:54)
[2022-06-05] MEDS ORDERED: ASPIRIN 81 MG CHEWABLE TABLET ONE (09:54)
[2022-06-05] MEDS ORDERED: CEFTRIAXONE 1000 MG/VIAL ONE (09:54)
--- NOTE | 2022-06-05 10:03 | ER ---
Nurse's Notes [facility] Name: Caryl Watt Age: 72 yrs Sex: Female : 1950 Arrival Date: 06/05/2022 Time: 08:32 Bed 3 Private MD: Diagnosis: Transient cerebral ischemic attack, unspecified;Dizziness and giddiness;Cerebral infarction, unspecified;Other acute kidney failure-insufficency;UTI/ Urinary tract infection, site not specified Presentation: 06/05 08:33 Chief complaint: Patient states: Dizziness started at 6 AM. Chronic R ear pain and ll1 infections. No fever. Coronavirus screen: Vaccine status: Patient reports receiving the 2nd dose of the covid vaccine. Client denies travel out of the [place] in the last 14 days. At this time, the client does not indicate any symptoms associated with coronavirus-19. Ebola Screen: Patient denies travel to an Ebola-affected area in the 21 days before illness onset. Initial Sepsis Screen: Does the patient meet any 2 criteria? No. Patient's initial sepsis screen is negative. Does the patient have a suspected source of infection? No. Patient's initial sepsis screen is negative. Risk Assessment: Do you want to hurt yourself or someone else? Patient reports no desire to harm self or others. Onset of symptoms was June 05, 2022. 08:33 Method Of Arrival: EMS ll1 08:33 Acuity: KAYLENE 3 ll1 08:34 Chief complaint: EMS states: BS 282, NS on monitor, VSS. 20 G R AC. ll1 Triage Assessment: 08:34 General: Appears in no apparent distress. Behavior is calm, cooperative, appropriate ll1 for age. Pain: Complains of pain in right ear Pain currently is 8 out of 10 on a pain scale. Quality of pain is described as aching, sharp, throbbing. EENT: Reports pain in right ear. Neuro: Reports dizziness. Historical: - Allergies: 08:32 Strawberries; ll1 - PMHx: 08:32 Anxiety; Diabetes - IDDM; Hyperlipidemia; Hypertension; ll1 - Immunization history:: Client reports receiving the 2nd dose of the Covid vaccine. - Social history:: Smoking status: Patient/guardian denies using tobacco, the patient reports quitting approximately 30 years ago. - Family history:: not pertinent. Screenin:31 [facility] ED Fall Risk Assessment (Adult) Score/Fall Risk Level 0 - 2 = Low Risk ll1 Oriented to surroundings, Maintained a safe environment, Educated pt \T\ family on fall prevention, incl call for assistance when getting out of bed, Hourly rounding (assess needs \T\ fall precautionary measures) done. Abuse screen: Denies threats or abuse. Nutritional screening: No deficits noted. Tuberculosis screening: No symptoms or risk factors identified. Assessment: 08:52 Reassessment: No changes from previously documented assessment. code stroke called by ll1 Dr. Erickson. 09:24 Reassessment: No changes from previously documented assessment. Patient and/or family ll1 updated on plan of care and expected duration. Pain level reassessed. Patient is alert, oriented x 3, equal unlabored respirations, skin warm/dry/pink. 09:44 Reassessment: No changes from previously documented assessment. Patient and/or family ll1 updated on plan of care and expected duration. Pain level reassessed. Patient is alert, oriented x 3, equal unlabored respirations, skin warm/dry/pink. 10:45 Reassessment: No changes from previously documented assessment. Patient and/or family ll1 updated on plan of care and expected duration. Pain level reassessed. Patient is alert, oriented x 3, equal unlabored respirations, skin warm/dry/pink. 11:45 Reassessment: No changes from previously documented assessment. Patient and/or family ll1 updated on plan of care and expected duration. Pain level reassessed. 12:45 Reassessment: No changes from previously documented assessment. Patient and/or family ll1 updated on plan of care and expected duration. Pain level reassessed. 15:21 Reassessment: No changes from previously documented assessment. Patient and/or family ll1 updated on plan of care and expected duration. Pain level reassessed. Patient is alert, oriented x 3, equal unlabored respirations, skin warm/dry/pink. Vital Signs: 08:33 BP 156 / 82; Pulse 61; Resp 16; Temp 97.7(O); Pulse Ox 97% ; ll1 08:45 BP 174 / 73; Pulse 63; Resp 17; Pulse Ox 98% on R/A; ll1 09:30 BP 152 / 65; Pulse 64; Resp 16; Pulse Ox 100% ; ll1 10:30 BP 166 / 71; Pulse 58; Resp 17; Pulse Ox 100% ; ll1 11:15 BP 166 / 71; Pulse 55; Resp 16; Pulse Ox 99% ; ll1 12:06 BP 170 / 74; Pulse 69; Pulse Ox 98% on R/A; ll1 13:00 BP 170 / 72; Pulse 54; Pulse Ox 100% ; ll1 NIH Stroke Scale Scores: 10:06 NIHSS Score: 0 [facility] ED Course: 08:32 Patient arrived in ED. ll1 08:32 Murtaza Erickson MD is Attending Physician. hermilo 08:32 Lashawn Palmer, YAIR is Primary Nurse. ll1 08:32 Arm band placed on Patient placed in an exam room, on a stretcher. ll1 08:32 No provider procedures requiring assistance completed. Maintain EMS IV. Dressing ll1 intact. Good blood return noted. Site clean \T\ dry. Gauge \T\ site: 20 G R AC. 08:34 Triage completed. ll1 09:21 CT Stroke Brain w/o Contrast In Process Unspecified. EDMS 09:21 CT Head Angio In Process Unspecified. EDMS 09:21 CT Neck Angio In Process Unspecified. EDMS 09:38 XRAY Chest (1 view) In Process Unspecified. EDMS 10:01 Juan Walker MD is Hospitalizing Provider. [facility] 10:26 Lipid Profile Sent. [facility] 11:58 Brain Wo Cont In Process Unspecified. EDMS 15:31 Patient has correct armband on for positive identification. Bed in low position. Call ll1 light in reach. Side rails up X2. Client placed on continuous cardiac and pulse oximetry monitoring. NIBP monitoring applied. nuclear monitoring technician on. 15:31 Patient admitted, IV remains in place. ll1 Administered Medications: 09:42 Drug: NS 0.9% 1000 ml Route: IV; Rate: 1 bolus; Site: right antecubital; ll1 11:05 Follow up: Response: No adverse reaction; IV Status: Completed infusion; IV Intake: ll1 1000ml 09:42 Drug: foLIC Acid 1 mg Route: IVPB; Site: right antecubital; ll1 09:59 Follow up: Response: No adverse reaction; IV Status: Completed infusion; IV Intake: ll1 0.2ml 09:58 Drug: Aspirin Chewable Tablet 162 mg Route: PO; ll1 11:05 Follow up: Response: No adverse reaction 1 09:58 Drug: PlaVIX (clopidogrel) 75 mg Route: PO; 1 11:05 Follow up: Response: No adverse reaction 1 09:58 Drug: Rocephin (cefTRIAXone) 1 grams Route: IV; Rate: per protocol; Site: right [facility] antecubital; 11:06 Follow up: Response: No adverse reaction; IV Status: Completed infusion; IV Intake: [id number] Medication: 15:31 VIS not applicable for this client. ll1 Intake: 09:59 IV: 0ml; Total: 0ml. ll1 11:05 IV: 1000ml; Total: 1000ml. ll1 11:06 IV: 50ml; Total: 1050ml. 1 Outcome: 10:03 Decision to Hospitalize by Provider. hermilo 15:31 Admitted to ER Hold. Please see [facility] for further documentation. 1 15:31 Condition: stable 15:31 Instructed on the need for admit. 20:09 Patient left the ED. kd3 NIH Stroke Scale - NIH Stroke Score Date: 06/05/2022 Time: 10:06 Total Score = 0 1a. Level of Consciousness (LOC) - 0(Alert) 1b. Level of Consciousness (LOC) (Month \T\ Age) - 0(Both) 1c. LOC Commands (Open \T\ Closes Eyes/Security Guard Dispatcher) - 0(Both) 2. Best Gaze (Lateral Gaze Paresis) - 0(Normal) 3. Visual Field Loss - 0(No visual loss) 4. Facial Palsy - 0(Normal) 5a. Left Arm: Motor (10-second hold) - 0(No drift) 5b. Right Arm: Motor (10-second hold) - 0(No drift) 6a. Left Leg: Motor (5-second hold - always test supine) - 0(No drift) 6b. Right Leg: Motor (5-second hold - always test supine) - 0(No drift) 7. Limb Ataxia (finger/nose \T\ heel/chahal - test with eyes open) - 0(Absent) 8. Sensory Loss (pinprick arms/legs/face) - 0(Normal) 9. Best Language: Aphasia (description/naming/reading) - 0(No aphasia) 10. Dysarthria (speech clarity - read or repeat words) - 0(Normal) 11. Extinction and Inattention (visual/tactile/auditory/spatial/personal) - 0(No abnormality) Initials: hermilo Signatures: Dispatcher [employer] EDMurtaza Alvarado MD MD cha Baxter, Mackenzie [id number] Lashawn Palmer RN RN ll1 Barbara Ludwig RN RN kd3 Corrections: (The following items were deleted from the chart) 09:24 08:33 BP 156 / 82; Pulse 61bpm; Resp 16bpm; Pulse Ox 97%; ll1 ll1
--- NOTE | 2022-06-05 10:03 | EDPHYS ---
Physician Documentation [facility] Name: Caryl Watt Age: 72 yrs Sex: Female : 1950 Arrival Date: 06/05/2022 Time: 08:32 Bed 3 Private MD: ED Physician Murtaza Erickson HPI: 06/05 09:03 This 72 yrs old Female presents to ER via EMS with complaints of Dizziness. hermilo 09:03 The patient presents with dizziness, dizzy awaking 4am, 6am , 740am right leg weak and hermilo numb , resolved now. Onset: The symptoms/episode began/occurred at 04:00, at an unknown time. Context: occurred at home. Modifying factors: The symptoms are alleviated by holding head still, the symptoms are aggravated by movement of head. Associated signs and symptoms: The patient has no apparent associated signs or symptoms. Severity of symptoms: At their worst the symptoms were mild moderate in the emergency department the symptoms. Patient's baseline: Neuro: alert and fully oriented. The patient has not experienced similar symptoms in the past. Historical: - Allergies: 08:32 Strawberries; ll1 - PMHx: 08:32 Anxiety; Diabetes - IDDM; Hyperlipidemia; Hypertension; ll1 - Immunization history:: Client reports receiving the 2nd dose of the Covid vaccine. - Social history:: Smoking status: Patient/guardian denies using tobacco, the patient reports quitting approximately 30 years ago. - Family history:: not pertinent. ROS: 09:03 Constitutional: Negative for fever, chills, and weight loss, Eyes: Negative for injury, hermilo pain, redness, and discharge, ENT: Negative for injury, pain, and discharge, Neck: Negative for injury, pain, and swelling, Cardiovascular: Negative for chest pain, palpitations, and edema, Respiratory: Negative for shortness of breath, cough, wheezing, and pleuritic chest pain, Abdomen/GI: Negative for abdominal pain, nausea, vomiting, diarrhea, and constipation, Back: Negative for injury and pain, : Negative for injury, bleeding, discharge, and swelling, MS/Extremity: Negative for injury and deformity, Skin: Negative for injury, rash, and discoloration, Psych: Negative for depression, anxiety, suicide ideation, homicidal ideation, and hallucinations, Allergy/Immunology: Negative for hives, rash, and allergies, Endocrine: Negative for neck swelling, polydipsia, polyuria, polyphagia, and marked weight changes, Hematologic/Lymphatic: Negative for swollen nodes, abnormal bleeding, and unusual bruising. 09:03 Neuro: Positive for dizziness, tingling, weakness, of the right leg. Exam: 09:03 Constitutional: This is a well developed, well nourished patient who is awake, alert, hermilo and in no acute distress. Head/Face: Normocephalic, atraumatic. Eyes: Pupils equal round and reactive to light, extra-ocular motions intact. Lids and lashes normal. Conjunctiva and sclera are non-icteric and not injected. Cornea within normal limits. Periorbital areas with no swelling, redness, or edema. ENT: Nares patent. No nasal discharge, no septal abnormalities noted. Tympanic membranes are normal and external auditory canals are clear. Oropharynx with no redness, swelling, or masses, exudates, or evidence of obstruction, uvula midline. Mucous membranes moist. Neck: Trachea midline, no thyromegaly or masses palpated, and no cervical lymphadenopathy. Supple, full range of motion without nuchal rigidity, or vertebral point tenderness. No Meningismus. Chest/axilla: Normal chest wall appearance and motion. Nontender with no deformity. No lesions are appreciated. Cardiovascular: Regular rate and rhythm with a normal S1 and S2. No gallops, murmurs, or rubs. Normal PMI, no JVD. No pulse deficits. Respiratory: Lungs have equal breath sounds bilaterally, clear to auscultation and percussion. No rales, rhonchi or wheezes noted. No increased work of breathing, no retractions or nasal flaring. Abdomen/GI: Soft, non-tender, with normal bowel sounds. No distension or tympany. No guarding or rebound. No evidence of tenderness throughout. Back: No spinal tenderness. No costovertebral tenderness. Full range of motion. Skin: Warm, dry with normal turgor. Normal color with no rashes, no lesions, and no evidence of cellulitis. MS/ Extremity: Pulses equal, no cyanosis. Neurovascular intact. Full, normal range of motion. Neuro: Awake and alert, GCS 15, oriented to person, place, time, and situation. Cranial nerves II-XII grossly intact. Motor strength 5/5 in all extremities. Sensory grossly intact. Cerebellar exam normal. Normal gait. Psych: Awake, alert, with orientation to person, place and time. Behavior, mood, and affect are within normal limits. 09:59 ECG was reviewed by the Attending Physician. [facility] Vital Signs: 08:33 BP 156 / 82; Pulse 61; Resp 16; Temp 97.7(O); Pulse Ox 97% ; ll1 08:45 BP 174 / 73; Pulse 63; Resp 17; Pulse Ox 98% on R/A; ll1 09:30 BP 152 / 65; Pulse 64; Resp 16; Pulse Ox 100% ; ll1 10:30 BP 166 / 71; Pulse 58; Resp 17; Pulse Ox 100% ; ll1 11:15 BP 166 / 71; Pulse 55; Resp 16; Pulse Ox 99% ; ll1 12:06 BP 170 / 74; Pulse 69; Pulse Ox 98% on R/A; ll1 13:00 BP 170 / 72; Pulse 54; Pulse Ox 100% ; ll1 NIH Stroke Scale Scores: 10:06 NIHSS Score: 0 hermilo MDM: 08:32 Patient medically screened. hermilo 09:08 Differential diagnosis: cardiac arrhythmia, CVA, generalized weakness, head injury, hermilo hypovolemia, idiopathic dizziness, near-syncope, sepsis, TIA, vertigo. Data reviewed: vital signs, nurses notes, EMS record, lab test result(s), EKG, radiologic studies, CT scan, doppler, MRI, plain films. Consideration of Admission/Observation Patient was admitted/placed on observation. Escalation of care including admission/observation considered. Management of patient was discussed with the following: Keno Writer/Runner: dr bridgett moon tpa/tnk, transfer if lvo only. 06/05 08:56 Order name: Basic Metabolic Panel; Complete Time: 11:15 [facility] 06/05 08:56 Order name: CBC with Diff; Complete Time: :59 [facility] 06/05 08:56 Order name: LFT's; Complete Time: 11:15 06/05 08:56 Order name: Magnesium; Complete Time: 11:15 hermilo 06/05 08:56 Order name: NT PRO-BNP; Complete Time: 11:15 hermilo 06/05 08:56 Order name: PT-INR; Complete Time: 09:59 [facility] 06/05 08:56 Order name: Troponin HS; Complete Time: 11:15 [facility] 06/05 08:56 Order name: Urine Culture [facility] 06/05 09:38 Order name: Urine Dipstick-Ancillary; Complete Time: 09:59 [facility] 06/05 09:56 Order name: CREATININE WHOLE BLOOD; Complete Time: 09:59 [facility] 06/05 10:12 Order name: Lipid Profile; Complete Time: 11:15 [facility] 06/05 14:31 Order name: SARS RAPID eb 06/05 14:35 Order name: CBC with Automated Diff [facility] 06/05 14:35 Order name: CBC with Automated Diff [facility] 06/05 08:56 Order name: XRAY Chest (1 view); Complete Time: 11:15 [facility] 06/05 08:56 Order name: EKG; Complete Time: 08:57 [facility] 06/05 08:56 Order name: CT Stroke Brain w/o Contrast; Complete Time: 09:59 [facility] 06/05 08:56 Order name: CT Head Angio; Complete Time: 09:59 [facility] 06/05 08:56 Order name: CT Neck Angio; Complete Time: 09:59 [facility] 06/05 11:55 Order name: Brain Wo Cont; Complete Time: 13:07 [facility] 06/05 14:35 Order name: Comprehensive Metabolic Panel [facility] 06/05 14:35 Order name: Comprehensive Metabolic Panel [facility] 06/05 14:35 Order name: Magnesium [facility] 06/05 14:35 Order name: Magnesium [facility] 06/05 08:56 Order name: Cardiac monitoring; Complete Time: 09:42 [facility] 06/05 08:56 Order name: EKG - Nurse/Tech; Complete Time: 09:42 [facility] 06/05 08:56 Order name: IV Saline Lock; Complete Time: 09:24 [facility] 06/05 08:56 Order name: Labs collected and sent; Complete Time: 09:31 [facility] 06/05 08:56 Order name: O2 Per Protocol; Complete Time: 09:24 [facility] 06/05 08:56 Order name: O2 Sat Monitoring; Complete Time: 09:24 [facility] 06/05 08:56 Order name: Urine Dipstick-Ancillary (obtain specimen); Complete Time: 09:31 [facility] 06/05 14:35 Order name: Physical Therapy Consult [facility] 06/05 14:35 Order name: Speech Therapy Consult [facility] 06/05 14:35 Order name: Heart Healthy EDMS EC:59 Rate is 63 beats/min. Rhythm is regular. QRS [place] is Normal. SD interval is prolonged hermilo at 240 msec. QRS interval is normal. QT interval is normal. No Q waves. T waves are Normal. No ST changes noted. Clinical impression: NSR w/ Non-specific ST/T Changes, 1st degree heart block, and No evidence of ischemia. Interpreted by me. Reviewed by me. Administered Medications: 09:42 Drug: NS 0.9% 1000 ml Route: IV; Rate: 1 bolus; Site: right antecubital; ll1 11:05 Follow up: Response: No adverse reaction; IV Status: Completed infusion; IV Intake: ll1 1000ml 09:42 Drug: foLIC Acid 1 mg Route: IVPB; Site: right antecubital; ll1 09:59 Follow up: Response: No adverse reaction; IV Status: Completed infusion; IV Intake: ll1 0.2ml 09:58 Drug: Aspirin Chewable Tablet 162 mg Route: PO; ll1 11:05 Follow up: Response: No adverse reaction ll1 09:58 Drug: PlaVIX (clopidogrel) 75 mg Route: PO; ll1 11:05 Follow up: Response: No adverse reaction ll1 09:58 Drug: Rocephin (cefTRIAXone) 1 grams Route: IV; Rate: per protocol; Site: right ll1 antecubital; 11:06 Follow up: Response: No adverse reaction; IV Status: Completed infusion; IV Intake: [id number] Disposition Summary: 06/05/22 10:03 Hospitalization Ordered Hospitalization Status: Inpatient Admission hermilo Provider: Juan Walker hermilo Condition: Fair hermilo Problem: new hermilo Symptoms: have improved hermilo Bed/Room Type: Standard hermilo Location: Telemetry/MedSurg (Inpatient)(06/05/22 18:38) eb Room Assignment: 431(06/05/22 18:38) eb Diagnosis - Transient cerebral ischemic attack, unspecified hermilo - Dizziness and giddiness hermilo - Cerebral infarction, unspecified hermilo - Other acute kidney failure - insufficency hermilo - UTI/ Urinary tract infection, site not specified hermilo Forms: - Medication Reconciliation Form hermilo - SBAR form hermilo NIH Stroke Scale - NIH Stroke Score Date: 06/05/2022 Time: 10:06 Total Score = 0 1a. Level of Consciousness (LOC) - 0(Alert) 1b. Level of Consciousness (LOC) (Month \T\ Age) - 0(Both) 1c. LOC Commands (Open \T\ Closes Eyes/Process Chemist) - 0(Both) 2. Best Gaze (Lateral Gaze Paresis) - 0(Normal) 3. Visual Field Loss - 0(No visual loss) 4. Facial Palsy - 0(Normal) 5a. Left Arm: Motor (10-second hold) - 0(No drift) 5b. Right Arm: Motor (10-second hold) - 0(No drift) 6a. Left Leg: Motor (5-second hold - always test supine) - 0(No drift) 6b. Right Leg: Motor (5-second hold - always test supine) - 0(No drift) 7. Limb Ataxia (finger/nose \T\ heel/chahal - test with eyes open) - 0(Absent) 8. Sensory Loss (pinprick arms/legs/face) - 0(Normal) 9. Best Language: Aphasia (description/naming/reading) - 0(No aphasia) 10. Dysarthria (speech clarity - read or repeat words) - 0(Normal) 11. Extinction and Inattention (visual/tactile/auditory/spatial/personal) - 0(No abnormality) Initials: [facility] Signatures: Dispatcher [employer] EDMurtaza Alvarado MD MD cha Williams, Irene, RN YAIR iw Fly Glaser RN RN jl7 Yaneth Nguyen Lynsay, RN RN ll1 Corrections: (The following items were deleted from the chart) 11:55 08:57 MR STROKE PROTOCOL+MRI.RAD.BRZ ordered. EDMS EDMS 16:17 10:03 Telemetry/MedSurg (Inpatient) [facility] iw 16:17 10:03 [facility] iw 18:38 16:17 BR ER HOLD iw eb 18:38 16:17 ERHOLD- iw eb
[2022-06-05 10:15] LABS: Albumin 3.3 g/dL (3.4-5.0); Bilirubin Direct 0.2 mg/dL (0-0.2); Bilirubin Total 0.9 mg/dL (0.2-1.0); Magnesium 1.8 mg/dL (1.6-2.4); Potassium 3.9 mmol/L (3.5-5.1); Protein, Total 7.8 g/dL (6.4-8.2); Troponin High Sensitivity 7.7 pg/mL (<58.9)
--- NOTE | 2022-06-05 11:04 | RAD REPORT ---
EXAM DESCRIPTION: [facility] 9:36 am CLINICAL HISTORY: COUGH COMPARISON: Chest Single View dated 04/22/2022; Chest Single View dated 03/04/2018 TECHNIQUE: Portable AP view of the chest. FINDINGS: The lungs are clear.Mild bibasilar linear atelectasis. No pneumothorax or effusion. The ca rdiomediastinal contours are unremarkable. IMPRESSION: No acute cardiopulmonary process.
--- NOTE | 2022-06-05 12:19 | RAD REPORT ---
EXAM DESCRIPTION: MRI - Brain Wo Cont - 06/05/2022 12:05 pm CLINICAL HISTORY: cva. Headache and dizziness COMPARISON: Head CT 05/25/2022 at 9:12 a.m.. TECHNIQUE: Multiplanar multisequence MRI of the brain performed without IV contrast. FINDINGS: No evidence of acute infarct or other diffusion signal abnormality. No evidence of acute intracranial hemorrhage or abnormal extra-axial fluid collections. Mild diffuse parenchymal volume loss. Ventricular caliber otherwise within normal for age. Midline st ructures are unremarkable. Mild burden of scattered subcortical and deep white matter T2/FLAIR hyperintensities, nonspecific, bu t suggestive of chronic small vessel ischemic changes. No mass effect or midline shift. Major vascular flow voids are preserved. Mastoid air cells are well aerated. Up to moderate mucosal thickening within both maxillary sinuses. . IMPRESSION: No acute intracranial process. No evidence of ventriculomegaly or mass effect. Mild richelle en of nonspecific white matter T2 hyperintensities, suggestive of chronic small vessel ischemic zamarripa es.
[2022-06-05] MEDS ORDERED: ONDANSETRON 4 MG/2 ML VIAL IV PRN (14:30)
[2022-06-05] MEDS: NA CHLORIDE 0.9% 1,000 ML IV SCH ×2 (15:00→21:29)
[2022-06-05 15:18] LABS: SARS-CoV-2 Antigen Rapid Res Negative (Negative)
[2022-06-05 15:39] VITALS: O2SAT 100; BMI 39.4
--- NOTE | 2022-06-05 15:39 | P.HP ---
Certification for Inpatient Patient admitted to: Observation With expected LOS: <2 Midnights Patient will require the following post-hospital care: None Practitioner: I am a practitioner with admitting privileges, knowledge of patient current condition, hospital course, and medical plan of care. Services: Services provided to patient in accordance with Admission requirements found in Title 42 Section 412.3 of the Code of Federal Regulations Patient History Date of Service: 06/05/22 Reason for admission: Lightheadedness; generalized weakness History of Present Illness: Patient is a 72-year-old female with a history of diabetes and hypertension who comes into the hospital with feeling lightheaded. Patient was having vertigo type symptoms when she woke up early this morning. She still was not feeling well so she came into the emergency room for further evaluation. In the ER he was felt she may have had a stroke as her left side was weak. However, imaging studies were negative. She also had dysuria along with fevers. Decision was made to admit the patient to the hospital for further evaluation. Most likely has a urinary tract infection. She will be treated with IV fluids and IV antibiotics. Anticipate discharge in a.m. Allergies strawberry Allergy (Verified 06/05/22 14:40) UNK - Past Medical/Surgical History Has patient received pneumonia vaccine in the past: No Diabetic: Yes -: dm -: htn -: high cholesterol -: anxiety Past Surgical History: Patient denies surgical history - Family History Father Family History: Reviewed- Non-Contributory - Social History Smoking Status: Never smoker Alcohol use: No CD- Drugs: No Review of Systems 10-point ROS is otherwise unremarkable Physical Examination - Vital Signs Temperature: 98 F Blood Pressure: 150/90 Pulse: 60 Respirations: 18 Pulse Ox (%): 96 - Physical Exam General: Alert, In no apparent distress, Oriented x3 HEENT: Atraumatic, PERRLA, Mucous membr. moist/pink, EOMI, Sclerae nonicteric Neck: Supple, 2+ carotid pulse no bruit, No LAD, Without JVD or thyroid abnormality Respiratory: Clear to auscultation bilaterally, Normal air movement Cardiovascular: Regular rate/rhythm, Normal S1 S2, No murmurs Gastrointestinal: Normal bowel sounds, Soft and benign, Non-distended, No tenderness Musculoskeletal: No clubbing, No swelling, No tenderness Integumentary: No rashes Neurological: Normal gait, Normal speech, Normal strength at 5/5 x4 extr, Normal tone, Sensation intact, Cranial nerves 3-12 intact, Normal affect Lymphatics: No axilla or inguinal lymphadenopathy - Studies Laboratory Data (last 24 hrs) 06/05/22 10:23: Triglycerides 116, Cholesterol 179, HDL Cholesterol 61 H, Cholesterol/HDL Ratio 2.93 06/05/22 09:25: PT 10.9, INR 0.99 06/05/22 09:25: WBC 5.90, Hgb 12.4, Hct 38.0, Plt Count 167 06/05/22 09:25: Sodium 133 L, Potassium 3.9, BUN 21 H, Creatinine 1.11 H, Glucose 192 H, Magnesium 1.8, Total Bilirubin 0.9, AST 26, ALT 22, Alkaline Phosphatase 68 Assessment & Plan - Problems (Diagnosis) (1) Weakness Current Visit: Yes Status: Acute (2) Near syncope Current Visit: Yes Status: Acute (3) Vertigo Current Visit: Yes Status: Acute (4) UTI (urinary tract infection) Current Visit: Yes Status: Acute (5) Dysuria Current Visit: Yes Status: Acute - Plan Plan: 1. IV fluids 2. IV antibiotics 3. Neurochecks 4. Strict blood pressure and blood sugar control 5. GI and DVT prophylaxis Discharge Plan: Home Plan to discharge in: 24 Hours - Advance Directives Does patient have a Living Will: No Does patient have a Durable POA for Healthcare: No - Code Status/Comfort Care Code Status Assessed: Yes Code Status: Full Code Critical Care: No Time Spent Managing PTS Care (In Minutes): 45
[2022-06-05] MEDS ORDERED: ATORVASTATIN 40 MG TAB PO SCH (21:00)
[2022-06-05] MEDS: LOSARTAN POTASSIUM 50 MG TABLET PO SCH ×2 (21:00→21:29)
[2022-06-05] MEDS: CEFTRIAXONE 1,000 MG in NA CHLORIDE 0.9% 50 ML IVPB SCH (21:30)
[2022-06-06] MEDS ORDERED: HYDRALAZINE HCL 20 MG/ML VIAL IV PRN (01:11)
[2022-06-06] MEDS ORDERED: ACETAMINOPHEN 500 MG TAB PO PRN (01:24)
[2022-06-06] MEDS ORDERED: GABAPENTIN 100 MG CAP PO PRN (02:22)
[2022-06-06 04:07] LABS: Absolute Lymphocytes (CBC) 2.3 K/uL (0.7-4.9); Hematocrit 36.2 % (36.0-45.0); Lymphocytes % 32.2 % (15.3-44.8); MCV 87.3 fL (80-100); MPV 9.2 fL (7.6-11.3); RBC Red Blood Cell Count 4.15 M/uL (3.86-4.86)
[2022-06-06 04:24] LABS: Albumin 3.3 g/dL (3.4-5.0); Bilirubin Total 0.6 mg/dL (0.2-1.0); Potassium 3.7 mmol/L (3.5-5.1); Protein, Total 7.2 g/dL (6.4-8.2)
[2022-06-06 06:07] VITALS: BP 138/65; TEMP 97.8
[2022-06-06] MEDS: CEFTRIAXONE 1,000 MG in NA CHLORIDE 0.9% 50 ML IVPB SCH (07:50)
[2022-06-06] MEDS: LOSARTAN POTASSIUM 50 MG TABLET PO SCH (07:52)
[2022-06-06] MEDS ORDERED: POTASSIUM CL SA 10 MEQ TAB PO ONE (08:00)
[2022-06-06] MEDS ORDERED: ASPIRIN EC 81 MG TAB PO SCH (09:00)
[2022-06-06] MEDS ORDERED: ENOXAPARIN 40 MG/0.4 ML SQ SCH (09:00)
--- NOTE | 2022-06-06 14:18 | P.DS ---
Discharge Date: 06/06/22 Disposition: ROUTINE DISCHARGE Discharge Condition: GOOD Reason for Admission: Lightheadedness; generalized weakness - Problems (1) Weakness Status: Acute (2) Near syncope Status: Acute (3) Vertigo Status: Acute (4) UTI (urinary tract infection) Status: Acute (5) Dysuria Status: Acute Brief History of Present Illness: Patient is a 72-year-old female with a history of diabetes and hypertension who comes into the hospital with feeling lightheaded. Patient was having vertigo type symptoms when she woke up early this morning. She still was not feeling well so she came into the emergency room for further evaluation. In the ER he was felt she may have had a stroke as her left side was weak. However, imaging studies were negative. She also had dysuria along with fevers. Decision was made to admit the patient to the hospital for further evaluation. Most likely has a urinary tract infection. She will be treated with IV fluids and IV antibiotics. Anticipate discharge in a.m. Hospital Course: Pt is clinically doing well. Patient's clinical symptoms have improved. Plan to discharge on antibiotics. Continue with cefdinir x2 weeks. Outpatient follow-up with neurology and PCP in 1 to 2 weeks. At this time, patient is doing well and stable for discharge home. Vital Signs/Physical Exam: Temp Pulse Resp BP Pulse Ox 97.8 F 70 18 138/65 98 06/06/22 04:00 06/06/22 04:00 06/06/22 04:00 06/06/22 04:00 06/06/22 04:00 General: Alert, In no apparent distress, Oriented x3 Laboratory Data at Discharge: WBC 7.20 K/uL (4.3-10.9) 06/06/22 03:46 Hgb 11.9 g/dL (12.0-15.0) L 06/06/22 03:46 Hct 36.2 % (36.0-45.0) 06/06/22 03:46 Plt Count 173 K/uL (152-406) 06/06/22 03:46 PT 10.9 SECONDS (9.5-12.5) 06/05/22 09:25 INR 0.99 06/05/22 09:25 Sodium 136 mmol/L (136-145) 06/06/22 03:46 Potassium 3.7 mmol/L (3.5-5.1) 06/06/22 03:46 BUN 21 mg/dL (7-18) H 06/06/22 03:46 Creatinine 1.04 mg/dL (0.55-1.02) H 06/06/22 03:46 Glucose 209 mg/dL (74-106) H 06/06/22 03:46 Magnesium 2.0 mg/dL (1.6-2.4) 06/06/22 03:46 Total Bilirubin 0.6 mg/dL (0.2-1.0) 06/06/22 03:46 AST 23 U/L (15-37) 06/06/22 03:46 ALT 21 U/L (13-56) 06/06/22 03:46 Alkaline Phosphatase 63 U/L (45-117) 06/06/22 03:46 Triglycerides 116 mg/dL (<150) 06/05/22 10:23 Cholesterol 179 mg/dL (<200) 06/05/22 10:23 HDL Cholesterol 61 mg/dL (40-60) H 06/05/22 10:23 Cholesterol/HDL Ratio 2.93 06/05/22 10:23 Home Medications: Cefdinir [Cefdinir*] 300 mg PO BID #14 cap 06/05/22 New Medications: Cefdinir [Cefdinir*] 300 mg PO BID #14 cap Physician Discharge Instructions: -DC IV and DC home -Follow-up with PCP in 1 to 2 weeks -Follow-up with Neurology in 1 to 2 weeks -Please call Dr. Walker at [phone] if any questions regarding hospital stay -Please call nursing station at [phone] if any nursing or medication questions -Return to the emergency room if symptoms worsen Diet: AHA Activity: Fall precautions Followup: Leonardo Segovia DO [Primary Care Provider] - Time spent managing pt's care (in minutes): 35
--- NOTE | 2022-06-08 18:49 | EKG ---
Test Date: 2022-06-05 Test Time: 09:45:25 Payroll Tax Specialist: ALEXANDRU MEASUREMENT RESULTS: Intervals: Rate: 63 DC: 240 QRSD: 82 QT: 436 QTc: 446 [place]: P: 6 DC: 240 QRS: 4 T: 38 INTERPRETIVE STATEMENTS: Sinus rhythm with 1st degree AV block Otherwise normal ECG Compared to ECG 04/22/2022 11:02:52 Myocardial infarct finding no longer present Electronically Signed On 06-08-22 18:43:41 [employer] by Guero Marina
== END 2022-06-06 10:19 | disposition home or self-care (01) ==
LOC: ER 08:21 → ERHOLD 14:30 → 4TH 19:36
PROVIDERS: ADMIT Hospitalist; ATTEND Hospitalist
DX: N39.0 Urinary tract infection, site not specified (principal); R42 Dizziness and giddiness; R53.1 Weakness; E11.9 Type 2 diabetes mellitus without complications; I10 Essential (primary) hypertension; R30.0 Dysuria; R55 Syncope and collapse; Z20.822 Contact with and (suspected) exposure to COVID-19
CPT/HCPCS: 96365; 87088; 85025 ×2; 87086; 80048; 36415; 83735 ×2; 85610; 80061; 82565; 82947; 80076; 87077; 87186; 81003; 84484; 80053; 83880; 70496; 70498; 70450; 71045; 70551; 92610; 99285; 87811; Q9967; J0360; J1650; J7030 ×2; 93005; G0378

== ENCOUNTER 2022-12-11 17:48 | Emergency (ER) | payer MEDICARE ==
--- OUTSIDE RECORDS SUMMARY | 2022-12-11 17:54 | XMS REPORT | Continuity of Care Document ---
:1950 Author Organization [facility] t Address [address] [facility] [address] [place] [address] Care Team Providers Name Role Phone Mariah Mendoza Attending Clinician Jeanette Mayes Attending Clinician BENNY Attending Clinician Unavailable Davian Mathews Attending Clinician Gaby Diaz Attending Clinician Jess Bedoya Attending Clinician Aureliano_Erik Attending Clinician Unavailable Shield Attending Clinician Unavailable LETICIA_NATI Admitting Clinician Unavailable Tumthelma_Erik Admitting Clinician Unavailable Shield Admitting Clinician Unavailable Payers Payer Name Policy Type Policy Number Effective Date Expiration Date S jm FORMERLY [facility] [id number] 2021 (MEDICARE 00:00:00 REPLACEMENT HMO) UHC - MEDICARE [id number] COMPLETE (MEDICARE REPLACEMENT HMO) WELLCARE (MEDICARE [id number] 2019 REPLACEMENT/ADVANTA 00:00:00 GE - PPO) FORMERLY [facility] - [id number] MEDICARE SOLUTIONS - MEDICARE COMPLETE (MEDICARE REPLACEMENT PPO) Problems Condition Condition Condition Status Onset Resolution Last Treating Co mments Source Name Details Category Date Date Treatment Clinician Date Parental Parental Problem Active [place] anxiety Anxiety 8-28 da [facility] Type 2 Type 2 Problem Active [place] diabetes Diabetes 6-21 da mellitus Mellitus 00:00: [facility] Hyperlipid Hyperlipid Problem Active M [place] emia emia 6- da 00:00: [facility] Hypertensi Hypertensi Problem Active M jann ve ve 09-30 da disorder Disorder 00:00: [facility] [place] [facility] Chronic Chronic Problem Active Félix kidney Kidney 09-30 da disease Disease 00:00: [facility] [place] [facility] Hyperglyce Hyperglyce Problem Active M janetgor isabela due to isabela Due to 09-30 da type 2 Type 2 00:00: [facility] diabetes Diabetes 00 al mellitus Mellitus [facility] Program Allergies, Adverse Reactions, Alerts This patient has no known allergies or adverse reactions. Social History Smoking Status Start Date Stop Date Source Never Smoker [facility] Former Smoker [facility] Medications Ordered Filled Start [...] Source Name Name pneumococcal pneumococcal 2019-07-12 Completed [facility]rum polysaccharide PPV23 polysaccharide PPV23 12:56:41 [facility] influenza, trivalent, influenza, 2019-02-06 Completed [place] adjuvanted trivalent, 15:09:00 [facility] adjuvanted [facility] pneumococcal pneumococcal 2017-09-30 Completed Hyrum conjugate PCV 13 conjugate PCV 13 15:42:41 Ep iscopal [facility] Tdap Tdap 2017-09-30 Completed Hyrum 15:39:39 [facility] influenza, influenza, 2017-02-03 Completed Hy[facility] unspecified unspecified 00:00:00 [facility] formulation formulation Health Outre ach Program influenza, influenza, 2016-02-11 Completed Hyrum unspecified unspecified 00:00:00 [facility] formulation formulation Health [facility] ach Program Vital Signs Vital Name Observation Time Observation Value Comments Source BP Diastolic 2020-09-03 00:00:00 64 mm[Hg] [facility] Height 2020-09-03 00:00:00 59 [in_i] [place] [facility] BMI (Body Mass 2020-09-03 00:00:00 36.3 kg/m2 [place] 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 [facility] Index) Health Outreach Program BP Systolic 2020-09-03 00:00:00 112 mm[Hg] [place] [facility] Body Weight 2020-09-03 00:00:00 2873.6 [oz_av] [place] 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 [facility] BP Diastolic 2019-12-25 00:00:00 68 mm[Hg] [place] [facility] Height 2019-12-25 00:00:00 59 [in_i] [place] [facility] BMI (Body Mass 2019-12-25 00:00:00 37 kg/m2 [place] 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 [facility] Index) [facility] Outreach Program BP Systolic 2019-12-25 00:00:00 122 mm[Hg] [place] [facility] Body Weight 2019-12-25 00:00:00 2928 [oz_av] [place] [facility] BP Diastolic 2019-07-13 00:00:00 81 mm[Hg] [place] [facility] Height 2019-07-13 00:00:00 59 [in_i] [place] [facility] BMI (Body Mass 2019-07-13 00:00:00 38.1 kg/m2 [place] 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 [facility] Index) [facility] Program BP Systolic 2019-07-13 00:00:00 162 mm[Hg] [place] [facility] Body Weight 2019-07-13 00:00:00 188.4 [lb_av] [place] [facility] BP Diastolic 2019-07-12 00:00:00 68 mm[Hg] [place] [facility] Height 2019-07-12 00:00:00 59 [in_i] [place] [facility] BMI (Body Mass 2019-07-12 00:00:00 37.7 kg/m2 [place] 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 [facility] Index) [facility] Outreach Program BP Systolic 2019-07-12 00:00:00 122 mm[Hg] [place] [facility] Body Weight 2019-07-12 00:00:00 186.8 [lb_av] [place] [facility] BP Diastolic 2019-05-17 00:00:00 74 mm[Hg] [place] [facility] Height 2019-05-17 00:00:00 59 [in_i] [place] [facility] BMI (Body Mass 2019-05-17 00:00:00 38.6 kg/m2 [place] 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 [facility] Index) [facility] Outreach Program BP Systolic 2019-05-17 00:00:00 138 mm[Hg] [facility] Body Weight 2019-05-17 00:00:00 191.2 [lb_av] [place] [facility] BP Diastolic 2019-03-20 00:00:00 66 mm[Hg] [facility] Height 2019-03-20 00:00:00 59 [in_i] [place] [facility] BMI (Body Mass 2019-03-20 00:00:00 37.4 kg/m2 [place] 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 [facility] Index) [facility] Outreach Program BP Systolic 2019-03-20 00:00:00 108 mm[Hg] [facility] Body Weight 2019-03-20 00:00:00 185.1 [lb_av] [place] [facility] BP Diastolic 2019-02-06 00:00:00 62 mm[Hg] [place] [facility] Height 2019-02-06 00:00:00 59 [in_i] [place] [facility] BMI (Body Mass 2019-02-06 00:00:00 38.6 kg/m2 [place] 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 [facility] Index) [facility] Outreach Program BP Systolic 2019-02-06 00:00:00 116 mm[Hg] [place] [facility] Body Weight 2019-02-06 00:00:00 191 [lb_av] [place] [facility] BP Diastolic 2018-12-05 00:00:00 80 mm[Hg] [place] [facility] Height 2018-12-05 00:00:00 59 [in_i] [place] [facility] BMI (Body Mass 2018-12-05 00:00:00 38.1 kg/m2 [place] 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 [facility] Index) [facility] Outreach Program BP Systolic 2018-12-05 00:00:00 138 mm[Hg] [place] [facility] Body Weight 2018-12-05 00:00:00 188.8 [lb_av] [place] [facility] BP Diastolic 2018-06-09 00:00:00 71 mm[Hg] [facility] Height 2018-06-09 00:00:00 59 [in_i] [facility] BMI (Body Mass 2018-06-09 00:00:00 38.4 kg/m2 [place] 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 Medical Index) Group BP Systolic 2018-06-09 00:00:00 138 mm[Hg] [facility] Body Weight 2018-06-09 00:00:00 3040 [oz_av] [facility] Procedures Procedure Date / Time Performing Clinician Source Performed MAMMO, screening, 2019-07-12 00:00:00 Hyrum [facility] digital, bilateral Health Outrea ch Program ELECTROCARDIOGRAM, 2019-07-12 00:00:00 [facility] COMPLETE Health Outreach Program DXA BONE DENSITY, AXIAL 2019-07-12 00:00:00 Bhatia jp [facility] Screening for Malignant 2018-06-28 00:00:00 Bhatia jp [facility] Neoplasm of Colon Health Outreac [facility] Program Partial Hysterectomy [facility] Plan of Care Planned Activity Planned Date Details Comments Source Future Scheduled Test 2020-10-03 HbA1c (hemoglobin [place] [facility] 00:00:00 A1c), blood [code Health Out reach = HbA1c Program (hemoglobin A1c), blood] Future Scheduled Test 2020-10-03 CBC w/ diff [code [facility] [place] [facility] 00:00:00 = CBC w/ diff] Health Outrea ch Program Future Scheduled Test 2020-10-03 CMP, serum or [place] [facility] 00:00:00 plasma [code = Health Outrea ch CMP, serum or Program plasma] Future Scheduled Test 2020-10-03 lipid panel, blood [facility] 00:00:00 [code = lipid Health Outreac h panel, blood] Program Future Scheduled Test 2020-10-03 microalbumin/creat [facility] 00:00:00 inine, mass ratio, Health Ou tre[place] urine [code = Program microalbumin/creat inine, mass ratio, urine] Future Scheduled Test 2020-10-03 TSH, [place] 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 [facility]idi 00:00:00 ultra-sensitive, Health Outr each serum [code = TSH, Program ultra-sensitive, serum] Diagnostic Test 2020-09-03 urinalysis, [facility] Ep iscopal Pending 00:00:00 dipstick [code = Health Outr each urinalysis, Program dipstick] Instructions [facility] Encounters Start End Encounter Admission Attending Care Care Encounter Source Date/Time Date/Time Type Type Clinicians Facility Department ID 2022-12-07 2022-12-07 Care Mariah 2.16.840. 2.16.840.1. CLAC [id number] [facility] 20:30:00 21:00:00 Coordinati Reji [id number]. [id number]. [id number] Medical on Non [id number] Billable [id number] 2022-11-26 2022-11-26 Care Mariah 2.16.840. 2.16.840.1. CLAC [id number] [facility] 21:00:00 21:30:00 Coordinati Reji [id number]. [id number]. 4FS Medical on Non [id number] Billable [id number] 2022-10-09 2022-10-09 Care Crystelle 2.16.840. 2.16.840.1. CL [id number] [facility] 14:00:00 14:30:00 OnDebritt Sugey [id number]. [id number]. A9F Medical [id number] 2022-10-06 2022-10-06 DMG Mariah 2.16.840. 2.16.840.1. CLAC [id number] [facility] 21:00:00 21:30:00 Diabetes Reji [id number]. 764701.4.6. 9WU Medical Follow Up [id number] 2022-08-17 2022-08-17 [facility]patient [facility] 100 [id number] [place] 00:00:00 00:00:00 KAREN [id number] da [facility] Program 2022-07-24 2022-07-24 DM Mariah 2.16.840. 2.16.840.1. CLAC [id number] [facility] 20:00:00 21:00:00 Diabetes Reji [id number]. 074245.4.6. WSA Medical Initial [id number] 2022-07-01 2022-07-01 CAV Davian Mathews 2.16.840. 2.16.840.1. [id number] [facility] 18:00:00 19:00:00 [id number]. 634037.4.6. 6RE Medical [id number] 2022-05-07 2022-05-07 Care Gaby 2.16.840. 2.16.840.1. CLA [id number] [facility] 20:00:00 20:30:00 OnMelisa Diaz 1.481563. 433396.4.6. Y6E Medical [id number] 2022-02-27 2022-02-27 CAV Jess 2.16.840. 2.16.840.1. CLAC [id number] [facility] 22:00:00 23:00:00 [place] [id number]. 633027.4.6. Y2F Medical [id number] 2022-02-27 2022-02-27 Outpatient Tumelson_A DMG DM [id number] [facility] 00:00:00 00:00:00 [id number] Medica l Group 2022-02-17 2022-02-17 Outpatient [facility]_A DMG DM [id number] [facility] 00:00:00 00:00:00 [id number] Medica l Group 2022-01-29 2022-01-29 Outpatient Tumelson_A DMG DM [id number] [facility] 00:00:00 00:00:00 [id number] Medica l Group 2021-10-24 2021-10-24 Outpatient DMG DM [id number] [facility] 03:54:00 03:54:00 [id number] Medica l Group 2021-08-27 2021-08-27 Outpatient DMG DM [id number] [facility] 12:00:00 12:00:00 [id number] Medica l Group 2021-03-26 2021-03-26 Outpatient AMBREEN_[facility] 100 [id number] [place] 12:00:00 12:00:00 HANA 11809 [facility] 2021-03-17 2021-03-17 Outpatient AMBREEN_[facility] 100 [id number] [place] 12:03:00 12:03:00 HANA [id number] [facility] 2021-03-10 2021-03-10 Outpatient AMBREEN_[facility] 100 [id number] [place] 11:10:00 11:10:00 KAREN [id number] [facility] 2021-01-28 2021-01-28 Outpatient AMBREEN_[facility] 100 [id number] [place] 09:07:00 09:07:00 HANA [id number] [facility] 2021-01-27 2021-01-27 Outpatient AMBREEN_[facility] 100 [id number] [place] 04:35:00 04:35:00 HANA [id number] [facility] 2021-01-16 2021-01-16 Outpatient AMBREEN_[facility] 100 [id number] [place] 11:22:00 11:22:00 HANA [id number] [facility] 2020-12-19 2020-12-19 Outpatient AMBREEN_[facility] 100 [place] 09:14:00 09:14:00 HANA [id number] [facility] 2020-11-14 2020-11-14 Outpatient AMBREEN_[facility] ME[facility]OP 100 [place] 02:58:00 02:58:00 HANA [id number] [facility] 2020-09-05 2020-09-05 Outpatient AMBREEN_[facility] ME[facility]OP 100 [place] 10:55:00 10:55:00 HANA [id number] [facility] 2020-09-04 2020-09-04 Outpatient AMBREEN_[facility]OP IAHOP 100 [place] 08:23:00 08:23:00 HANA [id number] [facility] 2020-09-03 2020-09-03 Outpatient AMBREEN_[facility] 100 [place] 04:35:00 04:35:00 HANA [id number] [facility] 2020-09-03 2020-09-03 [facility] - [id number] at[place]or 00:00:00 00:00:00 Sayda Kelly MD: [id number] Y[facility] Epis ad copy writer [place] [address] [facility] [address], [facility] Program [phone] , Ph. 2020-08-27 2020-08-27 Outpatient AMBREEN_[facility] I[facility]OP 100 [place] 03:50:00 03:50:00 HANA 17903 [facility] 2020-08-19 2020-08-19 Outpatient AMBREEN_[facility] IAHOP 100 [place] 03:28:00 03:28:00 HANA [id number] [facility] 2020-08-18 2020-08-18 Outpatient AMBREEN_[facility] 100 [id number] [place] 08:51:00 08:51:00 HANA [id number] [facility] 2020-08-15 2020-08-15 Outpatient [facility]EN_[facility] 100 [id number] [place] 02:15:00 02:15:00 HANA [id number] [facility] 2020-08-13 2020-08-13 Outpatient AM[facility]EN_[facility] 100 [id number] [place] 11:18:00 11:18:00 HANA [id number] [facility] 2020-07-25 2020-07-25 Outpatient AMBREEN_[facility] 100 [id number] [place] 05:16:00 05:16:00 HANA [id number] [facility] 2020-07-25 2020-07-25 Outpatient AMBREEN_[facility] ME[facility] 100 [id number] [place] 01:02:00 01:02:00 KAREN 14751 [facility] 2020-02-28 2020-02-28 Outpatient Shield MMG MMG [id number] [place] 02:48:00 02:48:00 1118 da Medical Group 2020-01-31 2020-01-31 Outpatient AMBREEN_[facility] 100 [id number] [place] 01:02:00 01:02:00 KAREN [id number] [facility] 2019-12-26 2019-12-26 Outpatient AMBREEN_[facility] 100 [id number] [place] 11:01:00 11:01:00 KAREN [id number] [facility] 2019-12-25 2019-12-25 Outpatient [facility] 100 [id number] [place] 12:00:00 12:00:00 HANA [id number] [facility] 2019-12-25 2019-12-25 [facility] [place] - [id number] M [place] 00:00:00 00:00:00 Sayda Kelly MD: 1700 [facility] - MEHOP al [address], [place], [place] Outre [address] h , Ph. Program 2019-09-30 2019-09-30 Outpatient AMBREEN_[facility] ME[facility]OP 100 186- [place] 11:10:00 11:10:00 HANA [id number] [facility] 2019-09-14 2019-09-14 Outpatient AMBREEN_[facility] ME[facility]OP 100 186 [place] 04:26:00 04:26:00 HANA [id number] [facility] 2019-08-08 2019-08-08 Outpatient AMBREEN_[facility] MEHOP 100 [place] 02:35:00 02:35:00 HANA [id number] [facility] 2019-07-13 2019-07-13 Outpatient AMBREEN_[facility] MEHOP 100 [place] 03:22:00 03:22:00 HANA [id number] [facility] 2019-07-13 2019-07-13 Palmer Leola [facility] [place] - [id number] [place] 00:00:00 00:00:00 Sayda Guan MD: [id number] Yazidi Epis ad copy writer [place] HOP - [facility], [facility], [facility] Program [phone] , Ph. 2019-07-12 2019-07-12 Outpatient AMBREEN_[facility]AR [facility] IAHOP 100 [place] 03:26:00 03:26:00 HANA [id number] [facility] 2019-07-12 2019-07-12 [facility] [place] [facility] [id number] M [place] 00:00:00 00:00:00 Sayda Kelly MD: 1700 Y[facility] [place] Outre [address] h , Ph. Program 2019-05-17 2019-05-17 Outpatient AMBREEN_[facility]AR [facility] IAHOP 100 [place] 05:34:00 05:34:00 HANA [id number] [facility] 2019-05-17 2019-05-17 [facility] [place] - [id number] M at[place]or 00:00:00 00:00:00 Sayda Kelly MD: 1700 Y[facility] [address], [place] Outre [address] h , Ph. Program 2019-04-17 2019-04-17 Outpatient AMBREEN_[facility] 100 [id number] [place] 03:07:00 03:07:00 KAREN 47470 lynette [facility] 2019-03-20 2019-03-20 Nati [facility] - [id number] M at[place] 00:00:00 00:00:00 Sayda Kelly MD: 1700 Y[facility] [address], [place] Outre [address] h , Ph. Program 2019-02-06 2019-02-06 Nati [facility] - [id number] M at[place]or 00:00:00 00:00:00 Sayda Kelly MD: 1700 Y[facility] [address], [place] Outre [address] h , Ph. Program 2018-12-08 2018-12-08 Maryam Bob [facility] - [id number] [place] 00:00:00 00:00:00 Sayda Carrillo RN CLINICAL TRIALS: 1700 Yazidi Epis ad copy writer [facility] [address], [facility] Outre [address] h , Ph. Program (979) 2018-12-06 2018-12-06 Maryamerik Bob [facility] [place] - [id number] [place] 00:00:00 00:00:00 Sayda Carrillo RN CLINICAL TRIALS: 1700 Yazidi Epis ad copy writer [facility] [address], [facility] Outre [address] h , Ph. Program ([phone]) 2018-12-05 2018-12-05 Nati [facility] [place] - [id number] M at[place]or 00:00:00 00:00:00 Leticia, Hyrum da MD: 1700 Yazidi [facility] [place], [facility], [facility] [address] h , Ph. 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 Results Test Description Test Time [...] Blood (test code = Blood) - Specific Caldwell (test code = Specific Caldwell) 1.015 Ketone (test code = Ketone) - Bilirubin (test code = Bilirubin) - Glucose (test code = Glucose) 3+ Appearance (test code = Appearance) cloudy Color (test code = Color) yellow [facility] Outreach ProgramComprehensive metabolic 2000 panel - Serum or [id number] 00:00:00 Test Item Value Reference Range Interpretation [...] by Creatinine-based formula (CKD-EPI) (test code = 82548-2) Glomerular filtration 62 mL/min/1.73 >59 rate/1.73 sq M.predicted among blacks [Volume Rate/Area] in Serum, Plasma or Blood by Creatinine-based formula (CKD-EPI) (test code = 31406-4) Urea nitrogen/Creatinine [Mass 29 12-28 H Ratio] [...] mg/dL 8.7-10.3 or Plasma (test code = 30783-8) Protein [Mass/volume] in Serum 7.0 g/dL 6.0-8.5 or Plasma (test code = 2885-2) Albumin [Mass/volume] in Serum 4.4 g/dL 3.8-4.8 or Plasma (test code = 1751-7) Globulin [Mass/volume] in 2.6 g/dL 1.5-4.5 Serum by calculation (test code = 95842-5) Albumin/Globulin [Mass Ratio] 1.7 1.2-2.2 in Serum [...] Serum or Plasma (test code = 1742-6) [facility] Outreach [facility] W Auto Differential panel - Blood 2019-12-06 [...] = 706-2) immature cells (test code = nonprofit manager immature cells) Neutrophils [#/volume] in Blood 3.0 [...] Blood by Automated count (test code = 22317-3) Immature granulocytes 0.0 x10e3/uL 0.0-0.1 [#/volume] in Blood by Automated count (test code = 74916-4) Nucleated erythrocytes/100 nonprofit manager leukocytes [Ratio] in Blood by Automated count (test code = 23246-2) Morphology [Interpretation] in nonprofit manager Blood Narrative (test code = 41282-3) [facility], [id number] 00:00:00 Test Item Value Reference Range Interpretation [...] or Plasma by calculation (test code = 18356-0) Cholesterol in LDL [Mass/volume] in 101 mg/dL 0-99 H Serum or Plasma by calculation (test code = 89135-2) Laboratory comment [Text] in Report nonprofit manager Narrative (test code = 21119-2) Cholesterol.total/Cholesterol.in 2.9 ratio 0.0-4.4 HDL [Mass ratio] in Serum or Plasma (test code = 9830-1) Cholesterol in LDL/Cholesterol in 1.4 ratio 0.0-3.2 HDL [Mass Ratio] in Serum or Plasma (test code = 64180-3) [facility], [id number] 00:00:00 Test Item Value Reference Range Interpretation Comments interpretation (test code = note interpretation) pdf (test code = pdf) not applicable [facility] CKD [id number] 00:00:00 Test Item Value Reference Range Interpretation Comments interpretation (test code = note interpretation) pdf (test code = pdf) . [facility] patient [id number] 00:00:00 Test Item Value Reference Range Interpretation Comments pdf (test code = pdf) not applicable [facility] CampusHemoglobin A1c/Hemoglobin.total in [id number] 00:00:00 Test Item Value Reference Range Interpretation Comments Hemoglobin A1c/Hemoglobin.total in 13.4 % 4.8-5.6 H Blood (test code = 4548-4) [facility] CampusHepatitis C virus Ab Signal/Cutoff in Serum or Plasma by [id number] 00:00:00 Test Item Value Reference Range Interpretation Comments Hepatitis C virus Ab Signal/Cutoff in <0.1 0.0-0.9 Serum or Plasma by Immunoassay (test code = 02401-6) [facility]Com[facility] 2000 panel - Serum or [id number] 00:00:00 Test Item Value Reference Range Interpretation [...] (test code = 5-0) Carbon dioxide, total 19 mmol/L 20-29 L [Moles/volume] in Serum or Plasma (test code = 2027-) Calcium [Mass/volume] in Serum 9.8 mg/dL 8.7-10.3 or Plasma (test code = 26215-2) Protein [Mass/volume] in Serum 6.9 g/dL 6.0-8.5 or Plasma (test code = 2885-2) Albumin [Mass/volume] in Serum 4.3 g/dL 3.8-4.8 or Plasma (test code = 1751-7) Globulin [Mass/volume] in 2.6 g/dL 1.5-4.5 Serum by calculation (test code = 70645-0) Albumin/Globulin [Mass Ratio] 1.7 1.2-2.2 in Serum [...] Serum or Plasma (test code = 1742-6) [facility] CKD [id number] 00:00:00 Test Item Value Reference Range Interpretation Comments interpretation (test code = note interpretation) pdf image (test code = pdf image) . [facility] ProgramComprehensive metabolic 2000 panel - Serum or [id number] 00:00:00 Test Item Value Reference Range Interpretation [...] mg/dL 8.7-10.3 or Plasma (test code = 30057-5) Protein [Mass/volume] in Serum 6.9 g/dL 6.0-8.5 or Plasma (test code = 2885-2) Albumin [Mass/volume] in Serum 4.3 g/dL 3.8-4.8 or Plasma (test code = 1751-7) Globulin [Mass/volume] in 2.6 g/dL 1.5-4.5 Serum by calculation (test code = 45144-7) Albumin/Globulin [Mass Ratio] 1.7 1.2-2.2 in Serum [...] Serum or Plasma (test code = 1742-6) [facility] CKD [id number] 00:00:00 Test Item Value Reference Range Interpretation Comments interpretation (test code = note interpretation) pdf image (test code = pdf image) . [facility] CampusComprehensive metabolic 2000 panel - Serum or [id number] 00:00:00 Test Item Value Reference Range Interpretation [...] (test code = 5-0) Carbon dioxide, total 21 mmol/L 20-29 [Moles/volume] in Serum or Plasma (test code = 8-9) Calcium [Mass/volume] in Serum 9.9 mg/dL 8.7-10.3 or Plasma (test code = 78220-3) Protein [Mass/volume] in Serum 7.3 g/dL 6.0-8.5 or Plasma (test code = 2885-2) Albumin [Mass/volume] in Serum 4.4 g/dL 3.6-4.8 or Plasma (test code = 1751-7) Globulin [Mass/volume] in 2.9 g/dL 1.5-4.5 Serum by calculation (test code = 18689-5) Albumin/Globulin [Mass Ratio] 1.5 1.2-2.2 in Serum or Plasma (test code = 1759-0) Bilirubin.total [Mass/volume] 0.6 mg/dL 0.0-1.2 in Serum or Plasma (test code = 1975-2) Alkaline phosphatase 93 IU/L 39-117 [Enzymatic activity/volume] in Serum or Plasma (test code = 6768-6) Aspartate aminotransferase 25 IU/L 0-40 [Enzymatic activity/volume] in Serum or Plasma (test code = 1920-8) Alanine aminotransferase 17 IU/L 0-32 [Enzymatic activity/volume] in Serum or Plasma (test code = 1742-6) [facility] - [facility] or Plasma 2019-04-19 [...] or Plasma by calculation (test code = 28296-3) Cholesterol in LDL [Mass/volume] in 98 mg/dL 0-99 Serum or Plasma by calculation (test code = 37474-2) comment: (test code = comment:) nonprofit manager [facility], [id number] 00:00:00 Test Item Value Reference Range Interpretation Comments interpretation (test code = note interpretation) pdf image (test code = pdf not applicable image) [facility] CKD [id number] 00:00:00 Test Item Value Reference Range Interpretation Comments interpretation (test code = note interpretation) pdf image (test code = pdf image) . [facility] [id number] 00:00:00 Test Item Value Reference Range Interpretation Comments pdf image (test code = pdf not applicable image) [facility]em[facility] A1c/Hemoglobin.total in [id number] 00:00:00 Test Item Value Reference Range Interpretation Comments Hemoglobin A1c/Hemoglobin.total in 11.2 % 4.8-5.6 H Blood (test code = 4548-4) [facility] 2000 panel - Serum or [id number] 00:00:00 Test Item Value Reference Range Interpretation [...] code = 2028-9) Calcium [Mass/volume] in Serum 9.9 mg/dL 8.7-10.3 or Plasma (test code = 40632-5) Protein [Mass/volume] in Serum 7.3 g/dL 6.0-8.5 or Plasma (test code = 2885-2) Albumin [Mass/volume] in Serum 4.4 g/dL 3.6-4.8 or Plasma (test code = 1751-7) Globulin [Mass/volume] in 2.9 g/dL 1.5-4.5 Serum by calculation (test code = 12003-8) Albumin/Globulin [Mass Ratio] 1.5 1.2-2.2 in Serum or Plasma (test code = 1759-0) Bilirubin.total [Mass/volume] 0.6 mg/dL 0.0-1.2 in Serum or Plasma (test code = 1975-2) Alkaline phosphatase 93 IU/L 39-117 [Enzymatic activity/volume] in Serum or Plasma (test code = 6768-6) Aspartate aminotransferase 25 IU/L 0-40 [Enzymatic activity/volume] in Serum or Plasma (test code = 1920-8) Alanine aminotransferase 17 IU/L 0-32 [Enzymatic activity/volume] in Serum or Plasma (test code = 1742-6) [facility] 1996 [facility] - Serum or Plasma 2019-04-19 [...] or Plasma by calculation (test code = 92714-2) Cholesterol in LDL [Mass/volume] in 98 mg/dL 0-99 Serum or Plasma by calculation (test code = 05756-9) comment: (test code = comment:) 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 [facility] [id number] 00:00:00 Test Item Value Reference Range Interpretation Comments pdf image (test code = pdf not applicable image) [facility]Hemoglobin A1c/Hemoglobin.total in [id number] 00:00:00 Test Item Value Reference Range Interpretation Comments Hemoglobin A1c/Hemoglobin.total in 11.2 % 4.8-5.6 H Blood (test code = 4548-4) [facility] CKD [id number] 00:00:00 Test Item Value Reference Range Interpretation Comments interpretation (test code = note interpretation) pdf image (test code = pdf image) . [facility] patient [id number] 00:00:00 Test Item Value Reference Range Interpretation Comments pdf image (test code = pdf not applicable image) [facility] Program[facility] A1c/Hemoglobin.total in [id number] 00:00:00 Test Item Value Reference Range Interpretation Comments Hemoglobin A1c/Hemoglobin.total in 10.6 % 4.8-5.6 H Blood (test code = 4548-4) [facility] CKD [id number] 00:00:00 Test Item Value Reference Range Interpretation Comments interpretation (test code = note interpretation) pdf image (test code = pdf image) . [facility] patient [id number] 00:00:00 Test Item Value Reference Range Interpretation Comments pdf image (test code = pdf not applicable image) [facility] A1c/Hemoglobin.total in [id number] 00:00:00 Test Item Value Reference Range Interpretation Comments Hemoglobin A1c/Hemoglobin.total in 10.6 % 4.8-5.6 H Blood (test code = 4548-4) [facility] CKD [id number] 00:00:00 Test Item Value Reference Range Interpretation Comments interpretation (test code = note interpretation) pdf image (test code = pdf image) . [facility] patient [id number] 00:00:00 Test Item Value Reference Range Interpretation Comments pdf image (test code = pdf not applicable image) [facility] ProgramHemoglobin A1c/Hemoglobin.total in [id number] 00:00:00 Test Item Value Reference Range Interpretation Comments Hemoglobin A1c/Hemoglobin.total in 10.6 % 4.8-5.6 H Blood (test code = 4548-4) [facility] - Serum or [id number] 00:00:00 Test Item Value Reference Range Interpretation [...] mg/dL 8.7-10.3 or Plasma (test code = 27694-9) Protein [Mass/volume] in Serum 7.1 g/dL 6.0-8.5 or Plasma (test code = 2885-2) Albumin [Mass/volume] in Serum 4.3 g/dL 3.6-4.8 or Plasma (test code = 1751-7) Globulin [Mass/volume] in 2.8 g/dL 1.5-4.5 Serum by calculation (test code = 96426-6) Albumin/Globulin [Mass Ratio] 1.5 1.2-2.2 in Serum [...] Serum or Plasma (test code = 1742-6) [facility] ProgramMicroalbumin/Creatinine [Mass Ratio] in [id number] 00:00:00 Test Item Value Reference Range Interpretation Comments Creatinine [Mass/volume] in 55.3 mg/dL not estab. Urine (test code = 2161-8) Microalbumin [Mass/volume] in 10.6 ug/mL not estab. Urine (test code = 69268-3) Albumin/Creatinine [Mass 19.2 mg/g creat 0.0-30.0 ratio] in Urine (test code = 9318-7) [facility] ProgramCom[facility] metabolic 2000 panel - Serum or [id number] 00:00:00 Test Item Value Reference Range Interpretation [...] mg/dL 8.7-10.3 or Plasma (test code = 77289-7) Protein [Mass/volume] in Serum 7.1 g/dL 6.0-8.5 or Plasma (test code = 2885-2) Albumin [Mass/volume] in Serum 4.3 g/dL 3.6-4.8 or Plasma (test code = 1751-7) Globulin [Mass/volume] in 2.8 g/dL 1.5-4.5 Serum by calculation (test code = 41315-3) Albumin/Globulin [Mass Ratio] 1.5 1.2-2.2 in Serum [...] Serum or Plasma (test code = 1742-6) [facility] ProgramMicroalbumin/Creatinine [Mass Ratio] in [id number] 00:00:00 Test Item Value Reference Range Interpretation Comments Creatinine [Mass/volume] in 55.3 mg/dL not estab. Urine (test code = 2161-8) Microalbumin [Mass/volume] in 10.6 ug/mL not estab. Urine (test code = 00943-7) Albumin/Creatinine [Mass 19.2 mg/g creat 0.0-30.0 ratio] in Urine (test code = 9318-7) [facility] ProgramCom[facility] 2000 panel - Serum or [id number] 00:00:00 Test Item Value Reference Range Interpretation [...] mg/dL 8.7-10.3 or Plasma (test code = 28929-8) Protein [Mass/volume] in Serum 7.1 g/dL 6.0-8.5 or Plasma (test code = 2885-2) Albumin [Mass/volume] in Serum 4.3 g/dL 3.6-4.8 or Plasma (test code = 1751-7) Globulin [Mass/volume] in 2.8 g/dL 1.5-4.5 Serum by calculation (test code = 34913-5) Albumin/Globulin [Mass Ratio] 1.5 1.2-2.2 in Serum [...] Serum or Plasma (test code = 1742-6) [facility] ProgramMicroalbumin/Creatinine [Mass Ratio] in [id number] 00:00:00 Test Item Value Reference Range Interpretation Comments Creatinine [Mass/volume] in 55.3 mg/dL not estab. Urine (test code = 2161-8) Microalbumin [Mass/volume] in 10.6 ug/mL not estab. Urine (test code = 93039-8) Albumin/Creatinine [Mass 19.2 mg/g creat 0.0-30.0 ratio] in Urine (test code = 9318-7) [facility]
[2022-12-11 18:38] LABS: Absolute Lymphocytes (CBC) 3.5 K/uL (0.7-4.9); Hematocrit 39.5 % (36.0-45.0); Lymphocytes % 50.4 % (15.3-44.8); MCV 89.1 fL (80-100); MPV 8.8 fL (7.6-11.3); Platelets 178 thou/uL (152-406); RBC Red Blood Cell Count 4.44 M/uL (3.86-4.86)
[2022-12-11] MEDS ORDERED: NA CHLORIDE 0.9% 500 ML ONE (18:48)
[2022-12-11] MEDS ORDERED: MECLIZINE HCL 12.5 MG TAB ONE (18:48)
[2022-12-11 18:51] LABS: Protime INR 0.97
[2022-12-11 18:56] LABS: Magnesium 2.1 mg/dL (1.6-2.4); Potassium 4.2 mEq/L (3.5-5.1); Troponin High Sensitivity 6.9 pg/mL (<58.9)
--- NOTE | 2022-12-11 19:26 | RAD REPORT ---
EXAM DESCRIPTION: RAD - Chest Single View - 12/11/2022 6:56 pm CLINICAL HISTORY: dizzy Chest pain. COMPARISON: HEAD BRAIN W O CONTRAST dated 04/06/2011; HEAD BRAIN W O CONTRAST dated 10/18/2008Chest Si ngle View dated 06/05/2022; Chest Single View dated 04/22/2022; Chest Single View dated 03/04/2018 FINDINGS: Portable technique limits examination quality. The lungs are grossly clear. The heart is moderately enlarged. No displaced fractures. IMPRESSION: No acute intrathoracic process suspected.
--- NOTE | 2022-12-11 19:29 | RAD REPORT ---
EXAM DESCRIPTION: CT - Head Brain Wo Cont - 12/11/2022 7:03 pm CLINICAL HISTORY: DIZZINESS Headache, drowsiness, dizziness COMPARISON: Ct Stroke Brain Wo Cont dated 06/05/2022; Head angio dated 06/05/2022 TECHNIQUE: All CT scans are performed using dose optimization technique as appropriate and may inclu de automated exposure control or mA/KV adjustment according to patient size. FINDINGS: No intracranial hemorrhage, hydrocephalus or extra-axial fluid collection.No areas of brai n edema or evidence of midline shift. The paranasal sinuses and mastoids are clear. The calvarium is intact. IMPRESSION: No acute intracranial abnormality.
[2022-12-11 19:40] LABS: Specific Gravity 1.008 (1.005-1.030); Urine Bacteria None Seen /HPF (<20); Urine Bilirubin NEGATIVE (Negative); Urine Blood Negative (Negative); Urine Clarity Turbid (Clear); Urine Color Light-Yellow (Yellow); Urine Glucose NEGATIVE (Negative); Urine Mucus Slight /HPF (None Seen); Urine Protein NEGATIVE (Negative); Urine RBC <5 /HPF (None Seen); Urine Urobilinogen Normal (Normal); Urine pH 5.5 (5.0-7.0)
--- NOTE | 2022-12-11 20:14 | ER ---
Nurse's Notes [facility] Name: Caryl Watt Age: 72 yrs Sex: Female : 1950 Arrival Date: 12/11/2022 Time: 17:48 Bed 20 Private MD: Diagnosis: Vertigo Presentation: 12/11 17:59 Chief complaint: Patient states: Dizziness for 3 days, mostly when she turns her head. nj1 Getting worse, started on a cholesterol medicine and acid reflux medicine this week. Coronavirus screen: Vaccine status: Patient reports being unvaccinated. Ebola Screen: Patient denies travel to an Ebola-affected area in the 21 days before illness onset. Initial Sepsis Screen: Does the patient meet any 2 criteria? No. Patient's initial sepsis screen is negative. Does the patient have a suspected source of infection? No. Patient's initial sepsis screen is negative. Risk Assessment: Do you want to hurt yourself or someone else? Patient reports no desire to harm self or others. Onset of symptoms was December 09, 2022. 17:59 Method Of Arrival: Wheelchair nj 17:59 Acuity: KAYLENE 3 nj1 Triage Assessment: 20:36 Pain: Also complains of. ha1 Historical: - Allergies: 18:03 NKA; nj1 18:03 Strawberries; nj1 - PMHx: 18:03 Anxiety; Diabetes - IDDM; Hyperlipidemia; Hypertension; GERD; nj1 - PSHx: 18:03 Partial hysterectomy; Ligation of fallopian tube; nj1 - Immunization history:: Client reports receiving the 2nd dose of the Covid vaccine. - Social history:: Smoking status: Patient denies any tobacco usage or history of. - Family history:: not pertinent. - Hospitalizations: : No recent hospitalization is reported. Screenin:08 [facility] ED Fall Risk Assessment (Adult) History of falling in the last 3 months, mb9 including since admission No falls in past 3 months (0 pts) Confusion or Disorientation No (0 pts) Intoxicated or Sedated No (0 pts) Impaired Gait No (0 pts) Mobility Assist Device Used No (0 pt) Altered Elimination No (0 pt) Score/Fall Risk Level 0 - 2 = Low Risk Oriented to surroundings, Maintained a safe environment, Educated pt \T\ family on fall prevention, incl call for assistance when getting out of bed. Abuse screen: Denies threats or abuse. Nutritional screening: No deficits noted. Tuberculosis screening: No symptoms or risk factors identified. Assessment: 18:33 General: Appears in no apparent distress. Behavior is calm, cooperative. Pain: Denies mb9 pain. Neuro: Kaur Agitation-Sedation Scale (RASS): 0 - Alert and Calm Level of Consciousness is awake, alert, obeys commands, Oriented to person, place, time, situation, Appropriate for age Reports dizziness. Cardiovascular: Patient's skin is warm and dry. Respiratory: Airway is patent Respiratory effort is even, unlabored, Respiratory pattern is regular, symmetrical, Breath sounds are clear bilaterally. GI: Abdomen is round non-distended, Bowel sounds present X 4 quads. : No signs and/or symptoms were reported regarding the genitourinary system. Derm: Skin is pink, warm \T\ dry. Musculoskeletal: Range of motion: intact in all extremities. 18:50 Reassessment: pt taken to CT via wheelchair. mb9 19:38 Reassessment: Patient appears in no apparent distress at this time. Patient and/or nj1 family updated on plan of care and expected duration. Pain level reassessed. Patient is alert, oriented x 3, equal unlabored respirations, skin warm/dry/pink. Patient states symptoms have improved. Vital Signs: 17:59 BP 157 / 72; Pulse 66; Resp 18; Temp 98.2; Pulse Ox 99% ; Weight 83.91 kg; Height 4 ft. nj1 10 in. ; Pain 7/10; 19:38 BP 135 / 66; Pulse 67; Resp 17; Pulse Ox 98% ; nj1 20:37 BP 154 / 92; Pulse 66; Resp 16 S; Pulse Ox 98% on R/A; ha1 17:59 Body Mass Index 38.66 (83.91 kg, 147.32 cm) co1 17:59 Pain Scale: Adult [facility] ED Course: 17:54 Patient arrived in ED. im 18:03 Triage completed. nj1 18:04 Arm band placed on. co1 18:08 Sierra Tapia, YAIR is Primary Nurse. mb9 18:08 Placed in gown. Bed in low position. Call light in reach. Side rails up X 1. Client mb9 placed on continuous cardiac and pulse oximetry monitoring. NIBP monitoring applied. blender machine operator on. 18:08 No provider procedures requiring assistance completed. mb9 18:13 Demian Orta MD is Attending Physician. rn 18:25 Inserted saline lock: 22 gauge in right antecubital area, using aseptic technique. mb9 18:32 Basic Metabolic Panel Sent. mb9 18:32 CBC with Diff Sent. mb9 18:33 Magnesium Sent. mb9 18:33 Protime (+inr) Sent. mb9 18:33 Ptt, Activated Sent. mb9 18:33 Troponin High Sensitivity Sent. mb9 18:58 Chest Single View XRAY In Process Unspecified. EDMS 19:03 Report given to YAIR Logan. mb9 19:05 CT Head Brain wo Cont In Process Unspecified. EDMS 20:36 IV discontinued, intact, bleeding controlled, No redness/swelling at site. Pressure ha1 dressing applied. 20:38 Provided Education on: follow up. ha1 Administered Medications: 18:39 Drug: Meclizine PO 50 mg Route: PO; mb9 18:39 Drug: NS 0.9% IV 500 ml Route: IV; Rate: bolus; Site: right antecubital; mb9 Medication: 18:08 VIS not applicable for this client. mb9 Outcome: 20:13 Discharge ordered by MD. rn 20:36 Discharged to home via wheelchair. ha1 20:36 Condition: stable 20:36 Discharge instructions given to patient, family, Instructed on discharge instructions, follow up and referral plans. medication usage, Demonstrated understanding of instructions, follow-up care, medications, Prescriptions given X 1. 20:38 Patient left the ED. ha1 Signatures: Dispatcher [employer] EDFL Demian Orta MD MD rn Ayala, Heidy RN RN ha1 Sierra Tapia RN RN mb9 Doreen Saucedo, YAIR RN nj1 Saray Roberts Corrections: (The following items were deleted from the chart) 18:04 18:03 PSHx: Exploratory laparotomy; nj1 nj1
--- NOTE | 2022-12-11 20:14 | EDPHYS ---
Physician Documentation [facility] Name: Caryl Watt Age: 72 yrs Sex: Female : 1950 Arrival Date: 12/11/2022 Time: 17:48 Bed 20 Private MD: ED Physician Demian Orta HPI: 12/11 19:15 This 72 yrs old Female presents to ER via Wheelchair with complaints of rn Dizziness. 19:15 The patient presents with feeling off balance, vertigo. rn 19:15 Onset: The symptoms/episode began/occurred 3 day(s) ago. Modifying factors: The rn symptoms are alleviated by nothing, the symptoms are aggravated by movement of head, standing up, changing position. Severity of symptoms: At their worst the symptoms were moderate in the emergency department the symptoms have improved. The patient has experienced similar episodes in the past. Patient reports having dizziness and vertigo, has had vertigo numerous times before, feels identical. Denies recent illness. No head injury. No focal neurological complaint. Able to ambulate. No changes in medication.. Historical: - Allergies: 18:03 NKA; nj1 18:03 Strawberries; nj1 - PMHx: 18:03 Anxiety; Diabetes - IDDM; Hyperlipidemia; Hypertension; GERD; nj1 - PSHx: 18:03 Partial hysterectomy; Ligation of fallopian tube; nj1 - Immunization history:: Client reports receiving the 2nd dose of the Covid vaccine. - Social history:: Smoking status: Patient denies any tobacco usage or history of. - Family history:: not pertinent. - Hospitalizations: : No recent hospitalization is reported. ROS: 19:15 Constitutional: Negative for fever, chills, and weight loss, Eyes: Negative for injury, rn pain, redness, and discharge, Neck: Negative for injury, pain, and swelling, Cardiovascular: Negative for chest pain, palpitations, and edema, Respiratory: Negative for shortness of breath, cough, wheezing, and pleuritic chest pain, Abdomen/GI: Negative for abdominal pain, diarrhea, and constipation, MS/Extremity: Negative for injury and deformity, Skin: Negative for injury, rash, and discoloration, Neuro: Positive dizziness, negative for focal weakness or numbness, negative for seizure Exam: 19:15 Constitutional: This is a well developed, well nourished patient who is awake, alert, rn and in no acute distress. Head/Face: Normocephalic, atraumatic. Eyes: Pupils equal round and reactive to light, extra-ocular motions intact. Cardiovascular: Regular rate and rhythm. No pulse deficits. Respiratory: No increased work of breathing, no retractions or nasal flaring. Abdomen/GI: Soft, non-tender Skin: Warm, dry MS/ Extremity: Pulses equal, no cyanosis. Neuro: Awake and alert, GCS 15, oriented to person, place, time, and situation. Cranial nerves II-XII grossly intact. Motor strength 5/5 in all extremities. Sensory grossly intact. 20:10 ECG was reviewed by the Attending Physician. rn Vital Signs: 17:59 BP 157 / 72; Pulse 66; Resp 18; Temp 98.2; Pulse Ox 99% ; Weight 83.91 kg; Height 4 ft. nj1 10 in. ; Pain 7/10; 19:38 BP 135 / 66; Pulse 67; Resp 17; Pulse Ox 98% ; nj1 20:37 BP 154 / 92; Pulse 66; Resp 16 S; Pulse Ox 98% on R/A; ha1 17:59 Body Mass Index 38.66 (83.91 kg, 147.32 cm) nj1 17:59 Pain Scale: Adult nj1 MDM: 18:14 Patient medically screened. rn 20:12 Differential diagnosis: cardiac arrhythmia, CVA, generalized weakness, hypovolemia, rn idiopathic dizziness, TIA, vertigo. Data reviewed: vital signs, nurses notes, lab test result(s), EKG, radiologic studies, CT scan, and as a result, I will discharge patient. Counseling: I had a detailed discussion with the patient and/or guardian regarding the historical points, exam findings, and any diagnostic results supporting the discharge/admit diagnosis, lab results, radiology results, the need for outpatient follow up, to return to the emergency department if symptoms worsen or persist or if there are any questions or concerns that arise at home. Response to treatment: the patient's symptoms have markedly improved after treatment, and as a result, I will discharge patient. Special discussion: I discussed with the patient/guardian in detail that at this point there is no indication for admission to the hospital. It is understood, however, that if the symptoms persist or worsen the patient needs to return immediately for re-evaluation. ED course: Patient feels much better, several episodes of vertigo in the past, negative CT head and work-up here. Improved after meclizine. No focal neurological deficits on exam. Will DC home with as needed meclizine and neuro follow-up and given return precautions.. 12/11 18:15 Order name: Basic Metabolic Panel; Complete Time: 19:27 rn 12/11 18:15 Order name: CBC with Diff; Complete Time: 19:27 rn 12/11 18:15 Order name: Magnesium; Complete Time: :27 rn 12/11 18:15 Order name: Protime (+inr); Complete Time: 19:27 rn 12/11 18:15 Order name: Ptt, Activated; Complete Time: :27 rn 12/11 18:15 Order name: Troponin High Sensitivity; Complete Time: 19:27 rn 12/11 18:15 Order name: Urinalysis w/ reflexes; Complete Time: 19:59 rn 12/11 18:15 Order name: CT Head Brain wo Cont; Complete Time: 19:37 rn 12/11 18:15 Order name: Chest Single View XRAY; Complete Time: 19:37 rn 12/11 18:15 Order name: EKG; Complete Time: 18:16 rn 12/11 18:15 Order name: Cardiac monitoring; Complete Time: 18:32 rn 12/11 18:15 Order name: EKG - Nurse/Tech; Complete Time: 18:32 rn 12/11 18:15 Order name: IV Saline Lock; Complete Time: 18:32 rn 12/11 18:15 Order name: Labs collected and sent; Complete Time: 18:32 rn 12/11 18:15 Order name: O2 Per Protocol; Complete Time: 18:32 rn 12/11 18:15 Order name: O2 Sat Monitoring; Complete Time: 18:32 rn EC:10 Rate is 63 beats/min. Rhythm is regular. QRS [place] is Normal. LA interval is prolonged. rn QRS interval is normal. QT interval is normal. No Q waves. T waves are Normal. No ST changes noted. Clinical impression: 1st degree heart block. Interpreted by me. Reviewed by me. Administered Medications: 18:39 Drug: Meclizine PO 50 mg Route: PO; mb9 18:39 Drug: NS 0.9% IV 500 ml Route: IV; Rate: bolus; Site: right antecubital; mb9 Disposition Summary: 12/11/22 20:13 Discharge Ordered Location: Home rn Problem: new rn Symptoms: have improved rn Condition: Stable rn Diagnosis - Vertigo rn Followup: rn - With: Private Physician - When: As needed - Reason: Recheck today's complaints, Re-evaluation by your physician Discharge Instructions: - Discharge Summary Sheet rn - Vertigo rn Forms: - Medication Reconciliation Form rn - Thank You Letter rn - Antibiotic collections attorney - Prescription Opioid Use rn - Patient Portal Instructions rn - Leadership Thank You Letter rn Prescriptions: - Meclizine 25 mg Oral Tablet - take 1 tablet by ORAL route every 8 hours As needed; 30 tablet; Refills: 0, rn Product Selection Permitted Signatures: Dispatcher [employer] EDDemian Smyth MD MD rn Breneman, Sierra Swanson RN RN mb9 Doreen Saucedo RN RN nj1 Corrections: (The following items were deleted from the chart) 18:04 18:03 PSHx: Exploratory laparotomy; nj1 nj1
[2022-12-11 20:57] VITALS: TEMP 98.2
[2022-12-11 21:15] VITALS: O2SAT 98
[2022-12-11 21:16] VITALS: BP 154/92
--- NOTE | 2022-12-12 14:38 | EKG ---
Test Date: 2022-12-11 Test Time: 18:24:43 Draw String Knotter: MB MEASUREMENT RESULTS: Intervals: Rate: 63 MN: 250 QRSD: 90 QT: 426 QTc: 435 [place]: P: -15 MN: 250 QRS: -13 T: 70 INTERPRETIVE STATEMENTS: Sinus rhythm with 1st degree AV block Otherwise normal ECG Compared to ECG 06/05/2022 09:45:25 No significant changes Electronically Signed On 12-12-22 14:36:15 CDT by Guero Marina
== END 2022-12-11 20:38 | disposition home or self-care (01) ==
LOC: ER 17:48
DX: R42 Dizziness and giddiness (principal); E11.9 Type 2 diabetes mellitus without complications; I10 Essential (primary) hypertension; Z91.018 Allergy to other foods
CPT/HCPCS: 93005; 85025; 81001; 80048; 36415; 83735; 85610; 85730; 84484; 70450; 71045; 99285; J8597; J7040

== ENCOUNTER 2024-04-20 15:13 | Emergency (ER) | payer MEDICARE ==
--- OUTSIDE RECORDS SUMMARY | 2024-04-20 15:16 | XMS REPORT | Continuity of Care Document ---
Author Name Unknown Address [address] [place] [address] [facility] Address [address] [place] [address] Care Team Providers Care Manager Research Name Role Phone Jazmín Charles Attending Clinician [phone] Pili Cosme Attending Clinician [phone] Jessica Hyatt Attending Clinician Jamie Burkett Attending Clinician Mariah Mendoza Attending Clinician [phone] GC_GCBZW_Kadiyala_S Attending Clinician Unavaila Jeanette Jones Attending Clinician AMBREEN_MYRANDAA Attending Clinician Unavailable Davian Mathews Attending Clinician Gaby Diaz Attending Clinician Jess Bedoya Attending Clinician [phone] Tumthelma_A Attending Clinician Unavailable Shield Attending Clinician Unavailable GC_GCBZW_Kadiyala_S Admitting Clinician Unavaila ble AMBREEN_FARHANA Admitting Clinician Unavailable Tumelson_A Admitting Clinician Unavailable Shield Admitting Clinician Unavailable Payers Payer Name Policy Type Policy Number Effective Date Expirati on Date Source [facility] (MEDICARE REPLACEMENT HMO) [id number] 2021 00:00:00 [facility] - MEDICARE COMPLETE (MEDICARE REPLACEMENT HMO) [id number] [employer] (MEDICARE REPLACEMENT/[employer] GE - PPO) [id number] 2019 00:00:00 U[employer] - [employer]ARP - MEDICARE SOLUTIONS - MEDICARE COMPLETE (MEDICARE REPLACEMENT PPO) [id number] Problems Condition Name Condition Details Condition Category Status Onset Date Resolution Date Last Treatment Date Treating Clinician Comments Source Parental anxiety Parental Anxiety Problem Active 12-07 00:00: 00 [facility] [facility] Type 2 diabetes mellitus Type 2 Diabetes Mellitus Problem Active 09-30 00:00: 00 [facility] Hyperlipid emia Hyperlipid emia Problem Active 09-30 00:00: 00 [facility] Hypertensi ve disorder Hypertensi ve Disorder Problem Active 09-30 00:00: 00 [facility] Chronic kidney disease Chronic Kidney Disease Problem Active 09-30 00:00: 00 [facility] Hyperglyce isabela due to type 2 diabetes mellitus Hyperglyce isabela Due to Type 2 Diabetes Mellitus Problem Active 09-30 00:00: 00 [facility] Allergies, Adverse Reactions, Alerts Allergy Name Allergy Type Status Severity Reaction(s) Onset Date Inactive Date Treating Clinician Comments Source Rosuvast atin Drug Allergy Active [facility] Social History Smoking Status Start Date Stop Date Source Never Smoker [facility] Former Smoker [facility] Medications Ordered Medication Name Filled Medication Name Start Date Stop Date Current Medication? Ordering Clinician Indication Dosage Frequency Signature (SIG) Comments Components Source TRESIBA FLEXTOUCH 200 UNIT/ML SOLN PEN INJ TRESIBA FLEXTOUCH 200 UNIT/ML SOLN PEN INJ Yes [facility] BD PEN NEEDLE MINI U/F 31G X 5 MM MISC BD PEN NEEDLE MINI U/F 31G X 5 MM MISC Yes [facility] JARDIANCE 25 MG TABLET JARDIANCE 25 MG TABLET Yes [facility] rosuvastati n calcium 10 mg tablet rosuvastati n calcium 10 mg tablet Yes [facility] famotidine 20 mg tablet famotidine 20 mg tablet Yes [facility] OZEMPIC (1 MG/DOSE) 4 MG/3ML SOLN PEN INJ OZEMPIC (1 MG/DOSE) 4 MG/3ML SOLN PEN INJ Yes [facility] NOVOLOG FLEXPEN 100 UNIT/ML SOLN PEN INJ NOVOLOG FLEXPEN 100 UNIT/ML SOLN PEN INJ Yes [facility] fluconazole 150 mg tablet take one tab every 72 hrs x 3 fluconazole 150 mg tablet take one tab every 72 hrs x 3 No fluconazol e 150 mg tablet take one tab every 72 hrs x 3 [facility] fluticasone propionate 50 mcg/actuati on nasal spray,suspe nsion SPRAY 2 SPRAYS (50 - 100 MCG) IN EACH NOSTRIL BY INTRANASAL ROUTEONCE DAILY NEEDED fluticasone propionate 50 mcg/actuati on nasal spray,suspe nsion SPRAY 2 SPRAYS (50 - 100 MCG) IN EACH NOSTRIL BY INTRANASAL ROUTEONCE DAILY NEEDED No fluticason e propionate 50 mcg/actuat ion nasal spray,susp ension SPRAY 2 SPRAYS (50 - 100 MCG) IN EACH NOSTRIL BY INTRANASAL ROUTEONCE DAILY NEEDED [facility] gabapentin 100 mg capsule Take 1 capsule every day by oral route at bedtime. gabapentin 100 mg capsule Take 1 capsule every day by oral route at bedtime. No 1capsul e(s) Q1D gabapentin 100 mg capsule Take 1 capsule every day by oral route at bedtime. [facility] Program Jardiance 25 mg tablet TAKE 1 TABLET BY MOUTH EVERY DAY Jardiance 25 mg tablet TAKE 1 TABLET BY MOUTH EVERY DAY No Jardiance 25 mg tablet TAKE 1 TABLET BY MOUTH EVERY DAY [facility] Levemir FlexTouch U-100 Insulin 100 unit/mL (3 mL) subcutaneou s pen INJECT 75 UNIT(S) EVERY DAY BY SUBCUTANEOU S ROUTE. Levemir FlexTouch U-100 Insulin 100 unit/mL (3 mL) subcutaneou s pen INJECT 75 UNIT(S) EVERY DAY BY SUBCUTANEOU S ROUTE. No Levemir FlexTouch U-100 Insulin 100 unit/mL (3 mL) subcutaneo us pen INJECT 75 UNIT(S) EVERY DAY BY SUBCUTANEO US ROUTE. [facility] Program lisinopril 10 mg tablet TAKE 1 TABLET(S) EVERY DAY BY ORAL ROUTE. lisinopril 10 mg tablet TAKE 1 TABLET(S) EVERY DAY BY ORAL ROUTE. No lisinopril 10 mg tablet TAKE 1 TABLET(S) EVERY DAY BY ORAL ROUTE. [facility] Program milk thistle 175 mg tablet Take 1 tablet every day by oral route. milk thistle 175 mg tablet Take 1 tablet every day by oral route. No 1 Q1D milk thistle 175 mg tablet Take 1 tablet every day by oral route. [facility] Program Novolog Flexpen U-100 Insulin aspart 100 unit/mL (3 mL) subcutaneou s USE NOVOLOG PER SLIDING SCALE PROTOCOL. Novolog Flexpen U-100 Insulin aspart 100 unit/mL (3 mL) subcutaneou s USE NOVOLOG PER SLIDING SCALE PROTOCOL. No Novolog Flexpen U-100 Insulin aspart 100 unit/mL (3 mL) subcutaneo us USE NOVOLOG PER SLIDING SCALE PROTOCOL. [facility] One-A-Day Women's 50 Plus take 1 tablet by mouth once daily One-A-Day Women's 50 Plus take 1 tablet by mouth once daily No One-A-Day Women's 50 Plus take 1 tablet by mouth once daily [facility] atorvastati n 10 mg tablet TAKE 1 TABLET(S) EVERY DAY BY ORAL ROUTE. atorvastati n 10 mg tablet TAKE 1 TABLET(S) EVERY DAY BY ORAL ROUTE. No atorvastat in 10 mg tablet TAKE 1 TABLET(S) EVERY DAY BY ORAL ROUTE. [facility] ezetimibe 10 mg tablet ezetimibe 10 mg tablet Yes [facility] Bydureon BCise 2 mg/0.85 mL subcutaneou s auto-inject or Inject 2 mg every week by subcutaneou s route. Bydureon BCise 2 mg/0.85 mL subcutaneou s auto-inject or Inject 2 mg every week by subcutaneou s route. No 2mg Q1W Bydureon BCise 2 mg/0.85 mL subcutaneo us auto-injec tor Inject 2 mg every week by subcutaneo us route. [facility] Program carvedilol 6.25 mg tablet carvedilol 6.25 mg tablet Yes [facility] TRESIBA FLEXTOUCH 200 UNIT/ML SOLN PEN INJ TRESIBA FLEXTOUCH 200 UNIT/ML SOLN PEN INJ Yes [facility] BD PEN NEEDLE MINI U/F 31G X 5 MM MISC BD PEN NEEDLE MINI U/F 31G X 5 MM MISC Yes [facility] JARDIANCE 25 MG TABLET JARDIANCE 25 MG TABLET Yes [facility] rosuvastati n calcium 10 mg tablet rosuvastati n calcium 10 mg tablet Yes [facility] famotidine 20 mg tablet famotidine 20 mg tablet Yes [facility] JARDIANCE 25 MG TABLET JARDIANCE 25 MG TABLET Yes [facility] OZEMPIC (1 MG/DOSE) 4 MG/3ML SOLN PEN INJ OZEMPIC (1 MG/DOSE) 4 MG/3ML SOLN PEN INJ Yes [facility] NOVOLOG FLEXPEN 100 UNIT/ML SOLN PEN INJ NOVOLOG FLEXPEN 100 UNIT/ML SOLN PEN INJ Yes [facility] ezetimibe 10 mg tablet ezetimibe 10 mg tablet Yes [facility] carvedilol 6.25 mg tablet carvedilol 6.25 mg tablet Yes [facility] TRESIBA FLEXTOUCH 200 UNIT/ML SOLN PEN INJ TRESIBA FLEXTOUCH 200 UNIT/ML SOLN PEN INJ Yes [facility] BD PEN NEEDLE MINI U/F 31G X 5 MM MISC BD PEN NEEDLE MINI U/F 31G X 5 MM MISC Yes [facility] rosuvastati n calcium 10 mg tablet rosuvastati n calcium 10 mg tablet Yes [facility] losartan potassium 25 mg tablet losartan potassium 25 mg tablet Yes [facility] MOUNJARO 2.5 MG/0.5ML SOLN AUTO INJ MOUNJARO 2.5 MG/0.5ML SOLN AUTO INJ Yes [facility] NEXLETOL 180 MG TABLET NEXLETOL 180 MG TABLET Yes [facility] famotidine 20 mg tablet famotidine 20 mg tablet Yes [facility] JARDIANCE 10 MG TABLET JARDIANCE 10 MG TABLET Yes [facility] NOVOLOG FLEXPEN 100 UNIT/ML SOLN PEN INJ NOVOLOG FLEXPEN 100 UNIT/ML SOLN PEN INJ Yes [facility] carvedilol 6.25 mg tablet carvedilol 6.25 mg tablet Yes [facility] TRESIBA FLEXTOUCH 200 UNIT/ML SOLN PEN INJ TRESIBA FLEXTOUCH 200 UNIT/ML SOLN PEN INJ Yes [facility] BD PEN NEEDLE MINI U/F 31G X 5 MM MISC BD PEN NEEDLE MINI U/F 31G X 5 MM MISC Yes [facility] famotidine 20 mg tablet famotidine 20 mg tablet Yes [facility] losartan potassium 25 mg tablet losartan potassium 25 mg tablet Yes [facility] MOUNJARO 2.5 MG/0.5ML SOLN AUTO INJ MOUNJARO 2.5 MG/0.5ML SOLN AUTO INJ Yes [facility] BD PEN NEEDLE MINI U/F 31G X 5 MM MISC BD PEN NEEDLE MINI U/F 31G X 5 MM MISC Yes [facility] NEXLETOL 180 MG TABLET NEXLETOL 180 MG TABLET Yes [facility] JARDIANCE 10 MG TABLET JARDIANCE 10 MG TABLET Yes [facility] NOVOLOG FLEXPEN 100 UNIT/ML SOLN PEN INJ NOVOLOG FLEXPEN 100 UNIT/ML SOLN PEN INJ Yes [facility] carvedilol 6.25 mg tablet carvedilol 6.25 mg tablet Yes [facility] TRESIBA FLEXTOUCH 200 UNIT/ML SOLN PEN INJ TRESIBA FLEXTOUCH 200 UNIT/ML SOLN PEN INJ Yes [facility] OZEMPIC (1 MG/DOSE) 4 MG/3ML SOLN PEN INJ OZEMPIC (1 MG/DOSE) 4 MG/3ML SOLN PEN INJ Yes [facility] NOVOLOG FLEXPEN 100 UNIT/ML SOLN PEN INJ NOVOLOG FLEXPEN 100 UNIT/ML SOLN PEN INJ Yes [facility] ezetimibe 10 mg tablet ezetimibe 10 mg tablet Yes [facility] carvedilol 6.25 mg tablet carvedilol 6.25 mg tablet Yes [facility] amoxicillin 875 mg tablet Take 1 tablet every 12 hours by oral route for 7 days. amoxicillin 875 mg tablet Take 1 tablet every 12 hours by oral route for 7 days. No 1 Q12H amoxicilli n 875 mg tablet Take 1 tablet every 12 hours by oral route for 7 days. [facility] Jardiance Jardiance No Jardiance [facility] Levemir FlexTouch U-100 Insulin 100 unit/mL (3 mL) subcutaneou s pen Inject by subcutaneou s route. Levemir FlexTouch U-100 Insulin 100 unit/mL (3 mL) subcutaneou s pen Inject by subcutaneou s route. No Levemir FlexTouch U-100 Insulin 100 unit/mL (3 mL) subcutaneo us pen Inject by subcutaneo us route. [facility] Vital Signs Vital Name Observation Time Observation Value Comments S jm BP Diastolic 2020-09-03 00:00:00 64 mm[Hg] [place] Height 2020-09-03 00:00:00 59 [in_i] [place] BMI (Body Mass Index) 2020-09-03 00:00:00 36.3 kg/m2 [facility] BP Systolic 2020-09-03 00:00:00 112 mm[Hg] [facility] j[facility] Body Weight 2020-09-03 00:00:00 2873.6 [oz_av] [facility] BP Diastolic 2019-12-25 00:00:00 68 mm[Hg] [place] Height 2019-12-25 00:00:00 59 [in_i] [place] BMI (Body Mass Index) 2019-12-25 00:00:00 37 kg/m2 [facility] BP Systolic 2019-12-25 00:00:00 122 mm[Hg] [facility] Body Weight 2019-12-25 00:00:00 2928 [oz_av] [facility] BP Diastolic 2019-07-13 00:00:00 81 mm[Hg] [place] Height 2019-07-13 00:00:00 59 [in_i] [place] [facility] BMI (Body Mass Index) 2019-07-13 00:00:00 38.1 kg/m2 [facility] BP Systolic 2019-07-13 00:00:00 162 mm[Hg] [facility] Body Weight 2019-07-13 00:00:00 188.4 [lb_av] [place] [facility] BP Diastolic 2019-07-12 00:00:00 68 mm[Hg] [place] Height 2019-07-12 00:00:00 59 [in_i] [place] [facility] BMI (Body Mass Index) 2019-07-12 00:00:00 37.7 kg/m2 [facility] BP Systolic 2019-07-12 00:00:00 122 mm[Hg] [facility] Body Weight 2019-07-12 00:00:00 186.8 [lb_av] [place] [facility] BP Diastolic 2019-05-17 00:00:00 74 mm[Hg] [place] Height 2019-05-17 00:00:00 59 [in_i] [place] [facility] BMI (Body Mass Index) 2019-05-17 00:00:00 38.6 kg/m2 [facility] BP Systolic 2019-05-17 00:00:00 138 mm[Hg] [facility] Body Weight 2019-05-17 00:00:00 191.2 [lb_av] [facility] [place] [facility] BP Diastolic 2019-03-20 00:00:00 66 mm[Hg] [place] Height 2019-03-20 00:00:00 59 [in_i] [place] [facility] BMI (Body Mass Index) 2019-03-20 00:00:00 37.4 kg/m2 [facility] BP Systolic 2019-03-20 00:00:00 108 mm[Hg] [facility] Body Weight 2019-03-20 00:00:00 185.1 [lb_av] [facility] [place] [facility] BP Diastolic 2019-02-06 00:00:00 62 mm[Hg] [place] Height 2019-02-06 00:00:00 59 [in_i] [place] [facility] BMI (Body Mass Index) 2019-02-06 00:00:00 38.6 kg/m2 [facility] BP Systolic 2019-02-06 00:00:00 116 mm[Hg] [facility]ia j[facility] Body Weight 2019-02-06 00:00:00 191 [lb_av] [place] BP Diastolic 2018-12-05 00:00:00 80 mm[Hg] Joe mcintyrerda [facility] Height 2018-12-05 00:00:00 59 [in_i] [place] [facility] BMI (Body Mass Index) 2018-12-05 00:00:00 38.1 kg/m2 [facility] BP Systolic 2018-12-05 00:00:00 138 mm[Hg] Sriram quinteroa [facility] Body Weight 2018-12-05 00:00:00 188.8 [lb_av] Radha [facility] BP Systolic 2018-06-09 00:00:00 138 mm[Hg] [facility] Body Weight 2018-06-09 00:00:00 3040 [oz_av] [facility] BP Diastolic 2018-06-09 00:00:00 71 mm[Hg] [facility] Height 2018-06-09 00:00:00 59 [in_i] [facility] BMI (Body Mass Index) 2018-06-09 00:00:00 38.4 kg/m2 [facility] Procedures Procedure Date / Time Performed Performing Clinician Source MAMMO, screening, digital, bilateral 2019-07-12 00:00:00 [facility] ELECTROCARDIOGRAM, COMPLETE 2019-07-12 00:00:00 [facility] DXA BONE DENSITY, AXIAL 2019-07-12 00:00:00 [facility] Screening for Malignant Neoplasm of Colon 2018-06-28 00:00:00 [facility] Partial Hysterectomy [place] Plan of Care Planned Activity Planned Date Details Comments Source Future Scheduled Test 2020-10-03 00:00:00 HbA1c (hemoglobin A1c), blood [code = HbA1c (hemoglobin A1c), blood] [facility] Future Scheduled Test 2020-10-03 00:00:00 CBC w/ diff [code = CBC w/ diff] [facility] Future Scheduled Test 2020-10-03 00:00:00 CMP, serum or plasma [code = CMP, serum or plasma] [facility] Future Scheduled Test 2020-10-03 00:00:00 lipid panel, blood [code = lipid panel, blood] [facility] Future Scheduled Test 2020-10-03 00:00:00 microalbumin/creat inine, mass ratio, urine [code = microalbumin/creat inine, mass ratio, urine] [facility] Future Scheduled Test 2020-10-03 00:00:00 TSH, ultra-sensitive, serum [code = TSH, ultra-sensitive, serum] [facility] Diagnostic Test Pending 2020-09-03 00:00:00 urinalysis, dipstick [code = urinalysis, dipstick] [facility] Instructions [facility] Start Date/Time End Date/Time Encounter Type Admission Type Attending [facility] Care Department Encounter ID Source 2024-04-19 10:30:00 2024-04-19 11:00:00 Annual D2Me Jazmín Charles 2.16.840. [id number] 2.16.840.1. [id number] [facility] 2024-03-20 10:30:00 2024-03-20 11:10:00 Cardiovasc ular Risk Pharmacy Initial Assessment Pili MARIN DEV [id number] [facility] 2024-01-31 10:00:00 2024-01-31 10:30:00 Care [facility] Jessica Caccamise 2.16.840. [id number] 2.16.840.1. [id number] [facility] 2023-12-15 09:00:00 2023-12-15 09:30:00 In-Home Aeroplane Pilot Assessment Jamie MARIN DEV CLACXZKUFK YAE [facility] 2023-10-25 16:00:00 2023-10-25 16:30:00 DMG Diabetes Follow Up Mariah Mendoza 2.16.840. [id number] 2.16.840.1. [id number] [id number] [facility] 2023-02-06 00:00:00 2023-02-06 00:00:00 Outpatient GC_GCBZW_Ka divictor ma_S [facility] [id number] [facility] 2022-12-07 20:30:00 2022-12-07 21:00:00 Care Coordinati on Non Billable Mariah Mendoza 2.16.840. [id number] 2.16.840.1. [id number] [facility] 2022-11-26 21:00:00 2022-11-26 21:30:00 Care Coordinati on Non Billable Mariah Mendoza 2.16.840. [id number] 2.16.840.1. [id number] 4FS [facility] 2022-10-09 14:00:00 2022-10-09 14:30:00 Care [employer] Crystelle Sugey 2.16.840. [id number]. [id number] 2.16.840.1. [id number]. [id number] [facility] 2022-10-06 21:00:00 2022-10-06 21:30:00 DMG Diabetes Follow Up Mariah Mendoza 2.16.840. [id number] [id number] 2.16.840.1. [id number] [facility] 2022-08-17 00:00:00 2022-08-17 00:00:00 Outpatient JULI SCHNEIDERHOP [id number] [facility] 2022-07-24 20:00:00 2022-07-24 21:00:00 DMG Diabetes Initial Mariah Reji 2.16.840. [id number]. [id number] 2.16.840.1. [id number] WSA [facility] 2022-07-01 18:00:00 2022-07-01 19:00:00 CAV Davian العراقيb 2.16.840. [id number]. [id number] 2.16.840.1. [id number]. [id number] 6RE [facility] 2022-05-07 20:00:00 2022-05-07 20:30:00 Care Jason Gaby Joe 2.16.840. [id number] [id number] 2.16.840.1. [id number] [facility] 2022-02-27 22:00:00 2022-02-27 23:00:00 CAV Jess Bedoya 2.16.840. [id number]. 4.6.47450 [id number] 2.16.840.1. [id number]. [id number] [facility] 2022-02-27 00:00:00 2022-02-27 00:00:00 Outpatient Tumelson_A DMG DMG [id number] [facility] 2022-02-17 00:00:00 2022-02-17 00:00:00 Outpatient Tumelson_A DMG DMG [id number] [facility] 2022-01-29 00:00:00 2022-01-29 00:00:00 Outpatient Tumelson_A DMG DMG [id number] [facility] 2021-10-24 03:54:00 2021-10-24 03:54:00 Outpatient DMG DM [id number] [facility] 2021-08-27 12:00:00 2021-08-27 12:00:00 Outpatient DMG DMG [id number] [facility] 2021-03-26 12:00:00 2021-03-26 12:00:00 Outpatient AMBREEN_CORINE CORNELLA [facility] [id number] [facility] 2021-03-17 12:03:00 2021-03-17 12:03:00 Outpatient AMBREEN_CORINE CORNELLA [facility] [id number] [facility] 2021-03-10 11:10:00 2021-03-10 11:10:00 Outpatient AMBREEN_CORINE CORNELLA [facility] [id number] [facility] 2021-01-28 09:07:00 2021-01-28 09:07:00 Outpatient AMBREEN_CORINE CORNELLA [facility] [id number] [facility] 2021-01-27 04:35:00 2021-01-27 04:35:00 Outpatient AMBREEN_CORINE CORNELLA [facility] [id number] [facility] 2021-01-16 11:22:00 2021-01-16 11:22:00 Outpatient AMBREEN_CORINE CORNELLA [facility] [id number] [facility] 2020-12-19 09:14:00 2020-12-19 09:14:00 Outpatient AMBREEN_CORINE CORNELLA [facility] [id number] [facility] 2020-11-14 02:58:00 2020-11-14 02:58:00 Outpatient AMBREEN_CORINE CORNELLA [facility] [id number] [facility] 2020-09-05 10:55:00 2020-09-05 10:55:00 Outpatient AMBREEN_CORINE CORNELLA [facility] [id number] [facility] 2020-09-04 08:23:00 2020-09-04 08:23:00 Outpatient AMBREEN_CORINE JONES [facility] [id number] [facility] 2020-09-03 04:35:00 2020-09-03 04:35:00 Outpatient AMBREEN_CORINE JONES [facility] [id number] [facility] 2020-09-03 00:00:00 2020-09-03 00:00:00 Nati Kelly MD: [id number], [address], [place] [address] , Ph. [facility] [id number] [facility] 2020-08-27 03:50:00 2020-08-27 03:50:00 Outpatient AMBREEN_CORINE [place] [id number] [facility] 2020-08-19 03:28:00 2020-08-19 03:28:00 Outpatient AMBREEN_CORINE JONES [facility] [id number] [facility] 2020-08-18 08:51:00 2020-08-18 08:51:00 Outpatient AMBREEN_CORINE JONES [facility] [id number] [facility] 2020-08-15 02:15:00 2020-08-15 02:15:00 Outpatient AMBREEN_CORINE JONES [facility] [id number] [facility] 2020-08-13 11:18:00 2020-08-13 11:18:00 Outpatient AMBREEN_CORINE JONES [facility] [id number] [facility] 2020-07-25 05:16:00 2020-07-25 05:16:00 Outpatient AMBREEN_CORINE JONES [facility] [id number] [facility] 2020-07-25 01:02:00 2020-07-25 01:02:00 Outpatient AMBREEN_CORINE JONES [facility] [id number] [facility] 2020-02-28 02:48:00 2020-02-28 02:48:00 Outpatient Shield MMG MMG [id number] [facility] 2020-01-31 01:02:00 2020-01-31 01:02:00 Outpatient AMBREEN_CORINE JONES [facility] [id number] [facility] 2019-12-26 11:01:00 2019-12-26 11:01:00 Outpatient AMBREEN_CORINE JONES [facility] [id number] [facility] 2019-12-25 12:00:00 2019-12-25 12:00:00 Outpatient AMBREEN_CORINE JONES [facility] [id number] [facility] 2019-12-25 00:00:00 2019-12-25 00:00:00 Nati Kelly MD: [address] [place] [phone] , Ph. [facility] [id number] [facility] 2019-09-30 11:10:00 2019-09-30 11:10:00 Outpatient AMBREEN_CORINE JONES [facility] [id number] [facility] 2019-09-14 04:26:00 2019-09-14 04:26:00 Outpatient AMBREEN_CORINE JONES [facility] [id number] [facility] 2019-08-08 02:35:00 2019-08-08 02:35:00 Outpatient AMBREEN_CORINE JONES [facility] [id number] [facility] 2019-07-13 03:22:2019-07-13 03:22:00 Outpatient AMBREEN_CORINE JONES [facility] [id number] [facility] 2019-07-13 00:00:00 2019-07-13 00:00:00 Palmer Guan MD: [id number], [address], [place] [address] , Ph[address] [facility] [id number] [facility] 2019-07-12 03:26:00 2019-07-12 03:26:00 Outpatient AMBREEN_CORINE JONES [facility] [id number] [facility] 2019-07-12 00:00:00 2019-07-12 00:00:00 Nati Kelly MD: [place] [address] , Ph. [facility] [id number] [facility] 2019-05-17 05:34:00 2019-05-17 05:34:00 Outpatient AMBREEN_CORINE JONES [facility] [id number] [facility] 2019-05-17 00:00:00 2019-05-17 00:00:00 Nati Kelly MD: [address] [place] [address] , Ph. [facility] [id number] [facility] 2019-04-17 03:07:00 2019-04-17 03:07:00 Outpatient AMBREEN_CORINE JONES [facility] [id number] [facility] 2019-03-20 00:00:00 2019-03-20 00:00:00 Nati Kelly MD: [place] [address] , Ph. [facility] [id number] [facility] 2019-02-06 00:00:00 2019-02-06 00:00:00 Nati Kelly MD: [address] [place] [address] , Ph. [facility] Medical [id number] [facility] 2018-12-08 00:00:00 2018-12-08 00:00:00 Maryam Carrillo, ONCOLOGY ADMIN: [address] [place] [address] , Ph. [phone] [facility] Behavioral Health [id number] [facility] 2018-12-06 00:00:00 2018-12-06 00:00:00 NIKO OsorioW: [address] [place] [address] , Ph. [phone] [facility] [id number] [facility] 2018-12-05 00:00:00 2018-12-05 00:00:00 Nati Kelly MD: [address] [place] [address] , Ph. [facility] [id number] [facility] 2018-06-09 00:00:00 2018-06-09 00:00:00 Porsche Navarro, INVESTOR RELATIONS DIRECTOR: [address], [address], [place] [address] , Ph. [facility] [phone] 0228 [facility] Results Test Description Test Time Test Comments Results Result Co mments Source [facility] 2000 panel - Serum or [id number] 00:00:00* Test Item Value Reference Range Interpretation Comme nts Glucose [Mass/volume] in Ser um or Plasma (test code = 2345-7) 289 mg/dL 65-99 H Urea nitrogen [Mass/volume] in Serum or Plasma (test code = 3094-0) 31 mg/dL 8-27 H Creatinine [Mass/volume] in Serum or Plasma (test code = 2160-0) 1.07 mg/dL 0.57-1.00 H Glomerular filtration rate/1.73 sq M.predicted among non-blacks [Volume Rate/Area] in Serum, Plasma or Blood by Creatinine-based formula (CKD-EPI) (test code = 63031-1) 54 mL/min/1.73 >59 L Glomerular filtration rate/1.73 sq M.predicted among blacks [Volume Rate/Area] in Serum, Plasma or Blood by Creatinine-based formula (CKD-EPI) (test code = 20078-5) 62 mL/min/1.73 >59 Urea nitrogen/Creatinine [Ma ss Ratio] in Serum or Plasma (test code = 3097-3) 29 12-28 H Sodium [Moles/volume] in Ser um or Plasma (test code = 2951-2) 136 mmol/L 134-144 Potassium [Moles/volume] in Serum or Plasma (test code = 2823-3) 4.6 mmol/L 3.5-5.2 Chloride [Moles/volume] in Serum or Plasma (test code = 2075-0) 100 mmol/L 96-106 Carbon dioxide, total [Moles/volume] in Serum or Plasma (test code = 2027-9) 20 mmol/L 20-29 Calcium [Mass/volume] in Ser um or Plasma (test code = 02059-7) 9.7 mg/dL 8.7-10.3 Protein [Mass/volume] in Ser um or Plasma (test code = 2885-2) 7.0 g/dL 6.0-8.5 Albumin [Mass/volume] in Ser um or Plasma (test code = 1751-7) 4.4 g/dL 3.8-4.8 Globulin [Mass/volume] in Serum by calculation (test code = 05042-9) 2.6 g/dL 1.5-4.5 Albumin/Globulin [Mass Ratio ] in Serum or Plasma (test code = 1759-0) 1.7 1.2-2.2 Bilirubin.total [Mass/volume ] in Serum or Plasma (test code = 1975-2) 0.7 mg/dL 0.0-1.2 Alkaline phosphatase [Enzymatic activity/volume] in Serum or Plasma (test code = 6768-6) 91 IU/L 39-117 Aspartate aminotransferase [Enzymatic activity/volume] in Serum or Plasma (test code = 1920-8) 18 IU/L 0-40 Alanine aminotransferase [Enzymatic activity/volume] in Serum or Plasma (test code = 1742-6) 12 IU/L 0-32 [facility] Auto Differential panel - Blood 2019-12-06 00:00:00* Test Item Value Reference Range Interpretation Comme nts Leukocytes [#/volume] in Blo od by Automated count (test code = 6690-2) 6.1 x10e3/uL 3.4-10.8 Erythrocytes [#/volume] in Blood by Automated count (test code = 789-8) 4.84 x10e6/uL 3.77-5.28 Hemoglobin [Mass/volume] in Blood (test code = 718-7) 14.1 g/dL 11.1-15.9 Hematocrit [Volume Fraction] of Blood by Automated count (test code = 4544-3) 42.6 % 34.0-46.6 MCV [Entitic volume] by Automated count (test code = 787-2) 88 fL 79-97 MCH [Entitic mass] by Automa marcell count (test code = 785-6) 29.1 pg 26.6-33.0 MCHC [Mass/volume] by Automa marcell count (test code = 786-4) 33.1 g/dL 31.5-35.7 Erythrocyte distribution wid th [Ratio] by Automated count (test code = 788-0) 12.9 % 11.7-15.4 Platelets [#/volume] in Bloo d by Automated count (test code = 777-3) 178 x10e3/uL 150-450 Neutrophils/100 leukocytes i n Blood by Automated count (test code = 770-8) 49 % not estab. Lymphocytes/100 leukocytes i n Blood by Automated count (test code = 736-9) 41 % not estab. Monocytes/100 leukocytes in Blood by Automated count (test code = 5905-5) 6 % not estab. Eosinophils/100 leukocytes i n Blood by Automated count (test code = 713-8) 3 % not estab. Basophils/100 leukocytes in Blood by Automated count (test code = 706-2) 1 % not estab. immature cells (test code = immature cells) phys therapist Neutrophils [#/volume] in Bl ood by Automated count (test code = 751-8) 3.0 x10e3/uL 1.4-7.0 Lymphocytes [#/volume] in Bl ood by Automated count (test code = 731-0) 2.5 x10e3/uL 0.7-3.1 Monocytes [#/volume] in Bloo d by Automated count (test code = 742-7) 0.4 x10e3/uL 0.1-0.9 Eosinophils [#/volume] in Bl ood by Automated count (test code = 711-2) 0.2 x10e3/uL 0.0-0.4 Basophils [#/volume] in Bloo d by Automated count (test code = 704-7) 0.0 x10e3/uL 0.0-0.2 Immature granulocytes/100 leukocytes in Blood by Automated count (test code = 32573-0) 0 % not estab. Immature granulocytes [#/volume] in Blood by Automated count (test code = 65023-7) 0.0 x10e3/uL 0.0-0.1 Nucleated erythrocytes/100 leukocytes [Ratio] in Blood by Automated count (test code = 08441-4) phys therapist Morphology [Interpretation] in Blood Narrative (test code = 89875-7) phys therapist [facility] Program[facility] panel, [id number] 00:00:00 * Test Item Value Reference Range Interpretation Comme nts Cholesterol [Mass/volume] in Serum or Plasma (test code = 2093-3) 207 mg/dL 100-199 H Triglyceride [Mass/volume] i n Serum or Plasma (test code = 2571-8) 177 mg/dL 0-149 H Cholesterol in HDL [Mass/vol ume] in Serum or Plasma (test code = 2085-9) 71 mg/dL >39 Cholesterol in VLDL [Mass/vo lume] in Serum or Plasma by calculation (test code = 26443-2) 35 mg/dL 5-40 Cholesterol in LDL [Mass/vol ume] in Serum or Plasma by calculation (test code = 99796-2) 101 mg/dL 0-99 H Laboratory comment [Text] in Report Narrative (test code = 34098-1) phys therapist Cholesterol.total/Cholestero l.in HDL [Mass ratio] in Serum or Plasma (test code = 9830-1) 2.9 ratio 0.0-4.4 Cholesterol in LDL/Cholester ol in HDL [Mass Ratio] in Serum or Plasma (test code = 79286-1) 1.4 ratio 0.0-3.2 [facility], [id number] 00:00:00* Test Item Value Reference Range Interpretation Comme nts interpretation (test code = interpretation) note pdf (test code = pdf) not applicable [facility] [id number] 00:00:00* Test Item Value Reference Range Interpretation Comme nts interpretation (test code = interpretation) note pdf (test code = pdf) . [facility] [id number] 00:00:00* Test Item Value Reference Range Interpretation Comme nts pdf (test code = pdf) not applicable [facility]/Hemoglobin.total in [id number] 00:00:00* Test Item Value Reference Range Interpretation Comme nts Hemoglobin A1c/Hemoglobin.to keara in Blood (test code = 4548-4) 13.4 % 4.8-5.6 H [facility] virus Ab Signal/Cutoff in Serum or Plasma by [id number] 00:00:00* Test Item Value Reference Range Interpretation Comme nts Hepatitis C virus Ab Signal/ Cutoff in Serum or Plasma by Immunoassay (test code = 17506-0) <0.1 0.0-0.9 [facility] 2000 panel - Serum or [id number] 00:00:00* Test Item Value Reference Range Interpretation Comme nts Glucose [Mass/volume] in Ser um or Plasma (test code = 2345-7) 202 mg/dL 65-99 H Urea nitrogen [Mass/volume] in Serum or Plasma (test code = 3094-0) 27 mg/dL 8-27 Creatinine [Mass/volume] in Serum or Plasma (test code = 2160-0) 1.06 mg/dL 0.57-1.00 H eGFR if nonafricn AM (test code = eGFR if nonafricn AM) 55 mL/min/1.73 >59 L eGFR if africn AM (test code = eGFR if africn AM) 63 mL/min/1.73 >59 Urea nitrogen/Creatinine [Ma ss Ratio] in Serum or Plasma (test code = 3097-3) 25 12-28 Sodium [Moles/volume] in Ser um or Plasma (test code = 2951-2) 139 mmol/L 134-144 Potassium [Moles/volume] in Serum or Plasma (test code = 2823-3) 5.2 mmol/L 3.5-5.2 Chloride [Moles/volume] in Serum or Plasma (test code = 2074-0) 100 mmol/L 96-106 Carbon dioxide, total [Moles/volume] in Serum or Plasma (test code = 2027-) 19 mmol/L 20-29 L Calcium [Mass/volume] in Ser um or Plasma (test code = 76893-9) 9.8 mg/dL 8.7-10.3 Protein [Mass/volume] in Ser um or Plasma (test code = 2885-2) 6.9 g/dL 6.0-8.5 Albumin [Mass/volume] in Ser um or Plasma (test code = 1751-7) 4.3 g/dL 3.8-4.8 Globulin [Mass/volume] in Serum by calculation (test code = 67428-8) 2.6 g/dL 1.5-4.5 Albumin/Globulin [Mass Ratio ] in Serum or Plasma (test code = 1759-0) 1.7 1.2-2.2 Bilirubin.total [Mass/volume ] in Serum or Plasma (test code = 1974-) 0.7 mg/dL 0.0-1.2 Alkaline phosphatase [Enzymatic activity/volume] in Serum or Plasma (test code = 6768-6) 85 IU/L 39-117 Aspartate aminotransferase [Enzymatic activity/volume] in Serum or Plasma (test code = 1920-8) 23 IU/L 0-40 Alanine aminotransferase [Enzymatic activity/volume] in Serum or Plasma (test code = 1742-6) 13 IU/L 0-32 [facility] CKD [id number] 00:00:00* Test Item Value Reference Range Interpretation Comme nts interpretation (test code = interpretation) note pdf image (test code = pdf image) . [facility] 2000 panel - Serum or [id number] 00:00:00* Test Item Value Reference Range Interpretation Comme nts Glucose [Mass/volume] in Ser um or Plasma (test code = 2345-7) 109 mg/dL 65-99 H Urea nitrogen [Mass/volume] in Serum or Plasma (test code = 3094-0) 40 mg/dL 8-27 H Creatinine [Mass/volume] in Serum or Plasma (test code = 2160-0) 1.42 mg/dL 0.57-1.00 H eGFR if nonafricn AM (test code = eGFR if nonafricn AM) 39 mL/min/1.73 >59 L eGFR if africn AM (test code = eGFR if africn AM) 44 mL/min/1.73 >59 L Urea nitrogen/Creatinine [Ma ss Ratio] in Serum or Plasma (test code = 3097-3) 28 12-28 Sodium [Moles/volume] in Ser um or Plasma (test code = 2951-2) 140 mmol/L 134-144 Potassium [Moles/volume] in Serum or Plasma (test code = 2823-3) 5.4 mmol/L 3.5-5.2 H Chloride [Moles/volume] in Serum or Plasma (test code = 2075-0) 99 mmol/L 96-106 Carbon dioxide, total [Moles/volume] in Serum or Plasma (test code = 2027-9) 21 mmol/L 20-29 Calcium [Mass/volume] in Ser um or Plasma (test code = 42158-6) 9.9 mg/dL 8.7-10.3 Protein [Mass/volume] in Ser um or Plasma (test code = 2885-2) 7.3 g/dL 6.0-8.5 Albumin [Mass/volume] in Ser um or Plasma (test code = 1751-7) 4.4 g/dL 3.6-4.8 Globulin [Mass/volume] in Serum by calculation (test code = 31256-1) 2.9 g/dL 1.5-4.5 Albumin/Globulin [Mass Ratio ] in Serum or Plasma (test code = 1759-0) 1.5 1.2-2.2 Bilirubin.total [Mass/volume ] in Serum or Plasma (test code = 1974-2) 0.6 mg/dL 0.0-1.2 Alkaline phosphatase [Enzymatic activity/volume] in Serum or Plasma (test code = 6768-6) 93 IU/L 39-117 Aspartate aminotransferase [Enzymatic activity/volume] in Serum or Plasma (test code = 1920-8) 25 IU/L 0-40 Alanine aminotransferase [Enzymatic activity/volume] in Serum or Plasma (test code = 1742-6) 17 IU/L 0-32 [facility] 1996 panel - Serum or Plasma 2019-04-19 00:00:00* Test Item Value Reference Range Interpretation Comme nts Cholesterol [Mass/volume] in Serum or Plasma (test code = 2093-3) 209 mg/dL 100-199 H Triglyceride [Mass/volume] i n Serum or Plasma (test code = 2571-8) 91 mg/dL 0-149 Cholesterol in HDL [Mass/vol ume] in Serum or Plasma (test code = 2085-9) 93 mg/dL >39 Cholesterol in VLDL [Mass/vo lume] in Serum or Plasma by calculation (test code = 71558-8) 18 mg/dL 5-40 Cholesterol in LDL [Mass/vol ume] in Serum or Plasma by calculation (test code = 97904-6) 98 mg/dL 0-99 comment: (test code = comment:) phys therapist [facility], [id number] 00:00:00* Test Item Value Reference Range Interpretation Comme nts interpretation (test code = interpretation) note pdf image (test code = pdf image) not applicable [facility] [id number] 00:00:00* Test Item Value Reference Range Interpretation Comme nts interpretation (test code = interpretation) note pdf image (test code = pdf image) . [facility] patient [id number] 00:00:00* Test Item Value Reference Range Interpretation Comme nts pdf image (test code = pdf image) not applicable [facility] HospitalHem[facility] A1c/Hemoglobin.total in [id number] 00:00:00* Test Item Value Reference Range Interpretation Comme nts Hemoglobin A1c/Hemoglobin.to keara in Blood (test code = 4548-4) 11.2 % 4.8-5.6 H [facility] [id number] 00:00:00* Test Item Value Reference Range Interpretation Comme nts interpretation (test code = interpretation) note pdf image (test code = pdf image) . [facility] patient [id number] 00:00:00* Test Item Value Reference Range Interpretation Comme nts pdf image (test code = pdf image) not applicable [facility] A1c/Hemoglobin.total in [id number] 00:00:00* Test Item Value Reference Range Interpretation Comme nts Hemoglobin A1c/Hemoglobin.to keara in Blood (test code = 4548-4) 10.6 % 4.8-5.[address] [facility] ProgramCom[facility] 2000 panel - Serum or [id number] 00:00:00* Test Item Value Reference Range Interpretation Comme nts Glucose [Mass/volume] in Ser um or Plasma (test code = 2345-7) 196 mg/dL 65-99 H Urea nitrogen [Mass/volume] in Serum or Plasma (test code = 3094-0) 27 mg/dL 8-27 Creatinine [Mass/volume] in Serum or Plasma (test code = 2160-0) 1.17 mg/dL 0.57-1.00 H eGFR if nonafricn AM (test code = eGFR if nonafricn AM) 49 mL/min/1.73 >59 L eGFR if africn AM (test code = eGFR if africn AM) 56 mL/min/1.73 >59 L Urea nitrogen/Creatinine [Ma ss Ratio] in Serum or Plasma (test code = 3097-3) 23 12-28 Sodium [Moles/volume] in Ser um or Plasma (test code = 2951-2) 140 mmol/L 134-144 Potassium [Moles/volume] in Serum or Plasma (test code = 2823-3) 4.7 mmol/L 3.5-5.2 Chloride [Moles/volume] in Serum or Plasma (test code = 5-0) 102 mmol/L 96-106 Carbon dioxide, total [Moles/volume] in Serum or Plasma (test code = 2027-9) 20 mmol/L 20-29 Calcium [Mass/volume] in Ser um or Plasma (test code = 64723-1) 9.5 mg/dL 8.7-10.3 Protein [Mass/volume] in Ser um or Plasma (test code = 2885-2) 7.1 g/dL 6.0-8.5 Albumin [Mass/volume] in Ser um or Plasma (test code = 1751-7) 4.3 g/dL 3.6-4.8 Globulin [Mass/volume] in Serum by calculation (test code = 04526-4) 2.8 g/dL 1.5-4.5 Albumin/Globulin [Mass Ratio ] in Serum or Plasma (test code = 1759-0) 1.5 1.2-2.2 Bilirubin.total [Mass/volume ] in Serum or Plasma (test code = 1975-2) 0.6 mg/dL 0.0-1.2 Alkaline phosphatase [Enzymatic activity/volume] in Serum or Plasma (test code = 6768-6) 95 IU/L 39-117 Aspartate aminotransferase [Enzymatic activity/volume] in Serum or Plasma (test code = 1920-8) 24 IU/L 0-40 Alanine aminotransferase [Enzymatic activity/volume] in Serum or Plasma (test code = 1742-6) 16 IU/L 0-32 [facility] ProgramMicroalbumin/Creatinine [Mass Ratio] in [id number] 00:00:00* Test Item Value Reference Range Interpretation Comme nts Creatinine [Mass/volume] in Urine (test code = 2161-8) 55.3 mg/dL not estab. Microalbumin [Mass/volume] i n Urine (test code = 58316-3) 10.6 ug/mL not estab. Albumin/Creatinine [Mass ratio] in Urine (test code = 9318-7) 19.2 mg/g creat 0.0-30.0 [facility]
--- NOTE | 2024-04-20 16:59 | RAD REPORT ---
EXAMINATION: US RIGHT LOWER EXTREMITY VENOUS DOPPLER CLINICAL INDICATION: PAIN RIGHT TECHNIQUE: Complete bilateral duplex sonography of the RIGHT lower extremity veins was performed. The examination included compression for vein patency, color Doppler imaging and flow augmentation in response to distal compression of the distal external iliac, common femoral, femoral, popliteal, tibi al, and great and small saphenous veins. COMPARISON: No prior exam. FINDINGS: Duplex sonography testing of the veins of the RIGHT lower extremity was performed. Color flow imaging shows all veins to be compressible with [id number] color filling. Pulsatile and phasic flow is present within all lower extremity deep and superficial veins examined. IMPRESSION: There is no deep vein or superficial vein thrombosis.
--- NOTE | 2024-04-20 17:00 | RAD REPORT ---
EXAMINATION:Lower Extremity Artery [employer] CLINICAL INDICATION: Female, 73 years old. PAIN RIGHT TECHNIQUE: Arterial duplex ultrasound was performed of the right lower extremity with real-time, colo r-flow, and spectral wave Doppler evaluation. COMPARISON: No prior exam. FINDINGS: Mild plaque throughout the evaluated arterial system. Triphasic waveforms are seen throughout the evaluated right lower extremity arterial system, to the l evel of the dorsalis pedis artery. No other suspicious findings. IMPRESSION: No significant flow abnormality seen.
[2024-04-20] MEDS ORDERED: methocarbamoL 750 MG TAB ONE (17:02)
[2024-04-20] MEDS ORDERED: HYDROCODONE/APAP 5/325 MG TAB ONE (17:02)
--- NOTE | 2024-04-20 17:20 | ER ---
Nurse's Notes [facility] Name: Caryl Watt Age: 73 yrs Sex: Female : 1950 Arrival Date: 04/20/2024 Time: 15:13 Bed 13 Private MD: Diagnosis: Sciatica, right side Presentation: 04/20 15:26 Chief complaint: Patient states: R leg pain that began yesterday. No known injury. ss Coronavirus screen: Client denies travel out of the [place] in the last 14 days. Ebola Screen: Patient denies exposure to infectious person. Patient denies travel to an Ebola-affected area in the 21 days before illness onset. Initial Sepsis Screen: Does the patient meet any 2 criteria? No. Patient's initial sepsis screen is negative. Does the patient have a suspected source of infection? No. Patient's initial sepsis screen is negative. Risk Assessment: Do you want to hurt yourself or someone else? Patient reports no desire to harm self or others. Onset of symptoms was April 19, 2024. 15:26 Method Of Arrival: Wheelchair ss 15:26 Acuity: KAYLENE 3 ss Historical: - Allergies: 15:30 NKA; ss 15:30 Strawberries; ss - PMHx: 15:30 Hyperlipidemia; GERD; Hypertension; Diabetes - IDDM; Anxiety; ss - PSHx: 15:30 Ligation of fallopian tube; partial hysterectomy; ss - Immunization history:: Adult Immunizations unknown. - Infectious Disease History:: Denies. - Social history:: Smoking status: Patient/guardian denies using tobacco, the patient reports quitting approximately 20 years ago. Screenin:42 [facility] ED Fall Risk Assessment (Adult) History of falling in the last 3 months, cm10 including since admission No falls in past 3 months (0 pts) Confusion or Disorientation No (0 pts) Intoxicated or Sedated No (0 pts) Impaired Gait Yes (1 pt) Mobility Assist Device Used Yes (1 pt) Altered Elimination No (0 pt) Score/Fall Risk Level 0 - 2 = Low Risk Oriented to surroundings, Maintained a safe environment, Hourly rounding (assess needs \T\ fall precautionary measures) done. Abuse screen: Denies threats or abuse. Denies injuries from another. Nutritional screening: No deficits noted. Tuberculosis screening: No symptoms or risk factors identified. Assessment: 17:42 General: Appears in no apparent distress. uncomfortable, Behavior is calm, cooperative. cm10 Pain: Complains of pain in right leg Pain currently is 10 out of 10 on a pain scale. Neuro: No deficits noted. Level of Consciousness is awake, alert, obeys commands, Oriented to person, place, time, situation, Appropriate for age. Respiratory: No deficits noted. Airway is patent Respiratory effort is even, unlabored, Respiratory pattern is regular, symmetrical. Musculoskeletal: Reports pain in right leg. Vital Signs: 15:26 BP 144 / 56; Pulse 67; Resp 16; Temp 98.3(TE); Pulse Ox 99% on R/A; Weight 86.18 kg; ss Height 4 ft. 10 in. ; Pain 10/10; 15:26 Body Mass Index 39.71 (86.18 kg, 147.32 cm) ss 15:26 Pain Scale: Adult ss ED Course: 15:17 Patient arrived in ED. ra3 15:17 Murtaza Campbell PA is PHCP. cp 15:17 Demian Orta MD is Attending Physician. cp 15:30 Triage completed. ss 15:30 Arm band placed on left wrist. ss 16:24 Falguni Neff, YAIR is Primary Nurse. cm10 16:51 US Extremity Venous Unilateral Ltd In Process Unspecified. EDMS 16:51 Lower Extremity Artery Uni Ltd US In Process Unspecified. EDMS 17:43 Patient has correct armband on for positive identification. Provided Education on: cm10 follow-up instrictions. Cardiac monitoring not applicable on this patient. 17:46 No provider procedures requiring assistance completed. Patient did not have IV access cm10 during this emergency room visit. Administered Medications: 16:12 CANCELLED (Physician Discretion): hydrocodone-acetaminophen(7.5 mg-325 mg) 1 tabs PO cp once; RASS on ADMIN: Combtv4, Very Agttd3, Agttd2, Rstlss1, AlertClm0, Drwsy-1, Lt Sdtn-2, Mod Sdtn-3, Dp Sdtn-4, UnArsble-5 16:12 CANCELLED (Physician Discretion): [id number] mg PO once cp 17:26 Drug: Methocarbamol PO 750 mg PO once Route: PO; cm10 17:42 Follow up: Response: No adverse reaction cm10 17:26 Drug: HYDROcodone-acetaminophen PO 5 mg-325 mg 1 tabs PO once Route: PO; cm10 17:41 Follow up: Response: No adverse reaction cm10 Medication: 17:42 VIS not applicable for this client. cm10 Outcome: 17:19 Discharge ordered by . cp 17:47 Discharged to home via wheelchair, with significant other, cm10 17:47 Condition: good 17:47 Discharge instructions given to patient, Instructed on discharge instructions, follow up and referral plans. Demonstrated understanding of instructions, follow-up care, medications, Prescriptions given X 2, 17:47 Patient left the ED. cm10 Signatures: Dispatcher [employer] EDMS Della Andersen RN RN Murtaza Dennison PA PA Falguni Castro RN RN cm10 Kiarra Hendrix ra3
--- NOTE | 2024-04-20 17:20 | EDPHYS ---
Physician Documentation [facility] Name: Caryl Watt Age: 73 yrs Sex: Female : 1950 Arrival Date: 04/20/2024 Time: 15:13 Bed 13 Private MD: ED Physician Demian Orta HPI: 04/20 16:20 This 73 yrs old Female presents to ER via Wheelchair with complaints of Leg cp Pain. 16:20 The patient presents with pain, that is acute. The complaints affect the back of right cp leg. Context: resulted from an unknown cause, right buttock pain. Onset: The symptoms/episode began/occurred yesterday, and became worse today. Associated signs and symptoms: Pertinent positives: calf tenderness, Pertinent negatives fever, numbness, weakness. Treatment prior to arrival includes: no previous treatment. 16:20 Patient reports pain starts in right buttock and radiates down posterior aspect of cp right leg. Historical: - Allergies: 15:30 NKA; ss 15:30 Strawberries; ss - PMHx: 15:30 Hyperlipidemia; GERD; Hypertension; Diabetes - IDDM; Anxiety; ss - PSHx: 15:30 Ligation of fallopian tube; partial hysterectomy; ss - Immunization history:: Adult Immunizations unknown. - Infectious Disease History:: Denies. - Social history:: Smoking status: Patient/guardian denies using tobacco, the patient reports quitting approximately 20 years ago. ROS: 16:25 MS/extremity: Positive for pain, of the back of right leg, Negative for injury or acute cp deformity, decreased range of motion, paresthesias, 16:25 Constitutional: Negative for body aches, chills, fever, cp Exam: 16:30 Constitutional: The patient appears in no acute distress, alert, awake, non-toxic, well cp developed, well nourished, uncomfortable, overweight 16:30 Head/Face: Normocephalic, atraumatic. cp 16:30 Eyes: Periorbital structures: appear normal, Conjunctiva: normal, no exudate, no injection, Sclera: no appreciated abnormality, Lids and lashes: appear normal, bilaterally, 16:30 ENT: External ear(s): are unremarkable, Nose: is normal, Mouth: Lips: moist, Oral mucosa: moist, Posterior pharynx: Airway: no evidence of obstruction, patent, 16:30 Neck: ROM/movement: is normal, is supple, without pain, no range of motions limitations, 16:30 Chest/axilla: Inspection: normal, 16:30 Cardiovascular: Rate: normal, Rhythm: regular, 16:30 Respiratory: the patient does not display signs of respiratory distress, Respirations: normal, no use of accessory muscles, no retractions, labored breathing, is not present, Breath sounds: are clear throughout, no decreased breath sounds, 16:30 Abdomen/GI: Inspection: abdomen appears normal, Palpation: abdomen is soft and non-tender, in all quadrants, 16:30 Back: CVA tenderness, is absent, vertebral tenderness, is not appreciated, 16:30 Musculoskeletal/extremity: Extremities: noted in the right leg: pain, tenderness, There is no evidence of decreased ROM, swelling, ROM: limited passive range of motion due to pain, in the right leg, 16:30 Skin: cellulitis, is not appreciated, no rash present. Vital Signs: 15:26 BP 144 / 56; Pulse 67; Resp 16; Temp 98.3(TE); Pulse Ox 99% on R/A; Weight 86.18 kg; ss Height 4 ft. 10 in. ; Pain 10/10; 15:26 Body Mass Index 39.71 (86.18 kg, 147.32 cm) 15:26 Pain Scale: Adult ss MDM: 15:25 Medical Screening Exam initiated 16:15 Differential diagnosis: dvt, cellulitis, sciatica. 17:15 Data reviewed: vital signs, nurses notes, radiologic studies, ultrasound. 17:19 I considered the following discharge prescriptions or medication management in the emergency department Medications were administered in the Emergency Department. See MAR. 17:19 Care significantly affected by the following chronic conditions: Diabetes, cp Hypertension. Counseling: I had a detailed discussion with the patient and/or guardian regarding the historical points, exam findings, and any diagnostic results supporting the discharge/admit diagnosis, radiology results, to return to the emergency department if symptoms worsen or persist or if there are any questions or concerns that arise at home. Response to treatment: the patient's symptoms have mildly improved after treatment, and as a result, I will discharge patient. 04/20 16:11 Order name: Extremity Venous Unilateral Ltd; Complete Time: 17:11 04/20 16:11 Order name: Lower Extremity Artery Uni Ltd ; Complete Time: 17:11 cp Administered Medications: 16:12 CANCELLED (Physician Discretion): hydrocodone-acetaminophen(7.5 mg-325 mg) 1 tabs PO cp once; RASS on ADMIN: Combtv4, Very Agttd3, Agttd2, Rstlss1, AlertClm0, Drwsy-1, Lt Sdtn-2, Mod Sdtn-3, Dp Sdtn-4, UnArsble-5 16:12 CANCELLED (Physician Discretion): [id number] mg PO once cp 17:26 Drug: Methocarbamol PO 750 mg PO once Route: PO; cm10 17:42 Follow up: Response: No adverse reaction cm10 17:26 Drug: HYDROcodone-acetaminophen PO 5 mg-325 mg 1 tabs PO once Route: PO; cm10 17:41 Follow up: Response: No adverse reaction cm10 Disposition: 04/21 13:54 Chart complete. cp Disposition Summary: 04/20/24 17:19 Discharge Ordered Notes: Location: Home cp Problem: new cp Symptoms: have improved cp Condition: Stable cp Diagnosis - Sciatica, right side cp Followup: cp - With: Private Physician - When: 2 - 3 days - Reason: Recheck today's complaints Discharge Instructions: - Discharge Summary Sheet cp - Sciatica cp Forms: - Medication Reconciliation Form cp - Antibiotic Education cp - Prescription Opioid Use cp - Patient Portal Instructions cp - Leadership Thank You Letter cp Prescriptions: - Celebrex 200 mg Oral capsule - take 1 capsule ORAL route every 12 hours As needed take with food; 20 capsule; cp Refills: 0, Product Selection Permitted - methocarbamol 750 mg Oral tablet - take 1 tablet ORAL route 3 times per day; 30 tablet; Refills: 0, Product cp Selection Permitted Addendum: 04/23/2024 10:02 Co-signature as Attending Physician, Demian Orta MD I reviewed the patient's care r n provided by the Advanced Practice Provider and agree with the diagnosis and treatment plan. Signatures: Dispatcher [employer] Demian Regan MD MD rn Blanchard, Shelby, RN RN ss Page, Corey, PA PA Falguni Castro RN RN cm10 Corrections: (The following items were deleted from the chart) 04/20 16:12 16:11 Hydrocodone-Acetaminophen PO (7.5 mg-325 mg) 1 tabs PO once; RASS on ADMIN: cp Combtv4, Very Agttd3, Agttd2, Rstlss1, AlertClm0, Drwsy-1, Lt Sdtn-2, Mod Sdtn-3, Dp Sdtn-4, UnArsble-5 ordered. cp 16:12 16:12 Lower Extremity Artery Uni Ltd+[id number].[email or web address].[email or web address] ordered. EDMS EDMS 16:12 16:12 Methocarbamol PO 500 mg PO once ordered. cp cp
[2024-04-20 17:54] VITALS: BP 144/56; TEMP 98.3; O2SAT 99
== END 2024-04-20 17:47 | disposition home or self-care (01) ==
LOC: ER 15:13
DX: M54.31 Sciatica, right side (principal)
CPT/HCPCS: 93926; 93971; 99283